=== PATIENT | female | born 1945 | race Caucasian/White ===

== ENCOUNTER → 2016-08-07 | Outpatient (CLI) | payer OTHER ==
[~2016-08-07] MED LIST: ALBU1AER9 INH; ASPEC81 PO; ATOR-22 PO; CHOL100010 PO; GLC500 PO; HYDCR25 EXT; METO25TA3 PO; OMEG10007 PO; PRLSR20 PO
--- NOTE | 2016-08-07 13:05 | MAMMOGRAPHY REPORT ---
BILATERAL DIGITAL SCREENING MAMMOGRAM WITH CAD: 08/07/2016 CLINICAL HISTORY: Routine screening. Patient has no complaints. TECHNIQUE: Current study was also evaluated with a Computer Aided Detection (CAD) system. Bilateral CC and MLO views were obtained. COMPARISON: Comparison is made to exams dated: 08/04/2015 mammogram, 08/01/2014 mammogram, 07/27/2013 m ammogram, 07/24/2012 mammogram, 07/17/2012 mammogram, and 07/15/2011 mammogram - [facility]. BREAST COMPOSITION: There are scattered areas of fibroglandular density in both breasts. FINDINGS: No suspicious masses, calcifications, or areas of architectural distortion are noted in ei ther breast. There has been no significant interval change compared to prior exams. Scattered bilater al benign-appearing calcifications are not significantly changed. A biopsy marker clip is again note d within the right medial breast. IMPRESSION: ACR BI-RADS CATEGORY 2: BENIGN There is no mammographic evidence of malignancy. A 1 year screening mammogram is recommended. The pa tient will receive written notification of the results. Approximately 10% of breast cancers are not detected with mammography. A negative mammographic report should not delay biopsy if a clinically suggestive mass is present. Jerilyn Hernández M.D. /:08/07/2016 09:25:23 Evaluator Transfer Students: Ermelinda MARTINEZ(Gurpreet)(Prabha)([place]), [facility] letter sent: Normal 1/2 BI-RADS Code: ACR BI-RADS Category 2: Benign
== END | disposition home or self-care (01) ==
LOC: C.MAMM 08:24
PROVIDERS: ATTEND Family Medicine
DX: Z12.31 Encounter for screening mammogram for malignant neoplasm of breast (principal)

== ENCOUNTER → 2017-01-21 | Day surgery (SDC) | payer OTHER ==
[2016-12-25 07:47] VITALS: Ht 161.3 cm; Wt 66.4 kg
[~2017-01-21] VITALS: Ht 161.3 cm; Wt 66.4 kg
[~2017-01-21] MED LIST changes: +500ML BSS 0.3ML EPI 1:1000PF IRRIG ONE; +ACETAMINOPHEN 325 MG TAB PO PRN; +ALBU18002 INH; -ALBU1AER9 INH; +AMVISC PLUS 0.8ML SYRINGE INT OCU ONE; +ASPCH81X PO; -ASPEC81 PO; +ATROPINE SULFATE 0.1 MG/ML 5ML SYR IV PRN; +BSS FLUSH ONE; -CHOL100010 PO; +EpHEDrine SULFATE INJ 50 MG/ML AMP IV PRN; +EpINEphrine INJ 1MG/ML AMP 1 MG/ML AMP ONE; -GLC500 PO; -HYDCR25 EXT; +LACTATED RINGER'S 1000ML 500 ML IV SCH; +LIDOCAINE 3.5% OPH GEL PER APPLICATION CHARGE ONE; +LIDOCAINE HCL 1% MPF 2 ML VIAL ONE; +LISI-461 PO; +METF750T PO; -METO25TA3 PO; +MIDAZOLAM HCL 1 MG/ML 2ML VIAL ONE; +NAPR1CAP12 PO; +OCUCOAT 1 ML SOLN IO ONE; +OMEP20CA9 PO; +PHENYLEPHRINE HCL 10% OP SOLN PER DROP CHARGE OPL SCH; +POVIDONE-IODINE OP SOLN 30 ML BTL ONE; -PRLSR20 PO; +PROPARACAINE 0.5% OP SOLN PER DROP CHARGE OPL SCH; +TOBRAMYCIN/DEXAMETHASONE OPH OINT PER APPLN CHARGE ONE
[2017-01-21] MEDS: PHENYLEPHRINE HCL 2.5% OP SOLN PER DROP CHARGE OPL SCH ×2 (06:42→06:49)
[2017-01-21] MEDS: TROPICAMIDE 1% OP SOLN PER DROP CHARGE OPL SCH ×2 (06:43→06:50)
[2017-01-21] MEDS: CYCLOPENTOLATE HCL 1% OP SOLN PER DROP CHARGE OPL SCH ×2 (06:44→06:51)
[2017-01-21] MEDS: KETOROLAC 0.5% OP SOLN PER DROP CHARGE OPL SCH ×2 (06:45→06:52)
[2017-01-21] MEDS: GATIFLOXACIN OP SOLN PER DROP CHARGE OPL SCH ×2 (06:46→06:56)
--- NOTE | 2017-01-21 06:59 | History & Physical Bridge - SC ---
H&P Re-Evaluation Bridge Note: I have examined the patient, reviewed the History & Physical and in the interval since the performance of the History & Physical I have noted the following changes of clinical significance: No changes noted
--- NOTE | 2017-01-21 07:44 | Discharge Instructions-SurgCtr ---
Discharge Instructions Date of Service Jan 21, 2017. Visit Reason for Visit: Left Cataract Discharge Discharge Diagnosis / Problem: cataract Discharge Goals Goal(s): Improve function Medications Stopped Medications Name(s): METFORMIN HELD 2 DAYS AGO Activity Recommendations Activity Limitations: per Instructions/Follow-up section Anesthesia . Post Anesthesia Instructions: If you have had General Anesthesia or IV Sedation: * Do not drive today. * Resume driving when surgeon permits. * Do not make important decisions or sign legal documents today. * Call surgeon for: 1. Temperature elevations greater than 101 degrees F. 2. Uncontrollable pain. 3. Excessive bleeding. 4. Persistent nausea and vomiting. 5. Medication intolerance (nausea, vomiting or rash). * For nausea and vomiting use only clear liquids such as: tea, soda, bouillon until nausea subsides, then gradually increase diet as tolerated. * If you have any concerns or questions, call your surgeon's office. If physician is unavailable and it is an emergency, call 911 or go to the nearest emergency room. . Diet Recommendations Home Diet: resume previous diet Procedures Procedures Performed: Left Cataract Phacoemulsification With Intraocular Lens Implant Pending Studies Studies pending at discharge: no Medical Emergencies . Who to Call and When: Medical Emergencies: If at any time you feel your situation is an emergency, please call 911 immediately. . Non-Emergent Contact Non-Emergency issues call your: [employer] . . "Provider Documentation" section prepared by Cash Sahu. .
[2017-01-21 07:45] VITALS: TEMP 36.6
--- NOTE | 2017-01-21 07:46 | [facility] Operative Report ---
Operative Report Date of Service Jan 21, 2017. Operative Report 1. PREOPERATIVE DIAGNOSIS: Cataract of the left eye. 2. POSTOPERATIVE DIAGNOSIS: Same. 3. PROCEDURE: Phacoemulsification with intraocular lens implantation of the left eye. SURGEON: Dr. Cash Sahu. ANESTHESIA: Topical Lidocaine gel, 1% Non- Preserved intracameral Lidocaine, and monitored intravenous sedation. INDICATIONS FOR THE PROCEDURE: The patient is a 71 - year-old female with a history of cataract of the left eye causing significant visual impairment. The details of the proposed procedure were explained to the patient who asked appropriate questions and following discussion of all risks, benefits and alternatives agreed to have the procedure done. 4. OPERATION AND FINDINGS: DESCRIPTION OF PROCEDURE: After informed consent was obtained, the patient was brought to the Operating Room at the [facility]. The patient was placed in a supine position and then the left eye was prepped and draped in the usual sterile fashion for intraocular surgery. A drop of topical Lidocaine gel was placed in the operative eye. A wire lid speculum was then placed in the fornices. A corneal paracentesis was then created temporally. The Non-Preserved Lidocaine was then instilled into the anterior chamber. The anterior chamber was then pressurized with viscoelastic. A 2.0 mm clear corneal incision was then created temporally. A cystotome was inserted into the anterior chamber and used to create a tear in the anterior lens capsule. This capsular tear was then used to create a small flap and the flap was dragged in a counterclockwise direction in order to create a continuous curvilinear capsulorrhexis. Hydrodissection was accomplished with balanced salt solution. Phacoemulsification of the lens nucleus was then performed in a standard [id number] technique. The phaco time was 29 seconds with an average power of 14 %. The remaining cortical material was removed using irrigation aspiration. The capsular bag was then filled with viscoelastic. A [employer]ch [employer] MI60L +21.5 diopters lens was then loaded into the injector and injected into the capsular bag. The remaining viscoelastic was removed with the irrigation aspiration handpiece. The wound was hydrated and then checked and found to be watertight. The intraocular pressure was checked and found to be adequate. The wire lid speculum was removed and the patient's face was cleaned and dried. TobraDex ointment was placed in the inferior fornix. The patient was discharged to the Recovery Room having tolerated the procedure well. There were no complications. The patient will be seen tomorrow in the office for follow-up. I attest to the content of the Intraoperative Record and any orders documented therein. Any exceptions are noted below.
--- NOTE | 2017-01-21 08:05 | Anesthesiology Progress Note ---
Anesthesia Post Op Note Date & Time Jan 21, 2017 at 08:05 Vital Signs Pain Intensity: 0 Vital Signs Past 12 Hours Date Time Temp Pulse Resp B/P (MAP) Pulse Ox O2 Delivery O2 Flow Rate FiO2 01/21/17 07:45 36.6 55 16 135/79 (97) 95 Room Air 01/21/17 06:34 36.8 62 22 154/82 (106) 94 Room Air Notes Mental Status: alert / awake / arousable, participated in evaluation Pt Amnestic to Procedure: No Nausea / Vomiting: adequately controlled Pain: adequately controlled Airway Patency, RR, SpO2: stable & adequate BP & HR: stable & adequate Hydration State: stable & adequate Anesthetic Complications: no major complications apparent Non distressing recall as discussed preop
[2017-01-21 08:11] VITALS: BP 154/83; PULSE 58; O2SAT 96
== END | disposition home or self-care (01) ==
LOC: X.SURG 06:06
PROVIDERS: ATTEND Ophthalmology
DX: E11.36 Type 2 diabetes mellitus with diabetic cataract (principal); I10 Essential (primary) hypertension; E78.5 Hyperlipidemia, unspecified; K21.9 Gastro-esophageal reflux disease without esophagitis; M81.0 Age-related osteoporosis without current pathological fracture; M15.9 Polyosteoarthritis, unspecified; Z85.828 Personal history of other malignant neoplasm of skin; Z79.82 Long term (current) use of aspirin; Z79.84 Long term (current) use of oral hypoglycemic drugs; Z79.899 Other long term (current) drug therapy; Z87.891 Personal history of nicotine dependence

== ENCOUNTER → 2017-02-18 | Day surgery (SDC) | payer OTHER ==
[2017-01-28 14:34] VITALS: Ht 161.3 cm; Wt 66.4 kg
[~2017-02-18] VITALS: Ht 161.3 cm; Wt 66.4 kg
[~2017-02-18] MED LIST changes: -PHENYLEPHRINE HCL 10% OP SOLN PER DROP CHARGE OPL SCH; -PROPARACAINE 0.5% OP SOLN PER DROP CHARGE OPL SCH; +PROPARACAINE 0.5% OP SOLN PER DROP CHARGE OPR SCH
[2017-02-18] MEDS: PHENYLEPHRINE HCL 2.5% OP SOLN PER DROP CHARGE OPR SCH ×2 (06:32→06:38)
[2017-02-18] MEDS: TROPICAMIDE 1% OP SOLN PER DROP CHARGE OPR SCH ×2 (06:33→06:39)
[2017-02-18] MEDS: CYCLOPENTOLATE HCL 1% OP SOLN PER DROP CHARGE OPR SCH ×2 (06:35→06:40)
[2017-02-18] MEDS: KETOROLAC 0.5% OP SOLN PER DROP CHARGE OPR SCH ×2 (06:36→06:41)
[2017-02-18] MEDS: GATIFLOXACIN OP SOLN PER DROP CHARGE OPR SCH ×2 (06:37→06:50)
--- NOTE | 2017-02-18 07:45 | [facility] Operative Report ---
Operative Report Date of Service Feb 18, 2017. Operative Report 1. PREOPERATIVE DIAGNOSIS: Cataract of the right eye. 2. POSTOPERATIVE DIAGNOSIS: Same. 3. PROCEDURE: Phacoemulsification with intraocular lens implantation of the right eye. SURGEON: Dr. Cash Sahu. ANESTHESIA: Topical Lidocaine gel, 1% Non- Preserved intracameral Lidocaine, and monitored intravenous sedation. INDICATIONS FOR THE PROCEDURE: The patient is a 72 - year-old female with a history of cataract of the right eye causing significant visual impairment. The details of the proposed procedure were explained to the patient who asked appropriate questions and following discussion of all risks, benefits and alternatives agreed to have the procedure done. 4. OPERATION AND FINDINGS: DESCRIPTION OF PROCEDURE: After informed consent was obtained, the patient was brought to the Operating Room at the [facility]. The patient was placed in a supine position and then the right eye was prepped and draped in the usual sterile fashion for intraocular surgery. A drop of topical Lidocaine gel was placed in the operative eye. A wire lid speculum was then placed in the fornices. A corneal paracentesis was then created temporally. The Non-Preserved Lidocaine was then instilled into the anterior chamber. The anterior chamber was then pressurized with viscoelastic. A 2.0 mm clear corneal incision was then created temporally. A cystotome was inserted into the anterior chamber and used to create a tear in the anterior lens capsule. This capsular tear was then used to create a small flap and the flap was dragged in a counterclockwise direction in order to create a continuous curvilinear capsulorrhexis. Hydrodissection was accomplished with balanced salt solution. Phacoemulsification of the lens nucleus was then performed in a standard [id number]-[id number]-[id number] technique. The phaco time was 28 seconds with an average power of 18 %. The remaining cortical material was removed using irrigation aspiration. The capsular bag was then filled with viscoelastic. A Bausch [employer] Lomb MI60L +20.5 diopters lens was then loaded into the injector and injected into the capsular bag. The remaining viscoelastic was removed with the irrigation aspiration handpiece. The wound was hydrated and then checked and found to be watertight. The intraocular pressure was checked and found to be adequate. The wire lid speculum was removed and the patient's face was cleaned and dried. TobraDex ointment was placed in the inferior fornix. The patient was discharged to the Recovery Room having tolerated the procedure well. There were no complications. The patient will be seen tomorrow in the office for follow-up. I attest to the content of the Intraoperative Record and any orders documented therein. Any exceptions are noted below.
--- NOTE | 2017-02-18 07:46 | Discharge Instructions-SurgCtr ---
Discharge Instructions Date of Service Feb 18, 2017. Visit Reason for Visit: Cataract Right Eye Discharge Discharge Diagnosis / Problem: cataract Discharge Goals Goal(s): Improve function Medications Stopped Medications Name(s): Metformin-last dose 02/14/17 Activity Recommendations Activity Limitations: per Instructions/Follow-up section Anesthesia . Post Anesthesia Instructions: If you have had General Anesthesia or IV Sedation: * Do not drive today. * Resume driving when surgeon permits. * Do not make important decisions or sign legal documents today. * Call surgeon for: 1. Temperature elevations greater than 101 degrees F. 2. Uncontrollable pain. 3. Excessive bleeding. 4. Persistent nausea and vomiting. 5. Medication intolerance (nausea, vomiting or rash). * For nausea and vomiting use only clear liquids such as: tea, soda, bouillon until nausea subsides, then gradually increase diet as tolerated. * If you have any concerns or questions, call your surgeon's office. If physician is unavailable and it is an emergency, call 911 or go to the nearest emergency room. . Diet Recommendations Home Diet: resume previous diet Procedures Procedures Performed: Right Eye Cataract Phacoemulsification With Intraoculars Lens Implant Pending Studies Studies pending at discharge: no Medical Emergencies . Who to Call and When: Medical Emergencies: If at any time you feel your situation is an emergency, please call 911 immediately. . Non-Emergent Contact Non-Emergency issues call your: [employer] . . "Provider Documentation" section prepared by Cash Sahu. .
[2017-02-18 07:48] VITALS: TEMP 36.6
--- NOTE | 2017-02-18 08:04 | Anesthesia Progress Nt - [facility] ---
Anesthesia Post Op Note Date & Time Feb 18, 2017 at 08:03 Vital Signs Pain Intensity: 0 Vital Signs Past 12 Hours Date Time Temp Pulse Resp B/P (MAP) Pulse Ox O2 Delivery O2 Flow Rate FiO2 02/18/17 07:48 36.6 60 16 121/78 (92) 96 Room Air 02/18/17 06:23 36.4 66 16 156/83 (107) 96 Room Air Notes Mental Status: alert / awake / arousable, participated in evaluation Pt Amnestic to Procedure: Yes Nausea / Vomiting: adequately controlled Pain: adequately controlled Airway Patency, RR, SpO2: stable & adequate BP & HR: stable & adequate Hydration State: stable & adequate Anesthetic Complications: no major complications apparent
[2017-02-18 08:14] VITALS: BP 146/80; PULSE 51; O2SAT 98
== END | disposition home or self-care (01) ==
LOC: X.SURG 06:06
PROVIDERS: ATTEND Ophthalmology
DX: E11.36 Type 2 diabetes mellitus with diabetic cataract (principal); H26.9 Unspecified cataract; I10 Essential (primary) hypertension; E78.5 Hyperlipidemia, unspecified; M81.0 Age-related osteoporosis without current pathological fracture; Z91.040 Latex allergy status; Z88.5 Allergy status to narcotic agent

== ENCOUNTER 2017-05-19 10:26 | Observation (INO) | payer OTHER ==
[~2017-05-19] VITALS: Ht 160 cm; Wt 66.6 kg
[~2017-05-19 10:26] MED LIST changes: -500ML BSS 0.3ML EPI 1:1000PF IRRIG ONE; -ACETAMINOPHEN 325 MG TAB PO PRN; -AMVISC PLUS 0.8ML SYRINGE INT OCU ONE; -ATROPINE SULFATE 0.1 MG/ML 5ML SYR IV PRN; -BSS FLUSH ONE; -EpHEDrine SULFATE INJ 50 MG/ML AMP IV PRN; -EpINEphrine INJ 1MG/ML AMP 1 MG/ML AMP ONE; -LACTATED RINGER'S 1000ML 500 ML IV SCH; -LIDOCAINE 3.5% OPH GEL PER APPLICATION CHARGE ONE; -LIDOCAINE HCL 1% MPF 2 ML VIAL ONE; -MIDAZOLAM HCL 1 MG/ML 2ML VIAL ONE; -OCUCOAT 1 ML SOLN IO ONE; -POVIDONE-IODINE OP SOLN 30 ML BTL ONE; -PROPARACAINE 0.5% OP SOLN PER DROP CHARGE OPR SCH; -TOBRAMYCIN/DEXAMETHASONE OPH OINT PER APPLN CHARGE ONE
[2017-05-19] MEDS ORDERED: SODIUM CHLORIDE 0.9% 1000ML 1,000 ML IV STA (11:00)
[2017-05-19 11:10] LABS: BASO % 1.2 %; BASO ABS # 0.18 K/uL (0-0.2); EOS % 2.8 %; EOS ABS # 0.41 K/uL (0-0.5); HEMATOCRIT 50.6 % (37-47); HEMOGLOBIN 16.1 g/dL (12.0-16.0); IG# 0.08 K/uL (0.00-0.02); LYMPH % 13.2 %; LYMPH ABS # 1.94 K/uL (1.2-3.4); MEAN CELL VOLUME 75.7 fL (80-100); MEAN CORPUSCULAR HEMOGLOBIN 24.1 pg (25-34); MEAN CORPUSCULAR HGB CONC 31.8 g/dl (32-36); MONO % 5.1 %; MONO ABS # 0.75 K/uL (0.11-0.59); NEUT % 77.2 %; NEUT ABS # 11.35 K/uL (1.4-6.5); PLATELET COUNT 655 K/uL (130-400); RED CELL DISTRIBUTION WIDTH CV 18.1 % (11.5-14.5); RED CELL DISTRIBUTION WIDTH SD 49.5 fL (36.4-46.3); WHITE BLOOD COUNT 14.71 K/uL (4.8-10.8)
[2017-05-19] MEDS ORDERED: ACETTAB15 PO (11:25)
[2017-05-19] MEDS ORDERED: CHOL1000 PO (11:25)
[2017-05-19] MEDS ORDERED: MAGN400T6 PO (11:25)
[2017-05-19] MEDS ORDERED: DICL1GEL12 TOP (11:25)
[2017-05-19 11:29] LABS: ALBUMIN 4.1 gm/dl (3.4-5.0); ALT/SGPT 25 U/L (12-78); BLOOD UREA NITROGEN 17 mg/dl (7-18); CALCIUM 9.5 mg/dl (8.5-10.1); CARBON DIOXIDE 27 mmol/L (21-32); CREATININE 0.99 mg/dl (0.60-1.20); GLUCOSE 99 mg/dl (70-99); LIPASE 182 U/L (73-393); POTASSIUM 4.1 mmol/L (3.5-5.1); SODIUM 138 mmol/L (136-145)
[2017-05-19 11:34] LABS: ALKALINE PHOSPHATASE 123 U/L (45-117); AST/SGOT 28 U/L (15-37); TOTAL PROTEIN 7.4 gm/dl (6.4-8.2)
--- NOTE | 2017-05-19 11:36 | DIAGNOSTIC IMAGING REPORT ---
CHEST ONE VIEW PORTABLE CLINICAL HISTORY: Chest pain. Left shoulder and jaw pressure. COMPARISON STUDY: Chest radiograph March 21, 2011. FINDINGS: Lung volumes are normal. There is no pneumothorax or pleural effusion. Cardiomediastinal silhouette is unremarkable. There is no consolidation. There may be several calcified left hilar lymph nodes. IMPRESSION: No definite acute cardiopulmonary findings. Electronically signed by: Kvng Navarro M.D. 05/19/2017 11:34 AM Dictated Date/Time: 05/19/2017 11:33 AM
[2017-05-19] MEDS ORDERED: NITROGLYCERIN 0.4 MG SL PER TAB CHARGE SL PRN (12:30)
[2017-05-19] MEDS ORDERED: MAGNESIUM HYDROXIDE SUSP 30 ML UDC PO PRN (12:30)
[2017-05-19] MEDS ORDERED: ALUMINUM/MAGNESIUM/SIMETH (MAALOX MAX) 30 ML UDC PO PRN (12:30)
[2017-05-19] MEDS ORDERED: POLYETHYLENE (MIRALAX) 17 GM PACK PO PRN (12:30)
[2017-05-19] MEDS ORDERED: ACETAMINOPHEN 325 MG TAB PO PRN (12:30)
[2017-05-19] MEDS ORDERED: ONDANSETRON INJ 2 MG/ML 2 ML VIAL IV PRN (12:30)
[2017-05-19] MEDS ORDERED: DEXTROSE 50% 50 ML SYR IV PRN (12:45)
[2017-05-19] MEDS ORDERED: GLUCOSE 10 TABS/TUBE PO PRN (12:45)
[2017-05-19] MEDS ORDERED: GLUCOSE 40% GEL 15 GM TUBE PO PRN (12:45)
[2017-05-19] MEDS ORDERED: ALBUTEROL HFA 8 GM INHALER INH PRN (12:45)
[2017-05-19] MEDS ORDERED: GLUCAGON FOR INJ 1 MG VIAL SQ PRN (12:45)
--- NOTE | 2017-05-19 12:58 | DIAGNOSTIC IMAGING REPORT ---
LEFT SHOULDER 3 VIEWS HISTORY: L shoulder pain COMPARISON: None. FINDINGS: There is no fracture or dislocation. Soft tissues are unremarkable. Mild AC joint arthrosis. There is also mild cartilage space narrowing within the glenohumeral joint consistent with degenerative change. The left clavicle is intact. The bones are osteopenic. IMPRESSION: No fractures. Mild degenerative changes. Electronically signed by: Bebo Dumont M.D. 05/19/2017 12:57 PM Dictated Date/Time: 05/19/2017 12:54 PM
[2017-05-19 13:45] VITALS: BP 159/92; PULSE 80; TEMP 36.5; O2SAT 95; Ht 160 cm; Wt 66.6 kg
[2017-05-19] MEDS: SODIUM CHLORIDE 0.9% 1000ML 1,000 ML IV SCH ×2 (14:48→16:25)
[2017-05-19] MEDS ORDERED: IV FLUIDS COMPLETED PRN (15:15)
[2017-05-19] MEDS ORDERED: INSULIN ASPART 100 UNITS/ML 3 ML PEN SC SCH (16:30)
[2017-05-19] MEDS: DICLOFENAC SOD 1% GEL 100 GM TUBE EXT SCH ×2 (17:00→20:21)
--- NOTE | 2017-05-19 17:26 | EMERGENCY ROOM VISIT NOTE ---
ED Visit Note First contact with patient: 10:46 Chief Complaint: Chest pain. History of Present Illness: Ms. Alex is a 72 year-old white female who ambulates into the ED accompanied by her complaining of left-sided chest pain. Historically patient reports dyslipidemia, diabetes and right lower leg DVT. Patient reports she has been feeling well over the last few days. She reports shortly after waking this morning at approximately 6 AM, approximately 4.5 hours ago, she developed an acute onset of left-sided chest pain. Since that time her pain has been constant and gradually increasing in intensity. She places her discomfort just inferior to the left mid to distal clavicle. She describes the discomfort as a pressure-like sensation. She rates her discomfort 5/10. Just prior to coming to the hospital at home she reported she started having radiation of her discomfort of the left side of her neck. She has not identified any aggravating or alleviating factors related to her discomfort. She has not taken any medication for her discomfort prior to arrival at the hospital. Associated with her pain she reports she was having mild lightheadedness. She denies fevers, chills, sweats, skin eruptions, skin color changes, headache , upper respiratory tract symptoms, cough, wheezing, shortness of breath, palpitations, orthopnea, dependent edema, previous clots, claudication, cramping , abdominal pain, nausea/vomiting, diarrhea, constipation, back/flank pain. Review of Systems: As noted above in history of present illness. All body systems were reviewed and found to be negative as noted above. Past Medical History: As previously noted, basal cell carcinoma, GERD, hyperplastic polyps, left knee arthroscope, liposuction, cholecystectomy, polypectomy. Current Medications: Medications Dose Route/Sig Max Daily Dose Days Date Category Excedrin Tension Headache (Acetaminophen-Caffeine) 1 Tab Tab 1 Tab PO DIRECTED 05/19/17 Reported Mag-Ox (Magnesium Oxide) 400 Mg Tab 400 Mg PO DAILY 05/19/17 Reported Voltaren 1% Top Gel (Diclofenac Sodium (Topical)) 1 % Gel 2 Gm TOP QID 05/19/17 Reported Vitamin D3 (Cholecalciferol) 1,000 Unit Tab 1,000 Units PO DAILY 90 05/19/17 Reported [place]-3 (Fish Oil) 1 Ea Cap 1 Cap PO QAM 12/25/16 Reported Proair Respiclick (Albuterol Sulfate) 108 Mcg/Act Aer 2 Puff INH Q4H PRN 12/25/16 Reported Prilosec (Omeprazole) 20 Mg Cap 20 Mg PO QAM 12/25/16 Reported Aspirin Chewable (Aspirin) 81 Mg Chew 81 Mg PO QAM 12/25/16 Reported Lipitor (Atorvastatin Calcium) 20 Mg Tab 20 Mg PO QAM 12/25/16 Reported Zestril (Lisinopril) 10 Mg Tab 10 Mg PO QAM 12/25/16 Reported Glucophage Er (Metformin Hcl) 750 Mg Tab 750 Mg PO QAM 12/25/16 Reported Allergies to Medications: Social History: Physical Examination: Vital Signs: GENERAL: -year-old female in mild to moderate distress due to pain, nontoxic- appearing, afebrile and hemodynamically stable. NEUROLOGICAL: Awake, alert and oriented to person, place and time. Answering questions appropriately and following commands. Normal gait. Good hand eye coordination. SKIN: Warm, dry and pink. No soft tissue eruptions or trauma noted. HEENT: Atraumatic and normocephalic. PERRLA. Sclera white and conjunctiva pink. Oral cavity moist and pink. Pharynx is nonerythematous or edematous. Speech normal. No lymphadenopathy. Trachea midline. No jugular venous distention. No carotid bruits. BACK: No tenderness over the bony spine. No CVA tenderness. THORAX: Lungs sounds are clear to auscultation and equal bilaterally with symmetrical chest wall. No wheezing, rales or rhonchi. No crepitus, tenderness , subcutaneous air or deformities noted. HEART: Regular rate and rhythm. No gallops, rubs or murmurs are appreciated. No lifts, heaves or thrills. PMI is not displaced. ABDOMEN: Flat, soft and nontender. Positive bowel sounds in all quadrants. No guarding, rigidity or organomegaly. EXTREMITIES: Moves all extremities well on command and with purpose. All distal neurovascular statuses are intact and equal bilaterally. No dependent edema or calf tenderness/cords. ED Course: Patient is assessed as noted above. Laboratory Testing: Test 05/19/17 10:48 05/19/17 11:10 05/19/17 11:30 Range/Units White Blood Count 14.71 4.8-10.8 K/uL Red Blood Count 6.68 4.2-5.4 M/uL Hemoglobin 16.1 12.0-16.0 g/dL Hematocrit 50.6 37-47 % Mean Corpuscular Volume 75.7 80-100 fL Mean Corpuscular Hemoglobin 24.1 25-34 pg Mean Corpuscular Hemoglobin Concent 31.8 32-36 g/dl Platelet Count 655 130-400 K/uL Neutrophils (%) (Auto) 77.2 % Lymphocytes (%) (Auto) 13.2 % Monocytes (%) (Auto) 5.1 % Eosinophils (%) (Auto) 2.8 % Basophils (%) (Auto) 1.2 % Neutrophils # (Auto) 11.35 1.4-6.5 K/uL Lymphocytes # (Auto) 1.94 1.2-3.4 K/uL Monocytes # (Auto) 0.75 0.11-0.59 K/uL Eosinophils # (Auto) 0.41 0-0.5 K/uL Basophils # (Auto) 0.18 0-0.2 K/uL RDW Standard Deviation 49.5 36.4-46.3 fL RDW Coefficient of Variation 18.1 11.5-14.5 % Immature Granulocyte % (Auto) 0.5 % Immature Granulocyte # (Auto) 0.08 0.00-0.02 K/uL Prothrombin Time 10.7 9.0-12.0 SECONDS Prothromb Time International Ratio 1.0 0.9-1.1 Sodium Level 138 136-145 mmol/L Potassium Level 4.1 3.5-5.1 mmol/L Chloride Level 103 98-107 mmol/L Carbon Dioxide Level 27 21-32 mmol/L Anion Gap 8.0 3-11 mmol/L Blood Urea Nitrogen 17 7-18 mg/dl Creatinine 0.99 0.60-1.20 mg/dl Est Creatinine Clear Calc Drug Dose 48.9 ml/min Estimated GFR () 66.4 Estimated GFR (Non- 57.3 BUN/Creatinine Ratio 17.6 10-20 Random Glucose 99 70-99 mg/dl Calcium Level 9.5 8.5-10.1 mg/dl Total Bilirubin 1.2 0.2-1 mg/dl Direct Bilirubin 0.2 0-0.2 mg/dl Aspartate Amino Transf (AST/SGOT) 28 15-37 U/L Alanine Aminotransferase (ALT/SGPT) 25 12-78 U/L Alkaline Phosphatase 123 45-117 U/L Total Creatine Kinase 56 26-192 U/L Creatine Kinase MB 1.0 0.5-3.6 ng/ml Creatine Kinase MB Ratio 1.8 0-3.0 Troponin I < 0.015 0-0.045 ng/ml Total Protein 7.4 6.4-8.2 gm/dl Albumin 4.1 3.4-5.0 gm/dl Lipase 182 73-393 U/L Thyroid Stimulating Hormone (TSH) 1.340 0.300-4.500 uIu/ml Hepatitis C Antibody Screen NEG NEG Bedside D-Dimer 410 0-450 ng/mlFEU Bedside Troponin I < 0.030 0-0.045 ng/ml Urine Color YELLOW Urine Appearance CLEAR CLEAR Urine pH 7.0 4.5-7.5 Urine Specific [place] 1.006 1.000-1.030 Urine Protein NEG NEG Urine Glucose (UA) NEG NEG Urine Ketones NEG NEG Urine Occult Blood NEG NEG Urine Nitrite NEG NEG Urine Bilirubin NEG NEG Urine Urobilinogen NEG NEG Urine Leukocyte Esterase NEG NEG Chest X-Rays: Was read by myself and the radiologist showing no acute infiltrates, effusions or pneumothorax. Normal heart silhouette and bony anatomy. EKG: Was read by myself and reviewed with Dr. Chapman; shows normal sinus rhythm with a ventricular rate of 72 bpm. Normal accesses and complexes. There is ST depressions in lead I, II, III and aVF when compared to previous from March 2011. Patient was hydrated with normal saline, they received for pain. Patient was hydrated with normal saline; she was offered pain medication and refused. Patient was reassessed multiple times during her stay in the emergency department. Patient's case was reviewed with Dr. Chapman; he independently assessed the patient we agreed on diagnostic approach, treatment, disposition and plan. Patient's case was consulted with case management and the [facility] for medical observation/admission. Patient and were educated about today's finding. Clinical Impression: Acute chest pain. Decision-Making: Initially my differential diagnosis I considered acute coronary syndrome, thoracic aneurysm, pneumothorax, pneumonia, pulmonary embolism, orthopedic shoulder injury and other causes. Disposition and Plan: Patient be brought into the hospital by the [facility]ist; please see their notes and orders for final disposition and plan. Patient was encouraged to follow-up with personal physician for recheck in 1-2 days. Patient was encouraged return the ED for worsening symptoms, fevers, or any new/ concerning symptoms.
--- NOTE | 2017-05-19 17:41 | ECHOCARDIOGRAM REPORT ---
*NOTICE TO RECEIVING [employer] This information is strictly Confidential and protected under [place] law. [place] law prohibits you from making any further disclosure of this information unless further disclosure is expressly permitted by the written consent of the person to whom it pertains or is authorized by law. A general authorization for the release of medical or other information is not sufficient for this purpose. Hospital accepts no responsibility if the information is made available to any other person, INCLUDING THE PATIENT. Interpretation Summary * Name: JIE MCDERMOTT Study Date: 05/19/2017 02:09 PM BP: 165/95 mmHg * Patient Location: [facility] HR: 85 * : 1945 (M/d/yyyy) Gender: Female Height: 64 in * Age: 72 yrs Ethnicity: CA Weight: 146 lb * Ordering Physician: Marisa Woods * Performed By: Ermelinda Soto RCS * * Reason For Study: CHEST PAIN * BSA: 1.7 m2 * -- Conclusions -- * The left ventricle is normal in size. * There is moderate concentric left ventricular hypertrophy. * Ejection Fraction = 60-65%. * The left ventricular wall motion is normal. * Grade I diastolic dysfunction, (abnormal relaxation pattern). * The right ventricular systolic function is normal. * The left atrium is moderately dilated. * The right atrium is mildly dilated. * There is mild mitral regurgitation. * There is trace tricuspid regurgitation. Procedure Details * A complete two-dimensional transthoracic echocardiogram was performed (2D, M-mode, Doppler and color flow Doppler). Left Ventricle * The left ventricle is normal in size. * There is moderate concentric left ventricular hypertrophy. * Left ventricular systolic function is normal. * Ejection Fraction = 60-65%. * The left ventricular wall motion is normal. Right Ventricle * The right ventricle is normal size. * The right ventricular systolic function is normal. Atria * The left atrium is moderately dilated. * The right atrium is mildly dilated. * The interatrial septum is intact with no evidence for an atrial septal defect. Mitral Valve * There is mild to moderate mitral annular calcification. * There is mild mitral regurgitation. Tricuspid Valve * The tricuspid valve is not well visualized, but is grossly normal. * There is trace tricuspid regurgitation. Aortic Valve * The aortic valve is tricuspid. The leaflet thickness if normal. There is no aortic stenosis, and no significant insufficiency. * Aortic stenosis is absent. * There is no significant aortic regurgitation. Pulmonic Valve * The pulmonic valve is not well seen, but is grossly normal. * There is no significant pulmonary regurgitation. Great Vessels * The aortic root and proximal ascending aorta are normal sized. Pericardium/Pleural * The pericardium appears normal. Left Ventricular Diastolic Function * Grade I diastolic dysfunction, (abnormal relaxation pattern). MMode 2D Measurements and Calculations IVSd 1.2 cm IVSs 1.5 cm LVIDd 4.1 cm LVIDs 2.6 cm LVPWd 1.1 cm LVPWs 1.3 cm IVS/LVPW 1.1 FS 36.0 % EDV(Teich) 72.6 ml ESV(Teich) 24.6 ml EF(Teich) 66.2 % EDV(cubed) 67.1 ml ESV(cubed) 17.6 ml EF(cubed) 73.8 % % IVS thick 22.3 % % LVPW thick 15.6 % LV mass(C)d 164.1 grams LV mass(C)dI 95.9 grams/m\S\2 LV mass(C)s 116.7 grams LV mass(C)sI 68.2 grams/m\S\2 SV(Teich) 48.1 ml SI(Teich) 28.1 ml/m\S\2 SV(cubed) 49.5 ml SI(cubed) 28.9 ml/m\S\2 Ao root diam 2.9 cm Ao root area 6.4 cm\S\2 ACS 2.0 cm LA dimension 4.3 cm LA/Ao 1.5 LVOT diam 2.0 cm LVOT area 3.1 cm\S\2 LVAd ap4 15.3 cm\S\2 LVLd ap4 5.4 cm EDV(MOD-sp4) 36.9 ml EDV(sp4-el) 37.3 ml LVAs ap4 10.7 cm\S\2 LVLs ap4 4.9 cm ESV(MOD-sp4) 18.9 ml ESV(sp4-el) 19.6 ml EF(MOD-sp4) 49.0 % EF(sp4-el) 47.4 % LVAd ap2 17.2 cm\S\2 LVLd ap2 6.4 cm EDV(MOD-sp2) 39.2 ml EDV(sp2-el) 39.3 ml LVAs ap2 11.7 cm\S\2 LVLs ap2 5.3 cm ESV(MOD-sp2) 20.9 ml ESV(sp2-el) 22.0 ml EF(MOD-sp2) 46.7 % EF(sp2-el) 44.2 % LVLd %diff 15.7 % EDV(MOD-bp) 41.3 ml LVLs %diff 7.1 % ESV(MOD-bp) 20.5 ml EF(MOD-bp) 50.2 % SV(MOD-sp4) 18.1 ml SI(MOD-sp4) 10.6 ml/m\S\2 SV(MOD-sp2) 18.3 ml SI(MOD-sp2) 10.7 ml/m\S\2 SV(MOD-bp) 20.7 ml SI(MOD-bp) 12.1 ml/m\S\2 SV(sp4-el) 17.7 ml SI(sp4-el) 10.3 ml/m\S\2 SV(sp2-el) 17.4 ml SI(sp2-el) 10.2 ml/m\S\2 Doppler Measurements and Calculations MV E max dada 89.5 cm/sec MV A max dada 96.0 cm/sec MV E/A 0.93 MV P1/2t max dada 96.5 cm/sec MV P1/2t 83.0 msec MVA(P1/2t) 2.6 cm\S\2 MV dec slope 340.4 cm/sec\S\2 MV dec time 0.19 sec Ao V2 max 188.7 cm/sec Ao max PG 14.2 mmHg Ao max PG (full) 6.7 mmHg JEFF(V,A) 2.2 cm\S\2 JEFF(V,D) 2.2 cm\S\2 LV V1 max PG 7.5 mmHg LV V1 max 137.0 cm/sec MR max dada 534.5 cm/sec MR max PG 114.3 mmHg PA V2 max 125.9 cm/sec PA max PG 6.3 mmHg PI max dada 215.4 cm/sec PI max PG 18.6 mmHg PI dec slope 219.0 cm/sec\S\2 PI P1/2t 288.0 msec TR max dada 290.7 cm/sec
--- NOTE | 2017-05-19 18:40 | History and Physical ---
History & Physical Date & Time of Service: May 19, 2017 at 18:40 Chief Complaint: Chest Pain Primary Care Physician: Jimy Davila D.OAnastacia History of Present Illness Source: patient 72-year-old female with past medical history of hypertension, type 2 diabetes, presented to ER with complaint of chest heaviness, discomfort radiation to left jaw started this morning At baseline patient is very active, goes to gym , workout done last , had no complaint of chest pain/heaviness/shortness of breath with strenuous activity On Friday she had open house tour at [facility], went up and down multiple flights of stairs-did not had any symptoms No prior history of PR or coronary artery disease Positive family history of coronary artery disease including 1 brother who is 5 years younger had 2 stent placed Father had PR at age 68; This morning patient mentioned her initial sensation was almost similar to acid reflux, Which which eventually lead to chest heaviness At present does not have any numbness or discomfort on the left jaw Still having sensation of chest heaviness No hypoxia, no palpitation, no orthopnea No syncopal episode Past Medical/Surgical History Medical Problems: (1) Chest pain Social History Smoking Status: Never Smoker Marital Status: Occupational Status: employed Immunizations History of Influenza Vaccine: Yes History of Tetanus Vaccine?: Yes History of Pneumococcal: Yes Pneumococcal Date: Nov 15, 2009 History of Hepatitis B Vaccine: Unknown Multi-Drug Resistant Organisms History of MDRO: No Allergies Coded Allergies: Iodine (Verified Allergy, Intermediate, HIVES- ALSO SEAFOOD-HIVES, 02/18/17) Iothalamate (Verified Allergy, Intermediate, HIVES, 02/18/17) Latex1 -Allergic Contact Dermititis (Verified Allergy, Intermediate, HIVES , 02/18/17) Iodinated Contrast Media (Verified Allergy, Unknown, HIVES TO RADIO OPAQUE CONTRAST, 02/18/17) Morphine (Verified Allergy, Unknown, hives, 02/18/17) Hydrocodone (Verified Adverse Reaction, Mild, BAD TASTE IN MOUTH, 02/18/17) Lactose (Verified Adverse Reaction, Mild, INTOLERANT, 02/18/17) Sulfa Antibiotics (Verified Adverse Reaction, Unknown, UPSET STOMACH, ) Home Medications Scheduled Acetaminophen-Caffeine (Excedrin Tension Headache), 1 TAB PO DIRECTED Aspirin (Aspirin Chewable), 81 MG PO QAM Atorvastatin (Lipitor), 20 MG PO QAM Cholecalciferol (Vitamin D3), 1,000 UNITS PO DAILY Diclofenac Sodium (Topical) (Voltaren 1% Top Gel), 2 GM TOP QID Fish Oil ([place]-3), 1 CAP PO QAM Lisinopril (Zestril), 10 MG PO QAM Magnesium Oxide (Mag-Ox), 400 MG PO DAILY Metformin Hcl (Glucophage Er), 750 MG PO QAM Omeprazole (Prilosec), 20 MG PO QAM Scheduled PRN Albuterol Sulfate (Proair Respiclick), 2 PUFF INH Q4H PRN for Shortness of Breath Review of Systems Constitutional: No fever, No chills, No sweats, No weight loss, No weakness, No fatigue, No problem reported Eyes: No worsening of vision, No eye pain, No redness, No discharge, No diplopia, No problem reported ENT: No hearing loss, No unusual epistaxis, No nasal symptoms, No sore throat, No tinnitus, No dental problems, No trouble swallowing, No problem reported Respiratory: No cough, No sputum, No wheezing, No shortness of breath, No dyspnea on exertion, No dyspnea at rest, No hemoptysis, No problem reported Cardiovascular: + chest pain (Heaviness), + problem reported (Tenderness on the chest wall) Abdomen: No pain, No nausea, No vomiting, No diarrhea, No constipation, No GI bleeding, No problem reported Musculoskeletal: No joint pain, No muscle pain, No swelling, No calf pain, No problem reported Genitourinary - Female: No dysuria, No urinary frequency, No urinary urgency, No urinary incontinence, No urinary retention, No hematuria, No dysmenorrhea, No menorrhagia, No metrorrhagia, No rash, No vaginal bleeding, No vaginal discharge, No vaginal itching, No vulvodynia, No , No problem reported Neurologic: No memory loss, No paralysis, No weakness, No numbness/tingling, No vertigo, No balance problems, No problem reported Psychiatric: No depression symptoms, No anhedonism, No anxiety, No insomnia, No substance abuse, No problem reported Endocrine: No fatigue, No excessive thirst, No excessive urination, No problem reported Hematologic / Lymphatic: No abnormal bleeding/bruising, No clotting problems, No swollen lymph nodes, No night sweats, No problem reported Integumentary: No rash, No itch, No new/changing skin lesions, No color change , No bleeding, No problem reported Physical Exam Vital Signs Date Time Temp Pulse Resp B/P (MAP) Pulse Ox O2 Delivery O2 Flow Rate FiO2 05/19/17 13:45 36.5 80 16 159/92 95 Room Air 05/19/17 13:13 85 20 165/95 95 Room Air 05/19/17 12:00 65 21 95 Room Air 05/19/17 11:30 69 21 95 Room Air 05/19/17 11:01 73 20 151/96 95 Room Air 05/19/17 10:45 78 05/19/17 10:35 98 Room Air 05/19/17 10:35 98 Room Air 05/19/17 10:30 36.7 84 18 166/97 98 Room Air General Appearance: no apparent distress Head: normocephalic, atraumatic Eyes: normal inspection, sclerae normal ENT: normal ENT inspection Neck: supple, no JVD Respiratory/Chest: chest non-tender, lungs clear, normal breath sounds, no respiratory distress Cardiovascular: regular rate, rhythm, no JVD, + pertinent finding (Tenderness on palpation of) Abdomen/GI: normal bowel sounds, non tender, soft Extremities/Musculoskelatal: normal inspection, no calf tenderness, normal capillary refill, no pedal edema Neurologic/Psych: no motor/sensory deficits, alert, normal mood/affect, oriented x 3 Skin: normal color, warm/dry, no rash Lymphatic: no adenopathy Diagnostics Laboratory Results Results Past 24 Hours Test 05/19/17 10:48 05/19/17 11:10 05/19/17 11:30 05/19/17 16:22 Range/Units White Blood Count 14.71 4.8-10.8 K/uL Red Blood Count 6.68 4.2-5.4 M/uL Hemoglobin 16.1 12.0-16.0 g/dL Hematocrit 50.6 37-47 % Mean Corpuscular Volume 75.7 80-100 fL Mean Corpuscular Hemoglobin 24.1 25-34 pg Mean Corpuscular Hemoglobin Concent 31.8 32-36 g/dl Platelet Count 655 130-400 K/uL Neutrophils (%) (Auto) 77.2 % Lymphocytes (%) (Auto) 13.2 % Monocytes (%) (Auto) 5.1 % Eosinophils (%) (Auto) 2.8 % Basophils (%) (Auto) 1.2 % Neutrophils # (Auto) 11.35 1.4-6.5 K/uL Lymphocytes # (Auto) 1.94 1.2-3.4 K/uL Monocytes # (Auto) 0.75 0.11-0.59 K/uL Eosinophils # (Auto) 0.41 0-0.5 K/uL Basophils # (Auto) 0.18 0-0.2 K/uL RDW Standard Deviation 49.5 36.4-46.3 fL RDW Coefficient of Variation 18.1 11.5-14.5 % Immature Granulocyte % (Auto) 0.5 % Immature Granulocyte # (Auto) 0.08 0.00-0.02 K/uL Prothrombin Time 10.7 9.0-12.0 SECONDS Prothromb Time International Ratio 1.0 0.9-1.1 Sodium Level 138 136-145 mmol/L Potassium Level 4.1 3.5-5.1 mmol/L Chloride Level 103 98-107 mmol/L Carbon Dioxide Level 27 21-32 mmol/L Anion Gap 8.0 3-11 mmol/L Blood Urea Nitrogen 17 7-18 mg/dl Creatinine 0.99 0.60-1.20 mg/dl Est Creatinine Clear Calc Drug Dose 48.9 ml/min Estimated GFR () 66.4 Estimated GFR (Non- 57.3 BUN/Creatinine Ratio 17.6 10-20 Random Glucose 99 70-99 mg/dl Calcium Level 9.5 8.5-10.1 mg/dl Total Bilirubin 1.2 0.2-1 mg/dl Direct Bilirubin 0.2 0-0.2 mg/dl Aspartate Amino Transf (AST/SGOT) 28 15-37 U/L Alanine Aminotransferase (ALT/SGPT) 25 12-78 U/L Alkaline Phosphatase 123 45-117 U/L Total Creatine Kinase 56 26-192 U/L Creatine Kinase MB 1.0 0.5-3.6 ng/ml Creatine Kinase MB Ratio 1.8 0-3.0 Troponin I < 0.015 0-0.045 ng/ml Total Protein 7.4 6.4-8.2 gm/dl Albumin 4.1 3.4-5.0 gm/dl Lipase 182 73-393 U/L Thyroid Stimulating Hormone (TSH) 1.340 0.300-4.500 uIu/ml Hepatitis C Antibody Screen NEG NEG Bedside D-Dimer 410 0-450 ng/mlFEU Bedside Troponin I < 0.030 0-0.045 ng/ml Urine Color YELLOW Urine Appearance CLEAR CLEAR Urine pH 7.0 4.5-7.5 Urine Specific Oliver 1.006 1.000-1.030 Urine Protein NEG NEG Urine Glucose (UA) NEG NEG Urine Ketones NEG NEG Urine Occult Blood NEG NEG Urine Nitrite NEG NEG Urine Bilirubin NEG NEG Urine Urobilinogen NEG NEG Urine Leukocyte Esterase NEG NEG Bedside Glucose 116 70-90 mg/dl Test 05/19/17 18:30 Range/Units CXR normal Normal EKG Impression Assessment and Plan CHEST PAIN/ANGINA EQUIVALENT Presented with chest heaviness and discomfort/GERD symptoms/sensation radiating to left jaw Risk factors includes: Family history of coronary artery disease/hypertension/ type 2 diabetes Cardiac markers 2 is negative Resting echo Shows left ventricle in normal size There is moderate concentric left ventricular hypertrophy Ejection fraction 60-65% Left ventricular wall motion and normal Grade 1 diastolic dysfunction Patient is ordered for n.p.o. past midnight Cardiology consult Cardiac stress test in a.m. LEUKOCYTOSIS/ELEVATED HEMOGLOBIN HEMATOCRIT/THROMBOCYTOSIS Possible due to dehydration? Report of strenuous activity last couple of days Mentions she has been drinking enough fluids No report of fever chills No nausea vomiting or diarrhea Ordered for IV fluids Repeat CBC in a.m. Peripheral blood film for pathology review in a.m. lab HYPERTENSION Continue outpatient meds HYPERLIPIDEMIA Continue statin Fasting lipid panel ordered in a.m. lab TYPE 2 DIABETES Hold metformin Insulin sliding scale CODE STATUS: Full code DVT PROPHYLAXIS: Subcu heparin DISPOSITION Expect to be discharged home when medically stable Medicine follow-up with Dr. Jimy Zhang Level of Care Telemetry Advanced Directives Existing Living Will: Yes Existing Power of General Merchandise Manager: Yes Resuscitation Status FULL RESUSCITATION VTE Prophylaxis Risk Level: Moderate Given or contraindicated: Unfractionated heparin SQ
[2017-05-19] MEDS ORDERED: ACETAMINOPHEN PO PRN (19:15)
[2017-05-19] MEDS ORDERED: CAFFEIN PO PRN (19:15)
[2017-05-19] MEDS ORDERED: ASPIRIN PO PRN (19:15)
[2017-05-19 19:21] VITALS: BP 167/91; PULSE 75; TEMP 36.6; O2SAT 95
[2017-05-19] MEDS: HEPARIN SOD 5000 UNIT/0.5 ML CARP SQ SCH (20:20)
[2017-05-19 22:59] VITALS: BP 117/65; PULSE 72; TEMP 36.7; O2SAT 92
[2017-05-20 03:48] VITALS: BP 124/71; PULSE 58; TEMP 37; O2SAT 94
[2017-05-20] MEDS: HEPARIN SOD 5000 UNIT/0.5 ML CARP SQ SCH ×2 (06:00→14:00)
[2017-05-20 06:36] LABS: HEMATOCRIT 46.9 % (37-47); HEMOGLOBIN 14.8 g/dL (12.0-16.0); MEAN CELL VOLUME 76.4 fL (80-100); MEAN CORPUSCULAR HEMOGLOBIN 24.1 pg (25-34); MEAN CORPUSCULAR HGB CONC 31.6 g/dl (32-36); MEAN PLATELET VOLUME 12.4 fL (7.4-10.4); NUCLEATED RED BLOOD CELL ABS 0.03 K/uL (0-0); PLATELET COUNT 509 K/uL (130-400); RED CELL DISTRIBUTION WIDTH CV 17.8 % (11.5-14.5); RED CELL DISTRIBUTION WIDTH SD 49.7 fL (36.4-46.3)
[2017-05-20 06:59] VITALS: BP 138/83; PULSE 54; TEMP 36.6; O2SAT 95
[2017-05-20 07:05] LABS: HEMOGLOBIN A1C 6.7 % (4.5-5.6)
[2017-05-20 07:10] LABS: BLOOD UREA NITROGEN 15 mg/dl (7-18); CALCIUM 8.6 mg/dl (8.5-10.1); CARBON DIOXIDE 24 mmol/L (21-32); CHOLESTEROL 147 mg/dl (0-200); CREATININE 0.83 mg/dl (0.60-1.20); GLUCOSE 109 mg/dl (70-99); LDL CHOLESTEROL CALCULATED 78 mg/dl; SODIUM 139 mmol/L (136-145)
[2017-05-20 08:00] VITALS: O2SAT 95
[2017-05-20] MEDS ORDERED: PANTOprazole SOD 40 MG TAB PO SCH (09:00)
[2017-05-20] MEDS ORDERED: MAGNESIUM OXIDE 400 MG TAB PO SCH (09:00)
[2017-05-20] MEDS ORDERED: LISINOPRIL 10 MG TAB PO SCH (09:00)
[2017-05-20] MEDS ORDERED: ATORVASTATIN 20 MG TAB PO SCH (09:00)
[2017-05-20] MEDS ORDERED: OMEGA-3 (PURIFIED FISH OIL) 1 GM CAP PO SCH (09:00)
[2017-05-20] MEDS ORDERED: CHOLECALCIFEROL 1000 INTER.UNIT TAB PO SCH (09:00)
[2017-05-20] MEDS: DICLOFENAC SOD 1% GEL 100 GM TUBE EXT SCH ×2 (09:00→13:00)
[2017-05-20] MEDS ORDERED: ASPIRIN 81 MG ECTAB PO SCH (09:00)
--- NOTE | 2017-05-20 09:49 | Cardiology Consultation ---
Cardiology Consultation Date of Service May 20, 2017. (Sally Randolph PA-C) CARDIOLOGY ATTENDING ADDENDUM: The patient was seen and personally examined. Agree with Sally Randolph PA-C's findings and plans as documented above. The patient had a dobutamine stress test today that was negative. Cardiac standpoint I believe she can be discharged to outpatient follow-up. (Raffy Mclaughlin, ) Cardiology Consultation Requesting Physician: Dr. Woods Attending Scientific Illustrator: Dr. Mclaughlin History of Present Illness Patient is a 72 year old female with a past medical history significant for diabetes type II, dyslipidemia, hypertension, GERD, hx of basal cell carcinoma, and hx of DVT in . Patient denies prior cardiac history of NM, CAD, valvular pathologies, or arrhythmias. Patient had a dobutamine stress echo in 2011 here at [facility] which was negative for inducible ischemia with preserved LV function. She presented to [facility] ER yesterday with concerns regarding chest heaviness with radiation to b/l shoulders, and neck. Symptoms were present for about 4 hours prior to coming to ER. Symptoms occurred at rest. Pain was still present in ER. Negative cardiac enzymes. Initial EKG with inferior and lateral ST depression. Symptoms resolved without intervention or medications. WBC mildly elevated. Chest xray with questionable hilar adenopathy. No recent illness. She reports exercising on a regular basis with a personal protection specialist 1 time per week and participating in [employer]. She denies recent exertional chest pain or unusual dyspnea. On Friday she was active climbing stairs and walking a great distance at [employer] open house without exertional symptoms. She recalls one episode of chest pain several weeks ago while working. 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 Symptoms resolved with eructation. She reports long history of GERD, esophagitis. She takes Prilosec regularly and has frequent flare ups. At time of consult, patient feeling well. No recurrent chest heaviness since admission. She notes chest wall/epigastric tenderness with palpation of the area. She also notes mild lightheadedness from not eating this morning or last night. No SOB. No sense of palpitations or tachypalpitations. No orthopnea, PND or edema. No recent cough, fever, chills, or urinary symptoms. History 1. Diabetes 2. Dyslipidemia 3. Hx of DVT right leg 4. Basal Cell carcinoma 5. GERD 6. HTN Past Surgical History: 1. Multiple cosmetic procedures - face lift, liposuction, blepharoplasty 2. Left total knee arthroplasty - 2009 3. Laparoscopic cholecystectomy. Social History: Lives at home with . 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 Remote history of tobacco abuse, quitting 25+ years ago. No alcohol intake. Family History: Brother had 2 stents placed at age 58. Father had questionable NM and from complications of PVD and infection at age 68. Review Of Systems General: The patient denies weight change, night sweats, fever, chills. Head: The patient denies headache and prior head trauma. Cardiovascular: +chest discomfort yesterday. The patient denies dyspnea on exertion, palpitations, PND, orthopnea, edema, spontaneous shortness of breath, syncope and near syncope. Pulmonary: The patient denies cough, wheeze, pleurisy, hemoptysis, sputum, and excessive snoring. Gastrointestinal: The patient denies nausea, vomiting, diarrhea, constipation, bloating, hematemesis, hematochezia, and abdominal pain. Skin: The patient denies diaphoresis and rash. Musculoskeletal: The patient denies joint pain, joint swelling, myalgia, back pain, neck pain and prior injuries. Neurological: The patient denies prior stroke and seizures Allergies Coded Allergies: Latex1 -Allergic Contact Dermatitis (Verified Allergy, Intermediate, HIVES , 03/21/11) Hydrocodone (Verified Adverse Reaction, Mild, BAD TASTE IN MOUTH, 03/21/11) Iodine (Verified Allergy, Intermediate, HIVES- ALSO SEAFOOD-HIVES, 03/21/11) Iothalamate (Verified Allergy, Intermediate, HIVES, 03/21/11) Lactose (Verified Adverse Reaction, Mild, INTOLERANT, 03/21/11) Sulfa Drugs (Verified Adverse Reaction, Mild, upset stomach, 03/21/11) Iodinated Contrast Media (Verified Allergy, Unknown, HIVES TO RADIO OPAQUE CONTRAST, 03/21/11) Morphine Medications Reported Home Medications Medications Dose Route/Sig Max Daily Dose Days Date Category Excedrin Tension Headache (Acetaminophen-Caffeine) 1 Tab Tab 1 Tab PO DIRECTED 05/19/17 Reported Mag-Ox (Magnesium Oxide) 400 Mg Tab 400 Mg PO DAILY 05/19/17 Reported Voltaren 1% Top Gel (Diclofenac Sodium (Topical)) 1 % Gel 2 Gm TOP QID 05/19/17 Reported Vitamin D3 (Cholecalciferol) 1,000 Unit Tab 1,000 Units PO DAILY 90 05/19/17 Reported [place]-3 (Fish Oil) 1 Ea Cap 1 Cap PO QAM 12/25/16 Reported Proair Respiclick (Albuterol Sulfate) 108 Mcg/Act Aer 2 Puff INH Q4H PRN 12/25/16 Reported Prilosec (Omeprazole) 20 Mg Cap 20 Mg PO QAM 12/25/16 Reported Aspirin Chewable (Aspirin) 81 Mg Chew 81 Mg PO QAM 12/25/16 Reported Lipitor (Atorvastatin Calcium) 20 Mg Tab 20 Mg PO QAM 12/25/16 Reported Zestril (Lisinopril) 10 Mg Tab 10 Mg PO QAM 12/25/16 Reported Glucophage Er (Metformin Hcl) 750 Mg Tab 750 Mg PO QAM 12/25/16 Reported Physical Exam Last 8 Hrs Date Time Temp Pulse Resp B/P (MAP) Pulse Ox O2 Delivery O2 Flow Rate FiO2 05/20/17 06:59 36.6 54 16 138/83 (101) 95 Room Air 05/20/17 04:00 Room Air 05/20/17 03:48 37.0 58 18 124/71 (88) 94 Room Air General Appearance: Alert and Oriented x3. NAD. Anxious. Head: Normocephalic Atraumatic. Eyes: PERRLA, EOMI, conjunctiva and sclera clear Neck: Supple. No carotid bruits noted. No JVD. No HJR. Chest: Mild tenderness over chest wall (different than pain yesterday). Respiratory: Breath sounds clear to auscultation with scattered expiratory wheeze. Cardiovascular: Reg rate and rhythm. S1 and S2 noted. No murmurs, rubs, gallops. PMI non displaced. Abdomen: Normal bowel sounds, soft nontender. no abdominal bruits. Extremities: No edema, no clubbing or cyanosis. distal pulses 2/4 bilaterally Neuro: No focal deficits. Psychiatric: Normal affect. Data Imaging: chest xray on admission - no acute process. questionable hilar lymph nodes. -Echocardiogram this admission reviewed: -- Conclusions -- * The left ventricle is normal in size. * There is moderate concentric left ventricular hypertrophy. * Ejection Fraction = 60-65%. * The left ventricular wall motion is normal. * Grade I diastolic dysfunction, (abnormal relaxation pattern). * The right ventricular systolic function is normal. * The left atrium is moderately dilated. * The right atrium is mildly dilated. * There is mild mitral regurgitation. * There is trace tricuspid regurgitation. EKG: on admission - 05/19/17: NSR with nonspecific ST/T wave abnormality in inferior and lateral leads with mild ST depression Repeat EKG on 05/20 - NSR with improved ST depression. Normal EKG. Telemetry reviewed: NSR, occ PVC. No significant arrhythmias. LABS: Last 24 Hours Test 05/19/17 10:48 05/19/17 11:10 05/19/17 11:30 05/19/17 16:22 White Blood Count 14.71 K/uL Red Blood Count 6.68 M/uL Hemoglobin 16.1 g/dL Hematocrit 50.6 % Mean Corpuscular Volume 75.7 fL Mean Corpuscular Hemoglobin 24.1 pg Mean Corpuscular Hemoglobin Concent 31.8 g/dl Platelet Count 655 K/uL Neutrophils (%) (Auto) 77.2 % Lymphocytes (%) (Auto) 13.2 % Monocytes (%) (Auto) 5.1 % Eosinophils (%) (Auto) 2.8 % Basophils (%) (Auto) 1.2 % Neutrophils # (Auto) 11.35 K/uL Lymphocytes # (Auto) 1.94 K/uL Monocytes # (Auto) 0.75 K/uL Eosinophils # (Auto) 0.41 K/uL Basophils # (Auto) 0.18 K/uL RDW Standard Deviation 49.5 fL RDW Coefficient of Variation 18.1 % Immature Granulocyte % (Auto) 0.5 % Immature Granulocyte # (Auto) 0.08 K/uL Prothrombin Time 10.7 SECONDS Prothromb Time International Ratio 1.0 Sodium Level 138 mmol/L Potassium Level 4.1 mmol/L Chloride Level 103 mmol/L Carbon Dioxide Level 27 mmol/L Anion Gap 8.0 mmol/L Blood Urea Nitrogen 17 mg/dl Creatinine 0.99 mg/dl Est Creatinine Clear Calc Drug Dose 48.9 ml/min Estimated GFR () 66.4 Estimated GFR (Non- 57.3 BUN/Creatinine Ratio 17.6 Random Glucose 99 mg/dl Calcium Level 9.5 mg/dl Total Bilirubin 1.2 mg/dl Direct Bilirubin 0.2 mg/dl Aspartate Amino Transf (AST/SGOT) 28 U/L Alanine Aminotransferase (ALT/SGPT) 25 U/L Alkaline Phosphatase 123 U/L Total Creatine Kinase 56 U/L Creatine Kinase MB 1.0 ng/ml Creatine Kinase MB Ratio 1.8 Troponin I < 0.015 ng/ml Total Protein 7.4 gm/dl Albumin 4.1 gm/dl Lipase 182 U/L Thyroid Stimulating Hormone (TSH) 1.340 uIu/ml Hepatitis C Antibody Screen NEG Bedside D-Dimer 410 ng/mlFEU Bedside Troponin I < 0.030 ng/ml Urine Color YELLOW Urine Appearance CLEAR Urine pH 7.0 Urine Specific [place] 1.006 Urine Protein NEG Urine Glucose (UA) NEG Urine Ketones NEG Urine Occult Blood NEG Urine Nitrite NEG Urine Bilirubin NEG Urine Urobilinogen NEG Urine Leukocyte Esterase NEG Bedside Glucose 116 mg/dl Test 05/19/17 19:13 05/20/17 00:23 05/20/17 06:22 Troponin I < 0.015 ng/ml < 0.015 ng/ml < 0.015 ng/ml White Blood Count 12.60 K/uL Red Blood Count 6.14 M/uL Hemoglobin 14.8 g/dL Hematocrit 46.9 % Mean Corpuscular Volume 76.4 fL Mean Corpuscular Hemoglobin 24.1 pg Mean Corpuscular Hemoglobin Concent 31.6 g/dl RDW Standard Deviation 49.7 fL RDW Coefficient of Variation 17.8 % Platelet Count 509 K/uL Mean Platelet Volume 12.4 fL Nucleated RBC Absolute Count (auto) 0.03 K/uL Nucleated Red Blood Cells % 0.2 % Sodium Level 139 mmol/L Potassium Level 4.0 mmol/L Chloride Level 108 mmol/L Carbon Dioxide Level 24 mmol/L Anion Gap 7.0 mmol/L Blood Urea Nitrogen 15 mg/dl Creatinine 0.83 mg/dl Est Creatinine Clear Calc Drug Dose 57.0 ml/min Estimated GFR () 82.2 Estimated GFR (Non- 70.9 BUN/Creatinine Ratio 17.9 Random Glucose 109 mg/dl Estimated Average Glucose 146 mg/dl Hemoglobin A1c 6.7 % Calcium Level 8.6 mg/dl Triglycerides Level 186 mg/dl Cholesterol Level 147 mg/dl HDL Cholesterol 32 mg/dl LDL Cholesterol, Calculated 78 mg/dl VLDL Cholesterol, Calculated 37 mg/dl Cholesterol/HDL Ratio 4.6 Assessment & Plan 1. Chest pain - -Negative cardiac enzymes x3 -EKG with ST/T wave abnormality in inferior and lateral leads on admission. Mild ST/T wave depression in V4-V6 noted. Resolved per EKG this AM. -Echocardiogram shows normal systolic function, mild biatrial enlargement, grade I diastolic dysfunction. -Multiple cardiac risk factors including diabetes, dyslipidemia, hypertension , and family history of CAD. -Negative dobutamine in 2011. -recommend proceeding with dobutamine stress echo this AM for evaluation of underlying ischemia. 2. Hypertension - controlled. -Continue home medications 3. Dyslipidemia -continue Statin 4. Leukocytosis - unknown origin. Hilar lymph nodes on chest xray. May need further work up. Case to be discussed with Dr. Mclaughlin. Further recommendations pending the results of the dobutamine stress echo (Sally Randolph, PATeofilo)
[2017-05-20] MEDS ORDERED: DOBUTamine HCL 12.5 MG/ML 20 ML VIAL ONE (10:32)
[2017-05-20] MEDS ORDERED: METOPROLOL TARTRATE 1 MG/ML VIAL ONE (10:32)
[2017-05-20] MEDS ORDERED: ATROPINE SULFATE 0.1 MG/ML 5ML SYR ONE (10:32)
--- NOTE | 2017-05-20 11:19 | Progress Note ---
Medicine Progress Note Date & Time of Visit: May 20, 2017 at 10:58. Subjective Pt was seen and examined lying in bed with no distress Pt said that she feels much better now Pt said that she had been doing a lot of upper body exercise with her certified personal trainer She said that she was doing a lot of pulling Pt said that pain from her shoulder blade improves Pt said that she feels hungry Denies any chest pain, palpitation, dizziness and SOB currently Objective Last 8 Hrs Date Time Temp Pulse Resp B/P (MAP) Pulse Ox O2 Delivery O2 Flow Rate FiO2 05/20/17 08:00 95 Room Air 05/20/17 06:59 36.6 54 16 138/83 (101) 95 Room Air 05/20/17 04:00 Room Air 05/20/17 03:48 37.0 58 18 124/71 (88) 94 Room Air Physical Exam: General- No acute distress Head- atraumatic Eyes- PERRL, EOMI ENT- oropharynx clear Neck- supple, no JVD Lungs- clear to auscultation Heart- regular rhythm Abdomen- normal bowel sounds, soft Extremities- no calf tenderness Neuro- alert, oriented, PERRL, EOMI Skin- warm & dry Laboratory Results: Last 24 Hours Test 05/19/17 11:10 05/19/17 11:30 05/19/17 16:22 05/19/17 19:13 Bedside D-Dimer 410 ng/mlFEU Bedside Troponin I < 0.030 ng/ml Urine Color YELLOW Urine Appearance CLEAR Urine pH 7.0 Urine Specific [place] 1.006 Urine Protein NEG Urine Glucose (UA) NEG Urine Ketones NEG Urine Occult Blood NEG Urine Nitrite NEG Urine Bilirubin NEG Urine Urobilinogen NEG Urine Leukocyte Esterase NEG Bedside Glucose 116 mg/dl Troponin I < 0.015 ng/ml Test 05/20/17 00:23 05/20/17 06:22 Troponin I < 0.015 ng/ml < 0.015 ng/ml White Blood Count 12.60 K/uL Red Blood Count 6.14 M/uL Hemoglobin 14.8 g/dL Hematocrit 46.9 % Mean Corpuscular Volume 76.4 fL Mean Corpuscular Hemoglobin 24.1 pg Mean Corpuscular Hemoglobin Concent 31.6 g/dl RDW Standard Deviation 49.7 fL RDW Coefficient of Variation 17.8 % Platelet Count 509 K/uL Mean Platelet Volume 12.4 fL Nucleated RBC Absolute Count (auto) 0.03 K/uL Nucleated Red Blood Cells % 0.2 % Sodium Level 139 mmol/L Potassium Level 4.0 mmol/L Chloride Level 108 mmol/L Carbon Dioxide Level 24 mmol/L Anion Gap 7.0 mmol/L Blood Urea Nitrogen 15 mg/dl Creatinine 0.83 mg/dl Est Creatinine Clear Calc Drug Dose 57.0 ml/min Estimated GFR () 82.2 Estimated GFR (Non- 70.9 BUN/Creatinine Ratio 17.9 Random Glucose 109 mg/dl Estimated Average Glucose 146 mg/dl Hemoglobin A1c 6.7 % Calcium Level 8.6 mg/dl Triglycerides Level 186 mg/dl Cholesterol Level 147 mg/dl HDL Cholesterol 32 mg/dl LDL Cholesterol, Calculated 78 mg/dl VLDL Cholesterol, Calculated 37 mg/dl Cholesterol/HDL Ratio 4.6 Assessment & Plan CHEST PAIN Presented with chest heaviness and discomfort radiating to left jaw has been doing upper body work out with certified personal trainer Risk factors includes: Family history of coronary artery disease/hypertension/ type 2 diabetes Need to R/O ACS Cardiac markers 3 negative Cardiology on board Plan to have dobutamine stress test ECHO * The left ventricle is normal in size. * There is moderate concentric left ventricular hypertrophy. * Ejection Fraction = 60-65%. * The left ventricular wall motion is normal. * Grade I diastolic dysfunction, (abnormal relaxation pattern). * The right ventricular systolic function is normal. * The left atrium is moderately dilated. * The right atrium is mildly dilated. * There is mild mitral regurgitation. * There is trace tricuspid regurgitation. Dobutamine STRESS STUDY: Normal pharmacologic stress echocardiogram. No echocardiographic or ECG evidence of myocardial ischemia having achieved heart rate adequate for diagnostic purposes. LEUKOCYTOSIS/ELEVATED HEMOGLOBIN HEMATOCRIT/THROMBOCYTOSIS Possible due to dehydration? Has been participate in exercise activity/ work out with certified personal trainer at [employer] Denies any fever and chills CXR showed no definite acute cardiopulmonary findings. WBC improved from 14K to 12K Received IV fluid Stable HYPERTENSION BP stable Continue home BP med HYPERLIPIDEMIA Chol 147, LDL 78 HDL 32 LDL at goal Continue statin TYPE 2 DIABETES Hold metformin Insulin sliding scale CODE STATUS: Full code DVT PROPHYLAXIS: Subq heparin DISPOSITION Possible discharge home when stable by cardiology Current Inpatient Medications: Current Inpatient Medications Medications (Trade) Dose Ordered Sig/B[place]son Route Start Time Stop Time Status Last Admin Dose Admin Heparin Sodium (Porcine) (Heparin Sq 5000 Unit/0.5ml) 5,000 unit Q8 SQ 05/19/17 22:00 06/18/17 21:59 05/19/17 20:20 5,000 UNIT Acetaminophen (Tylenol Tab) 650 mg Q4H PRN PO 05/19/17 12:30 06/18/17 12:29 Al Hydrox/Mg Hydrox/Simethicone (Maalox Max Susp) 15 ml Q4H PRN PO 05/19/17 12:30 06/18/17 12:29 Magnesium Hydroxide (Milk Of Magnesia Susp) 30 ml Q12H PRN PO 05/19/17 12:30 06/18/17 12:29 Ondansetron HCl (Zofran Inj) 4 mg Q6H PRN IV 05/19/17 12:30 06/18/17 12:29 Nitroglycerin (Nitrostat Tab) 0.4 mg UD PRN SL 05/19/17 12:30 06/18/17 12:29 Aspirin (Ecotrin Tab) 81 mg QAM PO 05/20/17 09:00 06/19/17 08:59 Polyethylene (Miralax Powder Packet) 17 gm DAILY PRN PO 05/19/17 12:30 06/18/17 12:29 Atorvastatin Calcium (Lipitor Tab) 20 mg QAM PO 05/20/17 09:00 06/19/17 08:59 Cholecalciferol (Vitamin D Tab) 1,000 inter.unit DAILY PO 05/20/17 09:00 06/19/17 08:59 Diclofenac Sodium (Voltaren 1% Top Gel) 1 appln QID EXT 05/19/17 17:00 06/18/17 16:59 Fish Oil ([place]-3 (Purified Fish Oil) Cap) 1 gm QAM PO 05/20/17 09:00 06/19/17 08:59 Lisinopril (Zestril Tab) 10 mg QAM PO 05/20/17 09:00 06/19/17 08:59 Magnesium Oxide (Mag-Ox Tab) 400 mg DAILY PO 05/20/17 09:00 06/19/17 08:59 Albuterol (Ventolin Hfa Inhaler) 2 puffs Q4H PRN INH 05/19/17 12:45 06/18/17 12:44 Pantoprazole Sodium (Protonix Tab) 40 mg QAM PO 05/20/17 09:00 06/19/17 08:59 Glucose (Glucose 40% Gel) 15-30 GRAMS 15 GRAMS... UD PRN PO 05/19/17 12:45 06/18/17 12:44 Glucose (Glucose Chew Tab) 4-8 Tablets 4 Tabl... UD PRN PO 05/19/17 12:45 06/18/17 12:44 Dextrose (Dextrose 50% 50ML Syringe) 25-50ML OF 50% DW IV FOR... UD PRN IV 05/19/17 12:45 06/18/17 12:44 Glucagon (Glucagon Inj) 1 mg UD PRN SQ 05/19/17 12:45 06/18/17 12:44 Miscellaneous (Iv Fluids Completed) 1 ea PRN PRN N/A 05/19/17 15:15 05/19/18 15:14 Acetaminophen/ Aspirin/Caffeine (Excedrin) 1 tab Q12H PRN PO 05/19/17 19:15 06/18/17 19:14
[2017-05-20 11:58] VITALS: BP 123/80; PULSE 55; TEMP 36.6; O2SAT 93
[2017-05-20 12:00] VITALS: O2SAT 95
--- NOTE | 2017-05-20 14:20 | DOBUTAMINE ECHO ---
*NOTICE TO RECEIVING LIBERTARIAN AGENCY This information is strictly Confidential and protected under [place] law. [place] law prohibits you from making any further disclosure of this information unless further disclosure is expressly permitted by the written consent of the person to whom it pertains or is authorized by law. A general authorization for the release of medical or other information is not sufficient for this purpose. Hospital accepts no responsibility if the information is made available to any other person, INCLUDING THE PATIENT. Interpretation Summary * Name: JIE MCDERMOTT Study Date: 05/20/2017 10:18 AM BP: 153/83 mmHg * Patient Location: [facility]\S\N278\S\2 HR: 63 * : 1945 (M/d/yyyy) Gender: Female Height: 63 in * Age: 72 yrs Ethnicity: [place] Weight: 146 lb * Ordering Physician: Sally Randolph * Referring Physician: Self, Referred * Performed By: Rochelle Carey RDCS * * Reason For Study: Chest pain * BSA: 1.7 m2 * STRESS STUDY: Normal pharmacologic stress echocardiogram. No echocardiographic or ECG evidence of myocardial ischemia having achieved heart rate adequate for diagnostic purposes. * -- Conclusions -- * STRESS STUDY: Normal pharmacologic stress echocardiogram. No echocardiographic or ECG evidence of myocardial ischemia having achieved heart rate adequate for diagnostic purposes. Procedure Details * DOBUTAMINE ECHO, CPT#88694 Stress Parameters * Normal baseline electrocardiogram. * Stress ECG: No ST changes. No arrhythmias. * No arrhythmia were noted with stress. * The stress portion of this study was personally supervised by the undersigned interpreting physician. * Rest heart rate was '75' BPM. * Rest blood pressure was '153/83' * Maximum heart rate achieved was 131 bpm. * Maximum heart rate was 87 % of maximum age-predicted heart rate. * Maximum blood pressure was '165/85' * Maximum Dobutamine infusion rate was '40' mcg/kg/min. * Dobutamine infusion was terminated due to achieving target heart rate * A total of 5 mg of IV Metoprolol was administered to reverse Dobutamine-induced tachycardia. * The patient did not exhibit any symptoms during drug infusion.
--- NOTE | 2017-05-20 15:13 | Discharge Instructions ---
Discharge Instructions Date of Service May 20, 2017. Admission Reason for Admission: Chest Pain Discharge Discharge Diagnosis / Problem: Chest Pain Discharge Goals Goal(s): Decrease discomfort, Improve function, Improve disease control Activity Recommendations Activity Limitations: resume your previous activity (as tolerated) . Instructions / Follow-Up Instructions / Follow-Up Follow up with your primary care provider Dr. Davila on 05/26 @ 10:55 AM Check CBC in 1 week to monitor WBC Current Hospital Diet Patient's current hospital diet: AHA Diet (Heart Healthy), Diabetes Type 2 Diet Discharge Diet Recommended Diet: AHA Diet (Heart Healthy), Diabetes Type 2 Diet Pending Studies Studies pending at discharge: no Laboratory Results Hemoglobin A1c Test 05/20/17 06:22 Range/Units Estimated Average Glucose 146 mg/dl Hemoglobin A1c 6.7 H 4.5-5.6 % Lipid Panel Test 05/20/17 06:22 Range/Units Triglycerides Level 186 H 0-150 mg/dl Cholesterol Level 147 0-200 mg/dl HDL Cholesterol 32 mg/dl Cholesterol/HDL Ratio 4.6 LDL Cholesterol, Calculated 78 mg/dl Medical Emergencies . Who to Call and When: Medical Emergencies: If at any time you feel your situation is an emergency, please call 911 immediately. . Non-Emergent Contact Non-Emergency issues call your: Primary Care Provider Call Non-Emergent contact if: you have a fever, you have any medication questions . . "Provider Documentation" section prepared by Vladislav Chris. .
[2017-05-20 15:35] VITALS: BP 123/80; PULSE 55; TEMP 36.6; O2SAT 95
--- NOTE | 2017-05-24 08:30 | Discharge Summary ---
Discharge Summary Date of Service May 24, 2017. Discharge Summary Admission Date: May 19, 2017 at 12:30 Discharge Date: May 20, 2017 Discharge Disposition: Home Principal Diagnosis: CHEST PAIN Secondary Diagnoses/Problems: LEUKOCYTOSIS ELEVATED HEMOGLOBIN/HEMATOCRIT THROMBOCYTOSIS HYPERTENSION DYSLIPIDEMIA DM TYPE 2 Procedures: ECHO Interpretation Summary * Name: JIE MCDERMOTT Study Date: 05/20/2017 10:18 AM BP: 153/83 mmHg * Patient Location: [facility]\\S\\[facility]\\S\\2 HR: 63 * : 1945 (M/d/yyyy) Gender: Female Height: 63 in * Age: 72 yrs Ethnicity: PR Weight: 146 lb * Ordering Physician: Sally Randolph * Referring Physician: Self, Referred * Performed By: Rochelle Carey RDCS * * Reason For Study: Chest pain * BSA: 1.7 m2 * STRESS STUDY: Normal pharmacologic stress echocardiogram. No echocardiographic or ECG evidence of myocardial ischemia having achieved heart rate adequate for diagnostic purposes. * -- Conclusions -- * STRESS STUDY: Normal pharmacologic stress echocardiogram. No echocardiographic or ECG evidence of myocardial ischemia having achieved heart rate adequate for diagnostic purposes. Procedure Details * DOBUTAMINE ECHO, CPT#03725 Stress Parameters * Normal baseline electrocardiogram. * Stress ECG: No ST changes. No arrhythmias. * No arrhythmia were noted with stress. * The stress portion of this study was personally supervised by the undersigned interpreting physician. * Rest heart rate was '75' BPM. * Rest blood pressure was '153/83' * Maximum heart rate achieved was 131 bpm. * Maximum heart rate was 87 % of maximum age-predicted heart rate. * Maximum blood pressure was '165/85' * Maximum Dobutamine infusion rate was '40' mcg/kg/min. * Dobutamine infusion was terminated due to achieving target heart rate * A total of 5 mg of IV Metoprolol was administered to reverse Dobutamine- induced tachycardia. * The patient did not exhibit any symptoms during drug infusion. LEFT SHOULDER 3 VIEWS HISTORY: L shoulder pain COMPARISON: None. FINDINGS: There is no fracture or dislocation. Soft tissues are unremarkable. Mild AC joint arthrosis. There is also mild cartilage space narrowing within the glenohumeral joint consistent with degenerative change. The left clavicle is intact. The bones are osteopenic. IMPRESSION: No fractures. Mild degenerative changes. Electronically signed by: Bebo Dumont M.D. 05/19/2017 12:57 PM Dictated Date/Time: 05/19/2017 12:54 PM [~ rep ct add3]] CHEST ONE VIEW PORTABLE CLINICAL HISTORY: Chest pain. Left shoulder and jaw pressure. COMPARISON STUDY: Chest radiograph March 21, 2011. FINDINGS: Lung volumes are normal. There is no pneumothorax or pleural effusion. Cardiomediastinal silhouette is unremarkable. There is no consolidation. There may be several calcified left hilar lymph nodes. IMPRESSION: No definite acute cardiopulmonary findings. Electronically signed by: Kvng Navarro M.D. 05/19/2017 11:34 AM Dictated Date/Time: 05/19/2017 11:33 AM Medication Reconciliation Continued Medications: Acetaminophen-Caffeine (Excedrin Tension Headache) 1 Tab Tab 1 TAB PO DIRECTED Albuterol Sulfate (Proair Respiclick) 108 Mcg/Act Aer 2 PUFF INH Q4H PRN for Shortness of Breath Aspirin (Aspirin Chewable) 81 Mg Chew 81 MG PO QAM Atorvastatin (Lipitor) 20 Mg Tab 20 MG PO QAM, TAB Cholecalciferol (Vitamin D3) 1,000 Unit Tab 1000 UNITS PO DAILY for 90 Days, TAB 3 Refills Diclofenac Sodium (Topical) (Voltaren 1% Top Gel) 1 % Gel 2 GM TOP QID Fish Oil (Ambler-3) 1 Ea Cap 1 CAP PO QAM, CAP Lisinopril (Zestril) 10 Mg Tab 10 MG PO QAM, TAB Magnesium Oxide (Mag-Ox) 400 Mg Tab 400 MG PO DAILY, TAB Metformin Hcl (Glucophage Er) 750 Mg Tab 750 MG PO QAM, TAB Omeprazole (Prilosec) 20 Mg Cap 20 MG PO QAM, CAP Admission Information HPI (per Admitting provider): 72-year-old female with past medical history of hypertension, type 2 diabetes, presented to ER with complaint of chest heaviness, discomfort radiation to left jaw started this morning At baseline patient is very active, goes to gym , workout done last , had no complaint of chest pain/heaviness/shortness of breath with strenuous activity On Friday she had open house tour at [facility], went up and down multiple flights of stairs-did not had any symptoms No prior history of ME or coronary artery disease Positive family history of coronary artery disease including 1 brother who is 5 years younger had 2 stent placed Father had ME at age 68; This morning patient mentioned her initial sensation was almost similar to acid reflux, Which which eventually lead to chest heaviness At present does not have any numbness or discomfort on the left jaw Still having sensation of chest heaviness No hypoxia, no palpitation, no orthopnea No syncopal episode Physical Exam (per Admitting): General Appearance: no apparent distress Head: normocephalic, atraumatic Eyes: normal inspection, sclerae normal ENT: normal ENT inspection Neck: supple, no JVD Respiratory/Chest: chest non-tender, lungs clear, normal breath sounds, no respiratory distress Cardiovascular: regular rate, rhythm, no JVD, + pertinent finding ( Tenderness on palpation of) Abdomen/GI: normal bowel sounds, non tender, soft Extremities/Musculoskelatal: normal inspection, no calf tenderness, normal capillary refill, no pedal edema Neurologic/Psych: no motor/sensory deficits, alert, normal mood/affect, oriented x 3 Skin: normal color, warm/dry, no rash Lymphatic: no adenopathy Hospital Course CHEST PAIN Presented with chest heaviness and discomfort radiating to left jaw has been doing upper body work out with 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 * There is moderate concentric left ventricular hypertrophy. * Ejection Fraction = 60-65%. * The left ventricular wall motion is normal. * Grade I diastolic dysfunction, (abnormal relaxation pattern). * The right ventricular systolic function is normal. * The left atrium is moderately dilated. * The right atrium is mildly dilated. * There is mild mitral regurgitation. * There is trace tricuspid regurgitation. Dobutamine STRESS STUDY: Normal pharmacologic stress echocardiogram. No echocardiographic or ECG evidence of myocardial ischemia having achieved heart rate adequate for diagnostic purposes. LEUKOCYTOSIS/ELEVATED HEMOGLOBIN HEMATOCRIT/THROMBOCYTOSIS Possible due to dehydration? Has been participate in exercise activity/ work out with customer service officer at the Gym Denies any fever and chills CXR showed no definite acute cardiopulmonary findings. WBC improved from 14K to 12K Received IV fluid Stable HYPERTENSION BP stable Continue home BP med HYPERLIPIDEMIA Chol 147, LDL 78 HDL 32 LDL at goal Continue statin TYPE 2 DIABETES Hold metformin Insulin sliding scale CODE STATUS: Full code DVT PROPHYLAXIS: Subq heparin DISPOSITION Possible discharge home when stable by cardiology Total time spent on discharge = 35 MINUTES This includes examination of the patient, discharge planning, medication reconciliation, and communication with other providers. Discharge Instructions Discharge Instructions Date of Service May 20, 2017. Admission Reason for Admission: Chest Pain Discharge Discharge Diagnosis / Problem: Chest Pain Discharge Goals Goal(s): Decrease discomfort, Improve function, Improve disease control Activity Recommendations Activity Limitations: resume your previous activity (as tolerated) . Instructions / Follow-Up Instructions / Follow-Up Follow up with your primary care provider Dr. Davila on 05/26 @ 10:55 AM Check CBC in 1 week to monitor WBC Current Hospital Diet Patient's current hospital diet: AHA Diet (Heart Healthy), Diabetes Type 2 Diet Discharge Diet Recommended Diet: AHA Diet (Heart Healthy), Diabetes Type 2 Diet Pending Studies Studies pending at discharge: no Laboratory Results Hemoglobin A1c Test 05/20/17 06:22 Range/Units Estimated Average Glucose 146 mg/dl Hemoglobin A1c 6.7 H 4.5-5.6 % Lipid Panel Test 05/20/17 06:22 Range/Units Triglycerides Level 186 H 0-150 mg/dl Cholesterol Level 147 0-200 mg/dl HDL Cholesterol 32 mg/dl Cholesterol/HDL Ratio 4.6 LDL Cholesterol, Calculated 78 mg/dl Medical Emergencies . Who to Call and When: Medical Emergencies: If at any time you feel your situation is an emergency, please call 911 immediately. . Non-Emergent Contact Non-Emergency issues call your: Primary Care Provider Call Non-Emergent contact if: you have a fever, you have any medication questions . . "Provider Documentation" section prepared by Vladislav Chris. . Signed: Signed: The status of this report is Draft * If report status is Draft, the document has not been finalized by the responsible provider. Additional Copies To Jimy Davila D.O.
== END 2017-05-20 15:55 | disposition home or self-care (01) ==
LOC: C.EDB 10:29 → C.MED 12:30 → ENRESERV 13:05
PROVIDERS: ADMIT Hospitalist; ATTEND Internal Medicine
DX: R07.9 Chest pain, unspecified (principal); D72.829 Elevated white blood cell count, unspecified; D58.2 Other hemoglobinopathies; I10 Essential (primary) hypertension; E78.5 Hyperlipidemia, unspecified; E11.9 Type 2 diabetes mellitus without complications; Z79.82 Long term (current) use of aspirin; Z79.899 Other long term (current) drug therapy; Z86.718 Personal history of other venous thrombosis and embolism; Z85.828 Personal history of other malignant neoplasm of skin; Z98.890 Other specified postprocedural states; Z90.49 Acquired absence of other specified parts of digestive tract; Z87.891 Personal history of nicotine dependence; Z91.040 Latex allergy status; Z88.2 Allergy status to sulfonamides; Z88.5 Allergy status to narcotic agent; Z88.8 Allergy status to other drugs, medicaments and biological substances; Z82.49 Family history of ischemic heart disease and other diseases of the circulatory system

== ENCOUNTER 2024-04-13 12:26 | Inpatient (IN) ==
--- NOTE | 2024-04-13 12:31 | Emergency Department Note ---
Impression & Plan Intertrochanteric fracture of left femur, Fall, History of atrial fibrillation, Polycythemia vera, Leukocytosis ED Provider Note NAME: JIE MCDERMOTT AGE: 79 SEX: F : 1945 ARRIVES VIA: Ambulance INFORMANT: Patient, EMS report ED PROVIDER(S): Thang Hong MD CHIEF COMPLAINT: Fall, hip pain MEDICAL DECISION MAKING: Patient presents for the above. Primary and secondary surveys were completed. IV was established and blood work was obtained. The patient did have x-ray completed of the left hip and pelvis. Patient was ordered fentanyl IV 25 mcg as needed every hour. Patient also ordered a gram of IV Tylenol. Patient's blood work shows a white count of 22. This may be reactive. The patient denies any infectious symptoms. Hemoglobin is normal with thrombocytosis of 446. Patient does have a history of polycythemia. Per discussion with [facility] service the patient has had elevated white count since November rangin from 19-22,000. The patient's kidney function is unremarkable prerenal azotemia noted. Chest x-ray negative. I did speak the on-call orthopedist Dr. Argueta to make him aware of the hip fracture. I also did speak with Елена Kiran PA-C with Dr. Millard and the patient was admitted to the medicine service. Discussion w/ other healthcare providers: Dr. Argueta orthopedics GREGORY Garvin Dr. inpatient medicine service Prior /Outside records reviewed: I reviewed part of a [facility] office visit with cardiology in [place] with Tessy Khoury PA-C. Patient with a known history of A-fib moderate MR hypertension type 2 diabetes DVT breast cancer HLD pulmonary hypertension polycythemia the Viagra checked mutation positive on hydroxyurea. This was from May 15, 2023. Per review of medication list is on Eliquis 5 twice daily. Differential diagnosis: Fracture, dislocation, contusion, strain, sprain, ICH, hemothorax, intra- abdominal injury, anemia among other causes were considered. Diagnostics, as interpreted by me: ECG: Normal sinus rhythm, rate of 67, normal intervals, normal axis no obvious ST elevations, T wave inversion with possible depression inferiorly. Cardiac monitoring: An order was placed for continuous cardiac monitoring. The monitor shows a rate of 67 with sinus rhythm. Patient was placed on pulse oximetry Medical decision rules: Wallace head CT rule, Nexus rule Imaging studies: I informally interpreted the patient's left hip x-ray shows intertrochanteric fracture with formal report to follow. HPI: Patient presents due to concern for fall that occurred just prior to arrival. The patient reports that she was trying to pull on a door and the door was locked. This caused her hand slipped and then she fell backward into some bushes on her buttocks. The patient does complain primarily of left-sided hip pain. Patient does take Eliquis for known history of A-fib. The patient states that she last took this this morning. Patient did receive 100 mcg of fentanyl en route via EMS. The patient did feel improved with that but does have pain with trying to move her left leg. Patient denies any numbness or tingling. The patient denies any head strike or LOC. Patient denies any head neck chest back or abdominal pain. The patient denies any upper extremity or right lower extremity pain. PAST MEDICAL HISTORY: See Below PAST SURGICAL HISTORY: See Below SOCIAL HISTORY: See Below HOME MEDICATIONS: See Below ALLERGIES: See Below VITALS: See Below PHYSICAL EXAMINATION: GENERAL: NAD, non-toxic. EYE EXAM: Normal conjunctiva. PERRL, no anisocoria and EOM's grossly intact w/o pain. Head: Normocephalic atraumatic. OROPHARYNX: Moist mucus membranes, grossly normal dentition. NECK: Trachea midline, no stridor. Supple, no nuchal rigidity, no adenopathy, non-tender. No signs of meningismus. FROM of the neck with good chin to chest and neck extension. No midline C-spine TTP. Chest: No reproducible anterior or sternal rib pain. LUNGS: Clear to auscultation. Normal chest wall mechanics. HEART: NSR, no MRG. ABDOMEN: Abdomen soft, non-tender, no masses, no rebound or guarding. BACK: No CVA TTP. No reproducible thoracic or lumbar TTP. SKIN: No rashes and no bruising. UPPER EXTREMITIES: Upper extremities are grossly normal. No TTP or deformity. LOWER EXTREMITIES: Pain to palpation over the left hip, decreased range of motion secondary to pain, neurovascular intact distally with good flexion extension of the ankle and able to move toes. No sensory deficits. Compartments are soft. NEURO EXAM: A&O x3, cranial nerves II-XII grossly intact, normal speech, moves all 4 extremities. Past Med/Surg History Problem List (Updated 04/13/24 @ 19:29 by Thang Hong MD) Leukocytosis (Acute) Polycythemia vera (Acute) History of atrial fibrillation (Acute) Fall (Acute) Fall Intertrochanteric fracture of left femur (Acute) Endometrial mass Bladder carcinoma TURBT- 06/2022 [place] Mass of bladder Bladder tumor Malignant neoplasm of upper-outer quadrant of right breast in female, 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 surgery + radiation >no limb restriction TMJ (temporomandibular joint disorder) hx locking History of migraine History of DVT (deep vein thrombosis) LLE following travel Hearing deficit BL LAW Hypertension Dyslipidemia Surgical History History of cystoscopy bladder biopsy, fulguration>09/2022 [place] History of dilatation and curettage endometrial fibroid removed History of hysteroscopy uterine fibroid removed History of transurethral resection of bladder tumor (TURBT) 06/11/2223 Grade 1 view, MAC 3, ETT 7. History of breast biopsy History of foot surgery Rt x 2 History of colonoscopy History of lumpectomy of right breast History of cataract surgery rt/left Status post blepharoplasty of both eyes History of facelift Hx laparoscopic cholecystectomy History of arthroplasty of left knee Family History Mother , 89yo;Oxygen dependent;"bowel leak", HTN No problems noted. Father , 68yo;smoker, [place], poor circulation No problems noted. Brother No problems noted. Son No problems noted. Daughter No problems noted. Other No family history of adverse response to anesthesia Social History Smoking Status: Never smoker Tobacco Type: Cigarettes Second Hand Exposure: Yes (as a child); Do You Dip or Chew Tobacco: No; Hx Alcohol Use: No Preferred Language: Colombian Communication Ability: Effective Visual Impairment: No Limitations Hearing Ability: Hard of Hearing Philosophy Lecturer Required: No Beliefs That Will Affect Care: None Current Living Situation: Spouse Current Living Situation Comment: [facility] Feels Safe at Home: Yes Assistive Devices: Cane and Hearing Aid - Bilateral Allergies Allergies Allergy/AdvReac Type Severity Reaction Status Date / Time adhesive tape Allergy Intermediate Hives Verified 07/18/23 09:28 Iodinated Contrast Media Allergy Intermediate HIVES TO Verified 07/18/23 09:28 RADIO OPAQUE CONTRAST iodine Allergy Intermediate HIVES- Verified 07/18/23 09:28 ALSO SEAFOOD-HIVES latex Allergy Intermediate HIVES Verified 07/18/23 09:28 morphine Allergy Intermediate hives Verified 07/18/23 09:28 hydrocodone AdvReac Mild BAD TASTE Verified 07/18/23 09:28 IN MOUTH lactose AdvReac Mild INTOLERANT Verified 07/18/23 09:28 sulindac [From Clinoril] AdvReac Mild "Out of Verified 07/18/23 09:28 body experience" Iothalamate Allergy Intermediate HIVES Uncoded 07/18/23 09:28 Home Meds Home Medications Medication Instructions Recorded Confirmed atorvastatin 20 mg tablet 20 mg PO QAM 06/06/22 04/13/24 calcium 600 mg (as 1 tab PO BID 06/06/22 04/13/24 carbonate)-vitamin D3 5 mcg (200 unit) tablet cyanocobalamin (vitamin B-12) 500 500 mcg PO QAM 06/06/22 04/13/24 mcg tablet (Vitamin B-12) hydroxyurea 500 mg capsule 500 mg PO QAM 06/06/22 04/13/24 magnesium 500 mg tablet 500 mg PO QAM 06/06/22 04/13/24 metformin 500 mg tablet 500 mg PO QAM 06/06/22 04/13/24 gabapentin 300 mg capsule 300 mg PO TID 07/30/22 04/13/24 acetaminophen 650 mg 650 mg PO TID 09/20/22 04/13/24 tablet,extended release apixaban 5 mg tablet (Eliquis) 5 mg PO BID 09/20/22 04/13/24 fexofenadine 180 mg tablet 180 mg PO DAILY PRN Allergy 07/02/23 04/13/24 Symptoms fluticasone propionate 50 1 spray intranasal BID PRN 07/02/23 04/13/24 mcg/actuation nasal Congestion spray,suspension furosemide 20 mg tablet 40 mg PO QAM 07/02/23 04/13/24 hydroxyzine HCl 10 mg tablet 10 mg PO QID PRN Itching 07/02/23 04/13/24 olmesartan 5 mg tablet (Benicar) 5 mg PO QAM 07/02/23 04/13/24 omeprazole 20 mg capsule,delayed 20 mg PO QA 07/02/23 04/13/24 release Results & Data (ED) Vital Signs Vital Signs - 24 hr 04/13/24 12:34 04/13/24 13:43 04/13/24 14:23 Temperature 36.5 C Temperature Source Oral Pulse Rate 78 60 Pulse Rate [Apical] 67 Respiratory Rate 22 25 H Respiratory Effort / Characteristics Non-Labored Spontaneous Non-Labored Spontaneous Respiratory Depth Normal Normal Blood Pressure 165/74 H Blood Pressure [Right Arm] 150/88 H Blood Pressure Mean 104 Blood Pressure Mean [Right Arm] 108 Blood Pressure Position Semi-fowlers Blood Pressure Position [Right Arm] Semi-fowlers Pulse Oximetry 97 100 Oxygen Delivery Method Room Air Nasal Cannula Oxygen Flow Rate 2 Sepsis Recent Fever Within 48 Hours No Sepsis New/Unexplained Change in Mental Status N/A Sepsis Action Taken by Nursing No Action Required Home Medications Current Medication List: was personally reviewed by me Laboratory Data Attestation: I reviewed the patient's lab results. 04/13/24 13:53 04/13/24 13:53 Lab Results 04/13/24 04/13/24 Range/Units 13:53 13:55 WBC 22.92 H (4.8-10.8) K/ul RBC 4.33 (4.20-5.40) M/uL Hgb 13.5 (12.0-16.0) g/dl Hct 43.8 (37.0-47.0) % MCV 101.2 H (80.0-100.0) fL MCH 31.2 (25.0-34.0) pg MCHC 30.8 L (32.0-36.0) g/dL RDW Std Deviation 55.9 H (36.4-46.3) fL RDW Coeff of Ahsan 15.0 H (11.5-14.5) % Plt Count 446 H (130-400) K/uL MPV 13.1 H (9.4-12.4) fL Immature Gran % (Auto) 0.9 % Neut % (Auto) 88.2 % Lymph % (Auto) 5.5 % [place] % (Auto) 2.6 % Eos % (Auto) 1.8 % Baso % (Auto) 1.0 % Neut # (Auto) 20.23 H (1.40-6.50) K/uL Lymph # (Auto) 1.26 (1.20-3.40) K/uL [place] # (Auto) 0.59 (0.11-0.59) K/uL Eos # (Auto) 0.41 (0.00-0.50) K/uL Baso # (Auto) 0.22 H (0.00-0.20) K/uL Immature Gran # (Auto) 0.21 H (0.01-0.20) K/uL Giant Platelets 1+ Polychromasia 1+ Tear Drop Cells 1+ Ovalocytes 1+ PT 11.7 (9.0-12.0) Seconds INR 1.1 (0.9-1.1) APTT 33 H (21-31) Seconds PTT Ratio 1.2 Sodium 138 (136-145) mmol/L Potassium 4.6 (3.5-5.1) mmol/L Chloride 101 (98-107) mmol/L Carbon Dioxide 29 (21-32) mmol/L Anion Gap 8 (3-11) BUN 24 H (6-23) mg/dl Creatinine 0.94 (0.6-1.2) mg/dl Est Cr Clr Drug Dosing 37.2 ml/min eGFR 62.11 BUN/Creatinine Ratio 25.5 H (10-20) Glucose 93 (70-99(Fasting)) mg/dl Calcium 10.1 (8.6-10.3) mg/dl Total Bilirubin 1.1 H (0.2-1.0) mg/dl AST 27 (13-39) U/L ALT 16 (7-52) U/L Alkaline Phosphatase 121 H (34-104) U/L Total Protein 7.3 (6.0-8.3) gm/dl Albumin 4.6 (3.4-5.0) gm/dl Globulin 2.7 (2.5-4.0) gm/dl Albumin/Globulin Ratio 1.7 (0.9-2) Blood Type B Positive Antibody Screen NEGATIVE Administered Medications Insulin Aspart (Insulin Aspart Per Unit Charge) 0 units SC ACHS HARRIET Stop: 04/13/24 23:00 Last Admin: 04/13/24 18:58 Dose: Not Given Documented By: YARIEL Co-signed By: DANIEL Oxycodone HCl (Oxycodone Hcl Ir 5 Mg Tab (Immediate Release)) 10 mg PO Q4H PRN PRN Reason: SEVERE Pain (7,8,9,10) Stop: 04/27/24 15:16 Last Admin: 04/13/24 15:48 Dose: 10 mg Documented By: YARIEL Discontinued Medications Fentanyl Citrate (Fentanyl Citrate Pf 100 Mcg/2 Ml Vial) 50 mcg IV Q1H PRN PRN Reason: Pain Stop: 04/27/24 12:38 Last Admin: 04/13/24 13:37 Dose: 50 mcg Documented By: SANYA Acetaminophen (Ofirmev) 1,000 mg in 100 mls @ 400 mls/hr IV NOW STA Stop: 04/13/24 12:53 Last Infusion: 04/13/24 13:36 Dose: Infused Documented By: Admin: 04/13/24 12:49 Dose: 400 mls/hr Documented By: MMF Imaging Data Radiologist's Impression: Chest X-Ray 04/13/24 00:00 XR chest 1V not portable CLINICAL HISTORY: HIP FX COMPARISON STUDY: None FINDINGS: There is mild cardiomegaly without pulmonary vascular congestion. There are mitral valvular calcifications. No effusion, consolidation, or pneumothorax. IMPRESSION: No acute findings. ACT 112: Negative or not required by law. Electronically signed by: Dre Campbell M.D. 04/13/2024 1:51 PM Hip/Pelvis X-Ray 04/13/24 12:39 XR hip LT 2V w pelvis CLINICAL HISTORY: pain post fall COMPARISON: None FINDINGS: There is an acute comminuted mildly displaced intertrochanteric fracture proximal left femur. No other fracture or dislocation seen. IMPRESSION: Acute fracture proximal left femur. ACT 112: Negative or not required by law. Electronically signed by: Dre Campbell M.D. 04/13/2024 1:44 PM Discharge Plan Visit Data Chief Complaint: Fall ED Provider: Thang Hong Discharge Problem: Intertrochanteric fracture of left femur, Fall, History of atrial fibrillation, Polycythemia vera, Leukocytosis Discharge Problem: Intertrochanteric fracture of left femur Qualifiers: Encounter type: initial encounter Fracture type: closed Fracture alignment: d isplaced Qualified Code(s): S72.142A - Displaced intertrochanteric fracture of left femur, initial encounter for closed fracture Fall Qualifiers: Encounter type: initial encounter Qualified Code(s): W19.XXXA - Unspecified fall, initial encounter Leukocytosis Qualifiers: Leukocytosis type: unspecified Qualified Code(s): D72.829 - Elevated white blood cell count, unspecified
[2024-04-13] MEDS: ACETAMINOPHEN 1,000 MG/100 ML VIAL IV STA (12:49)
[2024-04-13] MEDS: fentaNYL citrate PF 100 MCG/2 ML VIAL IV PRN (13:37)
--- NOTE | 2024-04-13 13:45 | XRay Report ---
XR hip LT 2V w pelvis CLINICAL HISTORY: pain post fall COMPARISON: None FINDINGS: There is an acute comminuted mildly displaced intertrochanteric fracture proximal left fem ur. No other fracture or dislocation seen. IMPRESSION: Acute fracture proximal left femur. ACT 112: Negative or not required by law. Electronically signed by: Dre Campbell M.D. 04/13/2024 1:44 PM
--- NOTE | 2024-04-13 13:52 | XRay Report ---
XR chest 1V not portable CLINICAL HISTORY: HIP FX COMPARISON STUDY: None FINDINGS: There is mild cardiomegaly without pulmonary vascular congestion. There are mitral valvular calcifications. No effusion, consolidation, or pneumothorax. IMPRESSION: No acute findings. ACT 112: Negative or not required by law. Electronically signed by: Dre Campbell M.D. 04/13/2024 1:51 PM
[2024-04-13 14:26] LABS: Albumin Globulin Ratio 1.7 (0.9-2); Albumin Level 4.6 gm/dl (3.4-5.0); BUN Creatinine Ratio 25.5 (10-20); Bilirubin,Total 1.1 mg/dl (0.2-1.0); Calcium 10.1 mg/dl (8.6-10.3); Creatinine Clr Calc Pharmacy 37.2 ml/min; Globulin 2.7 gm/dl (2.5-4.0); Potassium 4.6 mmol/L (3.5-5.1); Total Protein 7.3 gm/dl (6.0-8.3)
[2024-04-13 14:28] LABS: Hematocrit (blood only) 43.8 % (37.0-47.0); Hemoglobin 13.5 g/dl (12.0-16.0); Mean Corpuscular Hemoglobin 31.2 pg (25.0-34.0); Mean Corpuscular Hgb Conc 30.8 g/dL (32.0-36.0); Mean Corpuscular Volume 101.2 fL (80.0-100.0); Mean Platelet Volume 13.1 fL (9.4-12.4); Platelet Count 446 K/uL (130-400); RDW Standard Deviation 55.9 fL (36.4-46.3); Red Blood Count 4.33 M/uL (4.20-5.40)
--- NOTE | 2024-04-13 14:28 | History & Physical Report ---
<Statement entered by Santino Lai, - 04/13/24 18:23> I have seen and examined the patient and have discussed the case with the advance practice provider. I have reviewed the advanced practitioner's documentation, and I agree with, and take responsibility for that plan of care. Patient evaluated while still in ED. Family at bedside. She reports that her pain is better controlled after receiving treatment. Reviewed plans for holding Eliquis, Kcentra just prior to surgery and discussed with KIRAN. Further plans of care as outlined below I spent a total of 16 minutes coordinating, documenting, and providing care for this patient excluding time spent by another provider/QHP. Date of Service April 13, 2024 Assessment & Plan (1) Fall: (2) Intertrochanteric fracture of left femur: (3) Bladder carcinoma: (4) Diabetes mellitus, type 2: (5) Paroxysmal atrial fibrillation: (6) Dyslipidemia: (7) Hypertension: (8) Polycythemia vera: Plan This is a 79-year-old female with PMH of type 2 diabetes, dyslipidemia, hypertension, paroxysmal atrial fibrillation on anticoagulation, HFpEF, history of bladder cancer (s/p TURBT in 07/02 at [facility]), thrombocytosis, polycythemia vera, history of breast cancer, remote history of DVT, JAK2 gene mutation and other medical problems listed below who presents from home after a fall and was found to have acute fracture proximal left femur. Fall Acute fracture of proximal left femur L hip/pelvis XR showing acute displaced fracture of proximal left femur CXR without acute findings, EKG with NSR RCRI score 0 points or 3.9% risk of major cardiac event Care coordinated with Dr. Argueta of orthopedic surgery - planning for long trochanteric femoral nail in OR tomorrow Discussed case with Dr. Griffin, who recommends K centra to be given in AM. Dr. Argueta updated Hold Eliquis (last taken 0900 on 04/13) Pain control with scheduled Tylenol, PRN oxycodone Pre-op abx, singh, SCDs, anesthesia consulted per hip fracture protocol Paroxysmal atrial fibrillation Not on rate/rhythm medications Hold Eliquis (last taken this AM at 0900) Admitting EKG with normal sinus rhythm DM II A1c 6.3 Hold metformin SSI while in-patient BSG AC HS HTN Normotensive. Hold olmesartan preoperatively Leukocytosis WBC 22.92K (consistent with baseline WBC 19-22K since November) Monitor with daily CBC Polycythemia vera Follows with Dr. Stinson Hct 41.1 (phlebotomy considered for hct >45) Continue hydroxyurea Macrocytic anemia MCV 101.[address] Stinson's notes likely multifactorial in setting of bladder cancer, tx of bladder ca Thrombocytosis Plt 446 (baseline ~400) Recent sinusitis Symptoms resolving, on 10 day course of Cefdinir, EOT 04/15 Bladder carcinoma Last TURBT with positive pathology was 07/15/2023 Underwent induction BCG and finished this on 09/23/2023, deciding whether or not she wants to pursue maintenance BCG therapy or not, following with Dr. Randolph of urology DVT Ppx: SCDs for now, plan to resume Eliquis post-operatively Code status: FULL PCP: Prateek Dispo: Admitting to med/surg Patient seen in collaboration with Dr. Lai. Please see addendum. I spent a total of 75 minutes coordinating, documenting, and providing care for this patient excluding time spent in the performance of separately billed services or time spent by another provider/QHP. History of Present Illness Chief Complaint: Fall Primary Care Provider: Roby Chandra MD This is a 79-year-old female with PMH of type 2 diabetes, dyslipidemia, hypertension, paroxysmal atrial fibrillation on anticoagulation, HFpEF, history of bladder cancer (s/p TURBT in 07/02 at [facility]), thrombocytosis, polycythemia vera, history of breast cancer, remote history of DVT, JAK2 gene mutation and other medical problems listed below who presents from home after a fall. Patient was walking up an incline towards an office building for an appointment and when she pulled on the door of the building, her fingers slipped and she fell backwards, falling onto her left side. Denies any head trauma. Had immediate pain of the left hip following event. Was brought to ED for further evaluation. Currently still experiencing 9/10 pain of left upper leg/hip. Denies any pares thesias or numbness of lower left extremity. No lightheadedness, chest pain, palpitations, shortness of breath, nausea, vomiting, abdominal pain, dysuria, diarrhea or constipation. Has been on cefdinir course for jaw pain/sinusitis with EOT 04/15. Allergies Allergy/AdvReac Type Severity Reaction Status Date / Time adhesive tape Allergy Intermediate Hives Verified 07/18/23 09:28 Iodinated Contrast Media Allergy Intermediate HIVES TO Verified 07/18/23 09:28 RADIO OPAQUE CONTRAST iodine Allergy Intermediate HIVES- Verified 07/18/23 09:28 ALSO SEAFOOD-HIVES latex Allergy Intermediate HIVES Verified 07/18/23 09:28 morphine Allergy Intermediate hives Verified 07/18/23 09:28 hydrocodone AdvReac Mild BAD TASTE Verified 07/18/23 09:28 IN MOUTH lactose AdvReac Mild INTOLERANT Verified 07/18/23 09:28 sulindac [From Clinoril] AdvReac Mild "Out of Verified 07/18/23 09:28 body experience" Iothalamate Allergy Intermediate HIVES Uncoded 07/18/23 09:28 Home Medications Medication Instructions Recorded Confirmed Type atorvastatin 20 mg tablet 20 mg PO QAM 06/06/22 04/13/24 History calcium 600 mg (as 1 tab PO BID 06/06/22 04/13/24 History carbonate)-vitamin D3 5 mcg (200 unit) tablet cyanocobalamin (vitamin B-12) 500 500 mcg PO QAM 06/06/22 04/13/24 History mcg tablet (Vitamin B-12) hydroxyurea 500 mg capsule 500 mg PO QAM 06/06/22 04/13/24 History magnesium 500 mg tablet 500 mg PO QAM 06/06/22 04/13/24 History metformin 500 mg tablet 500 mg PO QAM 06/06/22 04/13/24 History gabapentin 300 mg capsule 300 mg PO TID 07/30/22 04/13/24 History acetaminophen 650 mg 650 mg PO TID 09/20/22 04/13/24 History tablet,extended release apixaban 5 mg tablet (Eliquis) 5 mg PO BID 09/20/22 04/13/24 History fexofenadine 180 mg tablet 180 mg PO DAILY PRN Allergy 07/02/23 04/13/24 History Symptoms fluticasone propionate 50 1 spray intranasal BID PRN 07/02/23 04/13/24 History mcg/actuation nasal Congestion spray,suspension furosemide 20 mg tablet 40 mg PO QAM 07/02/23 04/13/24 History hydroxyzine HCl 10 mg tablet 10 mg PO QID PRN Itching 07/02/23 04/13/24 History olmesartan 5 mg tablet (Benicar) 5 mg PO QAM 07/02/23 04/13/24 History omeprazole 20 mg capsule,delayed 20 mg PO QAM 07/02/23 04/13/24 History release Past Med/Surg History Problem List (Updated 04/13/24 @ 16:53 by Елена Kiran PA-C) Fall Intertrochanteric fracture of left femur Endometrial mass Bladder carcinoma [place]URBT- 06/2022 [place] Mass of bladder Bladder tumor Malignant neoplasm of upper-outer quadrant of right breast in female, estrogen receptor positive (Chronic 08/28/17) Chest pain Medical History (Updated 04/13/24 @ 16:53 by Елена Kiran PA-C) Paroxysmal atrial fibrillation Bladder cancer Diabetes mellitus, type 2 Seasonal allergies Polycythemia vera GERD (gastroesophageal reflux disease) History of breast cancer Rt breast 2018. surgery + radiation >no limb restriction TMJ (temporomandibular joint disorder) hx locking History of migraine History of DVT (deep vein thrombosis) LLE following travel Hearing deficit BL LAW Hypertension Dyslipidemia Surgical History History of cystoscopy bladder biopsy, fulguration>09/2022 [place] History of dilatation and curettage endometrial fibroid removed History of hysteroscopy uterine fibroid removed History of transurethral resection of bladder tumor (TURBT) 06/11/2223 Grade 1 view, MAC 3, ETT 7. History of breast biopsy History of foot surgery Rt x 2 History of colonoscopy History of lumpectomy of right breast History of cataract surgery rt/left Status post blepharoplasty of both eyes History of facelift Hx laparoscopic cholecystectomy History of arthroplasty of left knee Family History Mother , 89yo;Oxygen dependent;"bowel leak", HTN No problems noted. Father , 68yo;smoker, [place], poor circulation No problems noted. Brother No problems noted. Son No problems noted. Daughter No problems noted. Other No family history of adverse response to anesthesia Social History Smoking Status: Never smoker Tobacco Type: Cigarettes Second Hand Exposure: Yes (as a child); Do You Dip or Chew Tobacco: No; Hx Alcohol Use: No Preferred Language: Faroese Communication Ability: Effective Visual Impairment: No Limitations Hearing Ability: Hard of Hearing Trench Pipe Layer Required: No Beliefs That Will Affect Care: None Current Living Situation: Spouse Current Living Situation Comment: [facility] Feels Safe at Home: Yes Assistive Devices: Cane and Hearing Aid - Bilateral Review of Systems Review of Systems: At least ten systems reviewed and negative except as noted in the HPI. Physical Exam Physical Exam: General Appearance: WD/WN, vitals as above, NAD, elderly female, pleasant Head: normocephalic, atraumatic Eyes: normal inspection, PERRL, conjunctivae normal, anicteric sclerae ENT: external ear and nose normal, oropharynx normal Neck: normal visual inspection Respiratory: normal respiratory effort, lungs clear to auscultation, no wheeze, rales, rhonchi. No accessory muscle use Cardiovascular: regular rate, rhythm, normal peripheral pulses, no BLE edema Chest: normal inspection of chest Abdomen/GI: normal bowel sounds, soft, nontender, no hepatosplenomegaly Extremities/Musculoskeletal: + LLE shortened and externally rotated. TTP proximal L thigh. No cyanosis or clubbing, extremities motor strength 5/5 Neurologic: PERRL, EOMI, accommodation nl, no face palsy, no dysarthria, CN's II-XI intact bilaterally and moves all extremities Psychiatric: A+Ox3, euthymic affect Skin: no rashes, normal color, warm/dry Results & Data Results & Data Vital Signs (Past 12 Hours) Vital Signs Temp Pulse Resp BP Pulse Ox O2 Del Method 04/13/24 13:43 60 04/13/24 12:34 36.5 C 78 22 165/74 H 97 Room Air Laboratory Results Short CBC 04/13/24 Range/Units 13:53 WBC 22.92 H (4.8-10.8) K/ul Hgb 13.5 (12.0-16.0) g/dl Hct 43.8 (37.0-47.0) % Plt Count 446 H (130-400) K/uL BMP 04/13/24 13:53 Sodium 138 Potassium 4.6 Chloride 101 Carbon Dioxide 29 BUN 24 H Creatinine 0.94 Glucose 93 Calcium 10.1 Liver Function 04/13/24 Range/Units 13:53 Total Bilirubin 1.1 H (0.2-1.0) mg/dl AST 27 (13-39) U/L ALT 16 (7-52) U/L Alkaline Phosphatase 121 H (34-104) U/L Albumin 4.6 (3.4-5.0) gm/dl Diagnostic Findings Chest X-Ray 04/13/24 00:00 XR chest 1V not portable CLINICAL HISTORY: HIP FX COMPARISON STUDY: None FINDINGS: There is mild cardiomegaly without pulmonary vascular congestion. There are mitral valvular calcifications. No effusion, consolidation, or pneumothorax. IMPRESSION: No acute findings. ACT 112: Negative or not required by law. Electronically signed by: Dre Campbell M.D. 04/13/2024 1:51 PM Hip/Pelvis X-Ray 04/13/24 12:39 XR hip LT 2V w pelvis CLINICAL HISTORY: pain post fall COMPARISON: None FINDINGS: There is an acute comminuted mildly displaced intertrochanteric fracture proximal left femur. No other fracture or dislocation seen. IMPRESSION: Acute fracture proximal left femur. ACT 112: Negative or not required by law. Electronically signed by: Dre Campbell M.D. 04/13/2024 1:44 PM
[2024-04-13 14:36] LABS: INR 1.1 (0.9-1.1); Partial Thromboplastin Ratio 1.2; Partial Thromboplastin Time 33 Seconds (21-31); Prothrombin Time 11.7 Seconds (9.0-12.0)
[2024-04-13 14:41] LABS: Basophils # (auto) 0.22 K/uL (0.00-0.20); Eosinophils # (auto) 0.41 K/uL (0.00-0.50); Eosinophils % (auto) 1.8 %; Giant Platelets 1+; Immature Granulocytes # (auto) 0.21 K/uL (0.01-0.20); Immature Granulocytes % (auto) 0.9 %; Lymphocytes # (auto) 1.26 K/uL (1.20-3.40); Lymphocytes % (auto) 5.5 %; Monocytes # (auto) 0.59 K/uL (0.11-0.59); Monocytes % (auto) 2.6 %; Neutrophils # (auto) 20.23 K/uL (1.40-6.50); Neutrophils % (auto) 88.2 %; Ovalocytes 1+; Polychromasia 1+; Tear Drop Cells 1+; White Blood Count 22.92 K/ul (4.8-10.8)
[2024-04-13] MEDS ORDERED: ONDANSETRON INJ 2 MG/ML 2 ML VIAL IV PRN (15:17)
[2024-04-13] MEDS ORDERED: bisacodyL 10 MG SUPP PR PRN (15:17)
[2024-04-13] MEDS ORDERED: MELATONIN 3 MG TAB PO PRN (15:17)
[2024-04-13] MEDS ORDERED: MAGNESIUM HYDROXIDE SUSP 30 ML UDC PO PRN (15:17)
[2024-04-13] MEDS ORDERED: NALOXONE HCL 0.4 MG/1 ML VIAL/CARP IV PRN (15:17)
[2024-04-13] MEDS ORDERED: ALUMINUM/MAGNESIUM SUSP 30 ML UDC PO PRN (15:17)
[2024-04-13] MEDS ORDERED: POLYETHYLENE (MIRALAX) 17 GM PACK PO PRN (15:17)
[2024-04-13] MEDS: oxyCODONE HCL IR 5 MG TAB (IMMEDIATE RELEASE) PO PRN (15:48)
--- NOTE | 2024-04-13 16:04 | Orthopedic Consultation ---
Date of Consultation April 13, 2024 Assessment & Plan (1) Intertrochanteric fracture of left femur: Findings discussed with patient and daughter. She has a displaced left hip intertrochanteric fracture. Does not appear to be pathological given her history of cancer. We talked about nonoperative and operative treatment. I have recommended surgery and she agrees to proceed. The plan would be for a long trochanteric femoral nail. We talked about risks benefits rehab and recovery. An informed consent was obtained. Her labs are noted. Her x-ray shows a comminuted intertrochanteric fracture with shortening. There is no arthritis. The report is noted. She is on Eliquis 5 mg twice daily and took her last dose this morning. We may need to wait until morning to do her surgery. We will coordinate this with medicine and if necessary Dr. Lama loera. History of Present Illness Attending Physician: Santino Lai DO Allergies Allergy/AdvReac Type Severity Reaction Status Date / Time adhesive tape Allergy Intermediate Hives Verified 07/18/23 09:28 Iodinated Contrast Media Allergy Intermediate HIVES TO Verified 07/18/23 09:28 RADIO OPAQUE CONTRAST iodine Allergy Intermediate HIVES- Verified 07/18/23 09:28 ALSO SEAFOOD-HIVES latex Allergy Intermediate HIVES Verified 07/18/23 09:28 morphine Allergy Intermediate hives Verified 07/18/23 09:28 hydrocodone AdvReac Mild BAD TASTE Verified 07/18/23 09:28 IN MOUTH lactose AdvReac Mild INTOLERANT Verified 07/18/23 09:28 sulindac [From Clinoril] AdvReac Mild "Out of Verified 07/18/23 09:28 body experience" Iothalamate Allergy Intermediate HIVES Uncoded 07/18/23 09:28 Home Medications Medication Instructions Recorded Confirmed Type atorvastatin 20 mg tablet 20 mg PO QAM 06/06/22 04/13/24 History calcium 600 mg (as 1 tab PO BID 06/06/22 04/13/24 History carbonate)-vitamin D3 5 mcg (200 unit) tablet cyanocobalamin (vitamin B-12) 500 500 mcg PO QAM 06/06/22 04/13/24 History mcg tablet (Vitamin B-12) hydroxyurea 500 mg capsule 500 mg PO QAM 06/06/22 04/13/24 History magnesium 500 mg tablet 500 mg PO QAM 06/06/22 04/13/24 History metformin 500 mg tablet 500 mg PO QAM 06/06/22 04/13/24 History gabapentin 300 mg capsule 300 mg PO TID 07/30/22 04/13/24 History acetaminophen 650 mg 650 mg PO TID 09/20/22 04/13/24 History tablet,extended release apixaban 5 mg tablet (Eliquis) 5 mg PO BID 09/20/22 04/13/24 History fexofenadine 180 mg tablet 180 mg PO DAILY PRN Allergy 07/02/23 04/13/24 History Symptoms fluticasone propionate 50 1 spray intranasal BID PRN 07/02/23 04/13/24 History mcg/actuation nasal Congestion spray,suspension furosemide 20 mg tablet 40 mg PO QAM 07/02/23 04/13/24 History hydroxyzine HCl 10 mg tablet 10 mg PO QID PRN Itching 07/02/23 04/13/24 History olmesartan 5 mg tablet (Benicar) 5 mg PO QAM 07/02/23 04/13/24 History omeprazole 20 mg capsule,delayed 20 mg PO QAM 07/02/23 04/13/24 History release Patient History Medical History Bladder cancer Diabetes mellitus, type 2 History of atrial fibrillation recent event occured 09/12/22 during colonoscopy>[facility] *reason for eliquis Seasonal allergies Polycythemia vera GERD (gastroesophageal reflux disease) History of breast cancer Rt breast 2017. surgery + radiation >no limb restriction TMJ (temporomandibular joint disorder) hx locking History of migraine History of DVT (deep vein thrombosis) LLE following travel Hearing deficit BL LAW Hypertension Dyslipidemia Surgical History History of cystoscopy bladder biopsy, fulguration>09/2022 [place] History of dilatation and curettage endometrial fibroid removed History of hysteroscopy uterine fibroid removed History of transurethral resection of bladder tumor (TURBT) 06/11/2223 Grade 1 view, MAC 3, ETT 7. History of breast biopsy History of foot surgery Rt x 2 History of colonoscopy History of lumpectomy of right breast History of cataract surgery rt/left Status post blepharoplasty of both eyes History of facelift Hx laparoscopic cholecystectomy History of arthroplasty of left knee Family History Mother , 89yo;Oxygen dependent;"bowel leak", HTN No problems noted. Father , 68yo;smoker, [place], poor circulation No problems noted. Brother No problems noted. Son No problems noted. Daughter No problems noted. Other No family history of adverse response to anesthesia Social History Smoking Status: Never smoker Tobacco Type: Cigarettes Second Hand Exposure: Yes (as a child); Do You Dip or Chew Tobacco: No; Hx Alcohol Use: No Preferred Language: Tajik Communication Ability: Effective Visual Impairment: No Limitations Hearing Ability: Hard of Hearing Assembler For Puller Over Hand Required: No Beliefs That Will Affect Care: None Current Living Situation: Spouse Current Living Situation Comment: [facility] Feels Safe at Home: Yes Assistive Devices: Cane and Hearing Aid - Bilateral Review of Systems Review of Systems: Her health history is noted and reviewed. She has diabetes and polycythemia vera. She is anticoagulated because of A-fib. She has also had breast and bladder cancer. She has not had a bleeding or blood clotting problem although her chart does list a history of DVT many years ago. She denies allergy to metals or nickel. She has not had a staph or a MRSA infection. Physical Exam Physical Exam: Her left leg is shortened and externally rotated. The foot leg knee and thigh are nontender. Any movement of the hip or palpation of the left hip elicits pain. She is awake and alert and oriented. She responds to questions appropriately. She reports intact sensation in the left foot. She has 5 out of 5 ankle and toe plantarflexion and dorsiflexion strength. DP pulses 1+ palpable PT pulse is nonpalpable but has positive Doppler signal. Results & Data Vital Signs (Past 12 Hours) Vital Signs Temp Pulse Pulse Resp BP BP Pulse Ox 04/13/24 15:15 80 18 143/71 H 97 04/13/24 14:23 67 25 H 150/88 H 100 04/13/24 13:43 60 04/13/24 12:34 36.5 C 78 22 165/74 H 97 O2 Del Method O2 Flow Rate 04/13/24 15:15 Room Air 04/13/24 14:23 Nasal Cannula 2 04/13/24 13:43 04/13/24 12:34 Room Air Laboratory Results Laboratory Results WBC 22.92 K/ul (4.8-10.8) H 04/13/24 13:53 RBC 4.33 M/uL (4.20-5.40) 04/13/24 13:53 Hgb 13.5 g/dl (12.0-16.0) 04/13/24 13:53 Hct 43.8 % (37.0-47.0) 04/13/24 13:53 MCV 101.2 fL (80.0-100.0) H 04/13/24 13:53 MCH 31.2 pg (25.0-34.0) 04/13/24 13:53 MCHC 30.8 g/dL (32.0-36.0) L 04/13/24 13:53 RDW Std Deviation 55.9 fL (36.4-46.3) H 04/13/24 13:53 RDW Coeff of Ahsan 15.0 % (11.5-14.5) H 04/13/24 13:53 Plt Count 446 K/uL (130-400) H 04/13/24 13:53 MPV 13.1 fL (9.4-12.4) H 04/13/24 13:53 Immature Gran % (Auto) 0.9 % 04/13/24 13:53 Neut % (Auto) 88.2 % 04/13/24 13:53 Lymph % (Auto) 5.5 % 04/13/24 13:53 [place] % (Auto) 2.6 % 04/13/24 13:53 Eos % (Auto) 1.8 % 04/13/24 13:53 Baso % (Auto) 1.0 % 04/13/24 13:53 Neut # (Auto) 20.23 K/uL (1.40-6.50) H 04/13/24 13:53 Lymph # (Auto) 1.26 K/uL (1.20-3.40) 04/13/24 13:53 [place] # (Auto) 0.59 K/uL (0.11-0.59) 04/13/24 13:53 Eos # (Auto) 0.41 K/uL (0.00-0.50) 04/13/24 13:53 Baso # (Auto) 0.22 K/uL (0.00-0.20) H 04/13/24 13:53 Immature Gran # (Auto) 0.21 K/uL (0.01-0.20) H 04/13/24 13:53 Giant Platelets 1+ 04/13/24 13:53 Polychromasia 1+ 04/13/24 13:53 Tear Drop Cells 1+ 04/13/24 13:53 Ovalocytes 1+ 04/13/24 13:53 PT 11.7 Seconds (9.0-12.0) 04/13/24 13:53 INR 1.1 (0.9-1.1) 04/13/24 13:53 APTT 33 Seconds (21-31) H 04/13/24 13:53 PTT Ratio 1.2 04/13/24 13:53 Sodium 138 mmol/L (136-145) 04/13/24 13:53 Potassium 4.6 mmol/L (3.5-5.1) 04/13/24 13:53 Chloride 101 mmol/L (98-107) 04/13/24 13:53 Carbon Dioxide 29 mmol/L (21-32) 04/13/24 13:53 Anion Gap 8 (3-11) 04/13/24 13:53 BUN 24 mg/dl (6-23) H 04/13/24 13:53 Creatinine 0.94 mg/dl (0.6-1.2) 04/13/24 13:53 Est Cr Clr Drug Dosing 37.2 ml/min 04/13/24 13:53 eGFR 62.11 04/13/24 13:53 BUN/Creatinine Ratio 25.5 (10-20) H 04/13/24 13:53 Glucose 93 mg/dl (70-99(Fasting)) 04/13/24 13:53 Calcium 10.1 mg/dl (8.6-10.3) 04/13/24 13:53 Total Bilirubin 1.1 mg/dl (0.2-1.0) H 04/13/24 13:53 AST 27 U/L (13-39) 04/13/24 13:53 ALT 16 U/L (7-52) 04/13/24 13:53 Alkaline Phosphatase 121 U/L (34-104) H 04/13/24 13:53 Total Protein 7.3 gm/dl (6.0-8.3) 04/13/24 13:53 Albumin 4.6 gm/dl (3.4-5.0) 04/13/24 13:53 Globulin 2.7 gm/dl (2.5-4.0) 04/13/24 13:53 Albumin/Globulin Ratio 1.7 (0.9-2) 04/13/24 13:53 Impressions Chest X-Ray 04/13/24 00:00 XR chest 1V not portable CLINICAL HISTORY: HIP FX COMPARISON STUDY: None FINDINGS: There is mild cardiomegaly without pulmonary vascular congestion. There are mitral valvular calcifications. No effusion, consolidation, or pneumothorax. IMPRESSION: No acute findings. ACT 112: Negative or not required by law. Electronically signed by: Dre Campbell M.D. 04/13/2024 1:51 PM Hip/Pelvis X-Ray 04/13/24 12:39 XR hip LT 2V w pelvis CLINICAL HISTORY: pain post fall COMPARISON: None FINDINGS: There is an acute comminuted mildly displaced intertrochanteric fracture proximal left femur. No other fracture or dislocation seen. IMPRESSION: Acute fracture proximal left femur. ACT 112: Negative or not required by law. Electronically signed by: Dre Campbell M.D. 04/13/2024 1:44 PM
--- NOTE | 2024-04-13 17:34 | XRay Report ---
EXAM: Radiographs of the Left Knee 1 or 2 Views INDICATION: Hip fracture TECHNIQUE: Frontal and lateral views of the left knee. COMPARISON: No relevant prior studies available. FINDINGS: Bones/joints: Knee arthroplasty components well-seated and intact. No fracture, subluxation or dislocation. Soft tissues: No abnormality noted. Vasculature: Mild atherosclerosis noted posterior to the distal femur. IMPRESSION: No acute abnormality of the left knee. ACT 112: N/A Electronically signed by Erma Alejandro 04-13-2024 5:33 PM
[2024-04-13] MEDS ORDERED: FEXOFENADINE HCL 180 MG TAB PO PRN (17:47)
[2024-04-13] MEDS ORDERED: FLUTICASONE PROPIONATE NA SPR 16 GM BTL NAE PRN (17:47)
[2024-04-13] MEDS ORDERED: hydrOXYzine HCl 10 MG TAB PO PRN (17:47)
[2024-04-13] MEDS ORDERED: GLUCOSE 40% GEL 15 GM TUBE PO PRN (17:48)
[2024-04-13] MEDS ORDERED: PHARMACY GLYCEMIC MGMT CONSULT PRN (17:48)
[2024-04-13] MEDS ORDERED: GLUCAGON FOR INJ 1 MG VIAL SQ PRN (17:48)
[2024-04-13] MEDS ORDERED: CARBOHYDRATES FOR HYPOGLYCEMIA PO PRN (17:48)
[2024-04-13] MEDS ORDERED: GLUCOSE 10 TAB/TUBE PO PRN (17:48)
[2024-04-13] MEDS ORDERED: DEXTROSE 50% 50 ML SYRINGE IV PRN (17:48)
--- NOTE | 2024-04-13 18:22 | Pharmacy Report ---
Pharmacy Glycemic Short Note 2 - Date of Service April 13, 2024 - Glycemic Short BSG Results (Last 24 hours): 04/13/24 04/13/24 13:53 18:04 Glucose 93 POC Glucose 99 OUTPATIENT ANTIDIABETIC REGIMEN: * metformin 500 mg PO qAM * A1c = pending ASSESSMENT: * Eunice is a 79 yo T2DM admitted s/p fall with acute fracture of proximal left femur. Planning for surgical intervention on 04/14/24 AM. * Metformin held on admission. A1c pending. Limited BSG data; 93 and 99 mg/dL thus far. * Will order Novolog correctional insulin only. Hold carb coverage pending BSG trend and A1c result. PLAN FOR INPATIENT GLYCEMIC CONTROL: * Hold outpatient oral diabetes medications * Basal insulin * none * Bolus insulin * NovoLog per scale ACHS or Q6hrs while NPO * Goal Range: Low 110 mg/dL - High 140 mg/dL * Correction Factor: 30 mg/dL/unit * Nutritional / Prandial insulin per carb ratio of 1 unit per __ grams CHO consumed
[2024-04-13] MEDS: INSULIN ASPART PER UNIT CHARGE SC SCH (18:58)
[2024-04-13] MEDS: ACETAMINOPHEN 500 MG TAB PO SCH (20:55)
[2024-04-13] MEDS: HYDROmorphone INJ 0.5 MG/0.5 ML SYR IV STA (22:41)
[2024-04-13] MEDS: CALCIUM 600MG + VIT D 400 IU TAB PO SCH (22:58)
[2024-04-13] MEDS: GABAPENTIN 300 MG CAP PO SCH (22:59)
[2024-04-14] MEDS: oxyCODONE HCL IR 5 MG TAB (IMMEDIATE RELEASE) PO PRN (01:31)
[2024-04-14] MEDS: INSULIN ASPART PER UNIT CHARGE SC SCH ×2 (06:33→17:37)
[2024-04-14] MEDS ORDERED: BUPIVACAINE 0.5 % 5 MG/1 ML PF 10ML VIAL ONE (06:44)
[2024-04-14 07:31] LABS: Hematocrit (blood only) 40.7 % (37.0-47.0); Hemoglobin 12.7 g/dl (12.0-16.0); Mean Corpuscular Hemoglobin 31.7 pg (25.0-34.0); Mean Corpuscular Hgb Conc 31.2 g/dL (32.0-36.0); Mean Corpuscular Volume 101.5 fL (80.0-100.0); Platelet Count 446 K/uL (130-400); RDW Coefficient of Variation 14.9 % (11.5-14.5); RDW Standard Deviation 56.1 fL (36.4-46.3); Red Blood Count 4.01 M/uL (4.20-5.40)
[2024-04-14 07:45] LABS: White Blood Count 27.96 K/ul (4.8-10.8)
[2024-04-14 07:53] LABS: BUN Creatinine Ratio 23.1 (10-20); Calcium 9.4 mg/dl (8.6-10.3); Creatinine Clr Calc Pharmacy 38.4 ml/min; Potassium 4.8 mmol/L (3.5-5.1)
[2024-04-14] MEDS ORDERED: ROCURONIUM BROMIDE 10 MG/ML 5 ML VIAL IV ONE (08:18)
[2024-04-14] MEDS ORDERED: LIDOCAINE 2% 20 MG/ML 5 ML SYR IV ONE (08:18)
[2024-04-14] MEDS ORDERED: PROPOFOL IV EMULSION 10 MG/ML 20 ML VIAL IV ONE (08:18)
[2024-04-14] MEDS ORDERED: SUGAMMADEX SODIUM 200 MG/2 ML VIAL IV ONE (08:19)
[2024-04-14] MEDS ORDERED: fentaNYL citrate PF 100 MCG/2 ML VIAL ONE (08:19)
[2024-04-14] MEDS: KCENTRA (500unit vial) 2000 units IVP IV ONE (09:18)
--- NOTE | 2024-04-14 09:29 | Anesthesiology Consultation ---
Date of Service April 14, 2024 Assessment & Plan Chart Review Chart Review: Acceptable Risk for Surgery and Patient NOT seen in Pre Admission Testing Consults Requested none History Surgery Operation Date: 04/14/24 09:35 Proposed Procedures p Left Long Troch Nail - Claude Argueta MD Height/Weight Height: 5 ft 1 in Weight: 50.3 kg Allergies Allergy/AdvReac Type Severity Reaction Status Date / Time adhesive tape Allergy Intermediate Hives Verified 04/14/24 09:05 Iodinated Contrast Media Allergy Intermediate HIVES TO Verified 04/14/24 09:05 RADIO OPAQUE CONTRAST iodine Allergy Intermediate HIVES- Verified 04/14/24 09:05 ALSO SEAFOOD-HIVES iothalamate sodium Allergy Intermediate Hives Verified 04/14/24 09:05 latex Allergy Intermediate HIVES Verified 04/14/24 09:05 morphine Allergy Intermediate hives Verified 04/14/24 09:05 hydrocodone AdvReac Mild BAD TASTE Verified 04/14/24 09:05 IN MOUTH lactose AdvReac Mild INTOLERANT Verified 04/14/24 09:05 sulindac [From [facility]] AdvReac Mild "Out of Verified 04/14/24 09:05 body experience" Medications Home Medications Medication Instructions Recorded Confirmed Last Taken atorvastatin 20 mg tablet 20 mg PO QAM 06/06/22 04/13/24 07/14/23 09:00 calcium 600 mg (as 1 tab PO BID 06/06/22 04/13/24 07/14/23 09:00 carbonate)-vitamin D3 5 mcg (200 unit) tablet cyanocobalamin (vitamin B-12) 500 500 mcg PO QAM 06/06/22 04/13/24 07/14/23 09:00 mcg tablet (Vitamin B-12) hydroxyurea 500 mg capsule 500 mg PO QAM 06/06/22 04/13/24 07/14/23 09:00 magnesium 500 mg tablet 500 mg PO QAM 06/06/22 04/13/24 07/14/23 09:00 metformin 500 mg tablet 500 mg PO QAM 06/06/22 04/13/24 07/13/23 09:00 gabapentin 300 mg capsule 300 mg PO TID 07/30/22 04/13/24 07/14/23 21:30 acetaminophen 650 mg 650 mg PO TID 09/20/22 04/13/24 07/14/23 21:30 tablet,extended release apixaban 5 mg tablet (Eliquis) 5 mg PO BID 09/20/22 04/13/24 07/13/23 09:00 fexofenadine 180 mg tablet 180 mg PO DAILY PRN Allergy 07/02/23 04/13/24 Unknown Symptoms fluticasone propionate 50 1 spray intranasal BID PRN 07/02/23 04/13/24 Unknown mcg/actuation nasal Congestion spray,suspension furosemide 20 mg tablet 40 mg PO [facility] 07/02/23 04/13/24 07/13/23 09:00 hydroxyzine HCl 10 mg tablet 10 mg PO QID PRN Itching 07/02/23 04/13/24 07/13/23 21:00 olmesartan 5 mg tablet (Benicar) 5 mg PO [facility] 07/02/23 04/13/24 07/14/23 09:00 omeprazole 20 mg capsule,delayed 20 mg PO [facility] 07/02/23 04/13/24 07/14/23 09:00 release Active Medications Generic Name Dose Route Start Last Admin [facility] Reason Stop Dose Admin Acetaminophen 1,000 mg 04/13/24 21:00 04/14/24 08:41 Acetaminophen 500 Mg Tab PO 05/13/24 20:59 1,000 mg Q8H HARRIET Administration Calcium/Vitamin D 1 tab 04/13/24 21:00 04/13/24 22:58 Calcium 600mg + Vit D 400 Iu Tab PO 05/13/24 20:59 1 tab BID HARRIET Administration Gabapentin 300 mg 04/13/24 21:00 04/13/24 22:59 Gabapentin 300 Mg Cap PO 05/13/24 20:59 300 mg TID HARRIET Administration Insulin Aspart 0 units 04/14/24 06:00 04/14/24 06:33 Insulin Aspart Per Unit Charge SC 05/14/24 05:59 Not Given Q6 HARRIET Oxycodone HCl 5 mg 04/13/24 15:17 04/14/24 02:08 Oxycodone Hcl Ir 5 Mg Tab (Immediate Release) PO 04/27/24 15:16 5 mg Q4H PRN Administration MODERATE Pain (4,5,6) & Pre PT Oxycodone HCl 10 mg 04/13/24 15:17 04/13/24 20:55 Oxycodone Hcl Ir 5 Mg Tab (Immediate Release) PO 04/27/24 15:16 10 mg Q4H PRN Administration SEVERE Pain (7,8,9,10) NPO Date Last Intake of Fluids: 04/13/24 Time Last Intake of Fluids: 22:00 Last Intake of Fluids Comment: water with po meds Date Last Intake of Solids: 04/13/24 Time Last Intake of Solids: 18:00 Past Medical History Medical History Paroxysmal atrial fibrillation Bladder cancer Diabetes mellitus, type 2 Seasonal allergies Polycythemia vera GERD (gastroesophageal reflux disease) History of breast cancer Rt breast 2018. surgery + radiation >no limb restriction TMJ (temporomandibular joint disorder) hx locking History of migraine History of DVT (deep vein thrombosis) LLE following travel Hearing deficit BL LAW Hypertension Dyslipidemia Past Family History Family History Mother , 89yo;Oxygen dependent;"bowel leak", HTN No problems noted. Father , 68yo;smoker, MS, poor circulation No problems noted. Brother No problems noted. Son No problems noted. Daughter No problems noted. Other No family history of adverse response to anesthesia Past Surgical History Surgical History History of cystoscopy bladder biopsy, fulguration>09/2022 [place] History of dilatation and curettage endometrial fibroid removed History of hysteroscopy uterine fibroid removed History of transurethral resection of bladder tumor (TURBT) 06/11/2223 Grade 1 view, MAC 3, ETT 7. History of breast biopsy History of foot surgery Rt x 2 History of colonoscopy History of lumpectomy of right breast History of cataract surgery rt/left Status post blepharoplasty of both eyes History of facelift Hx laparoscopic cholecystectomy History of arthroplasty of left knee Social History Smoking Status: Never smoker tobacco type: cigarettes Do You Dip or Chew Tobacco: No Hx Alcohol Use: No Hx Substance Use: No substance use type: does not use Physical Exam Vital Signs Last Vital Signs Temp 36.9 C 04/14/24 09:02 Pulse 76 04/14/24 09:02 Resp 18 04/14/24 09:02 BP 126/72 04/14/24 09:02 Pulse Ox 93 04/14/24 09:02 O2 Del Method Nasal Cannula 04/14/24 09:02 O2 Flow Rate 1 04/14/24 09:02 Testing Laboratory Results 04/14/24 06:44 04/14/24 06:44 PT 11.7 Seconds (9.0-12.0) 04/13/24 13:53 INR 1.1 (0.9-1.1) 04/13/24 13:53 APTT 33 Seconds (21-31) H 04/13/24 13:53 Blood Type B Positive 04/13/24 13:55 Antibody Screen NEGATIVE 04/13/24 13:55 04/14/24 04/14/24 04/14/24 09:04 06:13 00:11 POC Glucose 102 H 111 H 114 H
--- NOTE | 2024-04-14 09:30 | History & Physical Bridge Note ---
Date of Service April 14, 2024 History & Physical Bridge Note I have examined the patient, reviewed the History & Physical and in the interval since the performance of the History & Physical I have noted the following changes of clinical significance: no changes noted
[2024-04-14] MEDS ORDERED: ePHEDrine sulfate 50 MG/ML AMP IV PRN (09:34)
[2024-04-14] MEDS ORDERED: ONDANSETRON INJ 2 MG/ML 2 ML VIAL IV PRN (09:34)
[2024-04-14] MEDS ORDERED: ATROPINE SULFATE 0.1 MG/ML 10ML SYR IV PRN (09:34)
[2024-04-14] MEDS: LACTATED RINGER'S 1,000 ML IV SCH (09:38)
[2024-04-14] MEDS: ceFAZolin 2000MG 2,000 MG/15 ML SYR IV SCH (10:05)
[2024-04-14 10:14] LABS: Estimated Average Glucose 134 mg/dl; Hemoglobin A1C 6.3 % (4.5-5.6)
[2024-04-14] MEDS ORDERED: ePHEDrine sulfate 50 MG/ML AMP ONE (11:12)
[2024-04-14] MEDS: EPINEPHrine INJ 1 MG/ML AMP ONE (11:27)
[2024-04-14] MEDS: BUPIVACAINE 0.5 % 5 MG/1 ML MPF 30ML VIAL ONE (11:28)
[2024-04-14] MEDS: LIDOCAINE 1% LOCAL 20 ML VIAL ONE (11:36)
--- NOTE | 2024-04-14 11:42 | Operative Report ---
Post Operative Report Pre & Post Diagnosis Operation Date: 04/14/24 09:35 Pre-Op Diagnosis: left proximal femur fracture Post-Op Diagnosis: Probable left reverse obliquity intertrochanteric fracture I identified the patient and participated in the time-out.: Yes Procedure Operation Date: 04/14/24 09:35 Actual Procedures p Left Long Trochanteric Nail(Left) - Claude Argueta MD Surgeon Claude Argueta MD Mechanical Assembler [employer] [facility] hotel administrative assistant no resident or fellow available Estimated Blood Loss 25 Findings Consistent with Post-Op Diagnosis Specimens None Anesthesia Type General Regional Complications none Disposition Accompanied Patient To Recovery: No Disposition: Recovery Room Indications Eunice is 71 years old. She fell yesterday and sustained a left proximal femur fracture. It is comminuted and is probably a high subtrochanteric versus reverse obliquity type fracture. Surgery was recommended and she agreed to proceed. She was on preoperative Eliquis. This medication has been stopped 48 hours ago and care coordinated with hospitalist and Dr. Lama loera regarding use of Kcentra. Description of Procedure Informed consent. Patient identified. She identified the procedure site as the left hip. I marked with my initials. A preoperative surgical timeout was performed. A preop dose of intravenous antibiotics was given. She was taken to the OR anesthetized on the hospital bed then transferred to the fracture table. A padded perineal post was utilized. The right arm was placed lateral on an armboard. The left arm was padded with eggcrate folded across the chest and the torso secured the table with 3 inch silk tape. The legs were placed into balanced scissors traction left leg up right leg down. The fracture was reduced as was confirmed fluoroscopically with near anatomical alignment. Trace lateral displacement of the distal fragment. The leg was pretty scrubbed and then prepped and draped in the usual sterile fashion. DVT prophylaxis intraoperatively with SCDs. Postop early mobility mechanical devices and Eliquis. Kcentra was given in the preop holding area. She also got TXA. Fluoroscopic guidance was utilized throughout the surgical procedure. A 5 cm incision was made just proximal to the tip of the greater trochanter and in line with the shaft of the femur. A scalpel was utilized to dissect through the subcutaneous fat and put a small jennifer in the gluteal fascia which I then divided bluntly with my finger. The guidepin was introduced at the tip of the greater trochanter and confirmed to be in good position on multiplanar fluoroscopy. The opening reamer was utilized. A guide nieves was then inserted down to the patella. This was confirmed in multiplanar fluoroscopy. Initially tried to insert a 12.5 mm reamer however the canal was narrow. Went down to 11 which passed readily with strong cortical chatter. Reamed at 11.5 mm. Length was determined to be 380 mm. A 10 x 380 mm Synthes trochanteric femoral nail was inserted. Side left. The proximal insertion handle was applied and the guidewire for the helical blade was introduced in the standard percutaneous fashion. An incision was made with a scalpel. The intramedullary guidewire was removed. The guidewire for the spiral blade was adjusted x 3 to be just inferior and center on the lateral. Length was determined to be 90 mm. The lateral reamer and triple reamer were utilized followed by the insertion of a 90 mm blade. When reaming the guide wire penetrated through the femoral head into the acetabulum and was clinically withdrawn. The setscrew was advanced until tight and then backed off one half turn. The insertion apparatus was removed and new accounts representative fluoroscopic images were obtained. Prior to removal compression was applied. There was less than 1/2 cm of lateral displacement of the distal fragment but overall very good alignment. Fracture well reduced and hardware in good position. Attention was turned distally where using the standard percutaneous perfect [place] technique 2 distal interlocking screws were inserted. 1 static and 1 dynamic. This was confirmed in AP and lateral fluoroscopic views. Prior to this the traction was let off. Incisions were copiously irrigated. There was no significant bleeding. The distal incisions were closed with zero 2-0 Vicryl and leonard. The proximal incision was closed with #1 Vicryl for the fascia 0 Vicryl for the fat layer 2-0 Vicryl and leonard. Patient does have an elevated iodine allergy. We first put a clear plastic drape over her leg and then the Ioban drape for the shower curtain which did not directly contact her skin. No reaction was noted. The dressing consisted of Adaptic gauze ABDs foam tape. She was awakened from anesthesia after being transferred from the fracture table back to the OR bed and taken to the recovery room in stable condition. Incisions were irrigated with copious amounts of sterile saline. There was no significant bleeding noted. Counts were correct blood loss estimated to be 25 cc. At the conclusion the operation spoke with patient's family informed of my findings. Postop instructions were given. She can weight-bear as tolerated with PT and OT. She will need an extended care facility. She will restart her Eliquis in the morning. I attest to the content of the Intraoperative Record and any orders documented therein. Any exceptions are noted below.
--- NOTE | 2024-04-14 11:49 | Fluoroscopy Report ---
FL femur LT 2V CLINICAL HISTORY: LEFT TROCHNAIL COMPARISON STUDY: None FLUOROSCOPY TIME: 184 seconds FLUOROSCOPY IMAGES: 5 EXPOSURE DOSE: 19 mGy FINDINGS: Fluoroscopy was provided for left femoral gamma nail. IMPRESSION: Intraoperative fluoroscopy. ACT 112: Negative or not required by law. Electronically signed by: Dre Campbell M.D. 04/14/2024 11:48 AM
--- NOTE | 2024-04-14 11:50 | Operative Report ---
Post Operative Report Pre & Post Diagnosis Operation Date: 04/14/24 09:35 Pre-Op Diagnosis: left femur fracture Post-Op Diagnosis: left femur fracture I identified the patient and participated in the time-out.: Yes Procedure Operation Date: 04/14/24 09:35 Actual Procedures p Left Long Trochanteric Nail(Left) - Claude Argueta MD Surgeon Claude Argueta M.D. Audio/Video Engineer [facility] medical administrative assistant no resident or fellow available Estimated Blood Loss 25 Findings Consistent with Post-Op Diagnosis Specimens None Anesthesia Type General Regional Description of Procedure Patient was taken to the operating room and placed under general anesthesia. Time out was performed. She was given 2 g of IV Ancef for surgical prophylaxis. She was given 1 g of IV TXA preoperatively for bleeding prophylaxis. She was prepped and draped in routine sterile fashion. I was present during the entire case, please see Dr. Argueta's operative report for further details regarding today's procedure. Patient was awakened and transferred to the recovery room in stable condition. I attest to the content of the Intraoperative Record and any orders documented therein. Any exceptions are noted below.
[2024-04-14] MEDS: fentaNYL citrate PF 100 MCG/2 ML VIAL IV PRN (12:00)
--- NOTE | 2024-04-14 12:04 | Anesthesiology Progress Note ---
Date of Service April 14, 2024 Anesthesia Post Procedure Vital Signs Vital Signs: Temp Pulse Pulse Pulse Resp BP BP 04/14/24 09:02 36.9 C 76 18 04/14/24 07:23 36.7 C 77 16 130/73 04/14/24 00:07 82 14 04/13/24 21:45 04/13/24 19:40 62 14 04/13/24 19:17 04/13/24 17:30 74 16 04/13/24 15:15 80 18 04/13/24 14:23 67 25 H 04/13/24 13:43 60 04/13/24 12:34 36.5 C 78 22 165/74 H BP Pulse Ox Pulse Ox O2 Del Method O2 Del Method O2 Flow Rate 04/14/24 09:02 126/72 93 Nasal Cannula 1 04/14/24 07:23 96 Nasal Cannula 1 04/14/24 00:07 145/73 H 95 Nasal Cannula 1 04/13/24 21:45 Nasal Cannula 1 04/13/24 19:40 171/81 H 99 Nasal Cannula 1 04/13/24 19:17 91 Room Air 04/13/24 17:30 135/90 99 Room Air 04/13/24 15:15 143/71 H 97 Room Air 04/13/24 14:23 150/88 H 100 Nasal Cannula 2 04/13/24 13:43 04/13/24 12:34 97 Room Air Pain Intensity Left Hip: Pain Intensity: 4 Transfer of Care Handoff Completed per policy Notes Mental Status: alert / awake / arousable Patient Amnestic to Procedure: Yes Nausea / Vomiting: adequately controlled Pain: adequately controlled Airway Patency, RR, SpO2: stable & adequate BP & HR: stable & adequate Hydration State: stable & adequate Anesthetic Complications: no major complications apparent
[2024-04-14] MEDS: HYDROmorphone INJ 1 MG/ML SYRINGE ONE (12:34)
[2024-04-14] MEDS: HYDROmorphone INJ 1 MG/ML SYRINGE IV STA (12:42)
--- NOTE | 2024-04-14 13:18 | Pharmacy Report ---
Pharmacy Glycemic Short Note 2 - Date of Service April 14, 2024 - Glycemic Short BSG Results (Last 24 hours): 04/13/24 04/13/24 04/13/24 13:53 18:04 20:28 Glucose 93 POC Glucose 99 101 H 04/14/24 04/14/24 04/14/24 00:11 06:13 06:44 Glucose 100 H POC Glucose 114 H 111 H 04/14/24 04/14/24 09:04 11:56 Glucose POC Glucose 102 H 97 OUTPATIENT ANTIDIABETIC REGIMEN: * metformin 500 mg PO qAM * A1c = 6.3% (04/14/24) ASSESSMENT: 04/14: * Eunice has received no insulin since admission. She is now POD #0 s/p femur fracture repair. T2DM diet is ordered. No steroids given perioperatively per my chart review. * Continue with previously ordered Novolog parameters. No changes. 04/13: * Eunice is a 79 yo T2DM admitted s/p fall with acute fracture of proximal left femur. Planning for surgical intervention on 04/14/24 AM. * Metformin held on admission. A1c pending. Limited BSG data; 93 and 99 mg/dL thus far. * Will order Novolog correctional insulin only. Hold carb coverage pending BSG trend and A1c result. PLAN FOR INPATIENT GLYCEMIC CONTROL: * Hold outpatient oral diabetes medications * Basal insulin * none * Bolus insulin * NovoLog per scale ACHS or Q6hrs while NPO * Goal Range: Low 110 mg/dL - High 140 mg/dL * Correction Factor: 30 mg/dL/unit * Nutritional / Prandial insulin per carb ratio of 1 unit per __ grams CHO consumed
[2024-04-14] MEDS ORDERED: Nursing to Pharmacy Communication SCH (14:00)
[2024-04-14] MEDS: ATORVASTATIN 20 MG TAB PO SCH (15:12)
[2024-04-14] MEDS: MAGNESIUM OXIDE 400 MG TAB PO SCH (15:13)
[2024-04-14] MEDS: CYANOCOBALAMIN (B-12) 500 MCG TABLET PO SCH (15:13)
[2024-04-14] MEDS: PANTOprazole 40 MG TAB PO SCH (15:13)
[2024-04-14] MEDS: HYDROXYUREA 500 MG CAP PO SCH (15:13)
--- NOTE | 2024-04-14 16:40 | Hospitalist Progress Note ---
Date of Service April 14, 2024 Assessment & Plan (1) Fall: (2) Intertrochanteric fracture of left femur: Plan: Status postsurgical repair 04/14/2024 (3) Bladder carcinoma: (4) Diabetes mellitus, type 2: (5) Paroxysmal atrial fibrillation: (6) Dyslipidemia: (7) Hypertension: (8) Polycythemia vera: Plan Patient status post repair of left hip fracture. Continue postoperative care as per surgical team Restart Esperanza tomorrow Patient has chronic leukocytosis, slightly increased from baseline, suspect this is reactive due to the fracture will continue to monitor Therapies Continue to monitor glucose with insulin coverage as needed Communication with case management, patient resident at [facility], anticipate will go there for detention rehab when ready for discharge. Admission and Anticipated Discharge Date Admission Date: April 13, 2024 Subjective Patient seen postoperatively. Reports pain is fairly well-controlled. Patient does realize she has a little bit groggy and foggy from anesthesia yet. Physical Exam Physical Exam: Constitutional: Alert, nontoxic HEENT: Mucous membranes moist. Lungs: Clear to auscultation, decreased, no wheezes rales or rhonchi CV: S1-S2, regular Abdomen: Soft, nontender, nondistended Extremities: Left lateral thigh dressing clean and intact, some surrounding edema Neuro: No focal deficits Psych: Cooperative, normal mood Results & Data Results & Data Vital Signs (Past 12 Hours) Vital Signs Temp Pulse Pulse Resp BP BP Pulse Ox 04/14/24 16:23 36.4 C L 67 16 130/71 96 04/14/24 15:21 36.4 C L 70 16 127/70 100 04/14/24 14:21 36.6 C 70 16 132/70 98 04/14/24 13:30 36.3 C L 69 14 138/76 100 04/14/24 13:15 36.4 C L 80 16 144/70 H 97 04/14/24 13:00 36.3 C L 74 17 137/74 95 04/14/24 12:50 73 16 133/84 97 04/14/24 12:40 78 20 136/67 98 04/14/24 12:30 72 21 136/69 98 04/14/24 12:20 71 18 135/69 98 04/14/24 12:10 77 23 139/68 100 04/14/24 12:00 79 20 150/71 H 100 04/14/24 11:52 36.1 C L 87 12 156/76 H 98 04/14/24 09:02 36.9 C 76 18 126/72 93 04/14/24 07:23 36.7 C 77 16 130/73 96 O2 Del Method O2 Flow Rate 04/14/24 16:23 Nasal Cannula 4 04/14/24 15:21 Nasal Cannula 4 04/14/24 14:21 Nasal Cannula 4 04/14/24 13:30 Nasal Cannula 4 04/14/24 13:15 Room Air 04/14/24 13:00 Nasal Cannula 2 04/14/24 12:50 Nasal Cannula 2 04/14/24 12:40 Nasal Cannula 2 04/14/24 12:30 Nasal Cannula 2 04/14/24 12:20 Nasal Cannula 2 04/14/24 12:10 Nasal Cannula 2 04/14/24 12:00 Nasal Cannula 2 04/14/24 11:52 Nasal Cannula 2 04/14/24 09:02 Nasal Cannula 1 04/14/24 07:23 Nasal Cannula 1 Diagnostic Findings Reviewed imaging, laboratory and diagnostic studies. Pertinent findings as below. WBCs 27.9 Hemoglobin 12.7 Platelets of 446 Electrolytes stable Creatinine 0.91 Glucose 103 Hemoglobin A1c 6.3% (2) Intertrochanteric fracture of left femur Encounter type: initial encounter Fracture alignment: displaced Fracture type: closed Qualified Code(s): S72.142A - Displaced intertrochanteric fracture of left femur, initial encounter for closed fracture
[2024-04-14] MEDS: ceFAZolin 1000MG 1,000 MG/7.5 ML SYR IV SCH (17:57)
[2024-04-14] MEDS: TRANEXAMIC ACID / 0.7% NACL 1,000 MG/100 ML BAG IV SCH ×2 (20:11→20:46)
--- NOTE | 2024-04-14 21:07 | Electrocardiogram Report ---
Test Reason : Blood Pressure : */* mmHG Vent. Rate : 67 BPM Atrial Rate : 67 BPM P-R Int : 130 ms QRS Dur : 74 ms QT Int : 406 ms P-R-T Axes : 75 29 -6 degrees QTcB Int : 429 ms Normal sinus rhythm Normal ECG When compared with ECG of 20-May-2017 06:55, No significant change was found Confirmed by Jonathan Flannery ([id number]) on 04/14/2024 9:07:40 PM Referred By: Confirmed By: Jonathan Flannery
[2024-04-15 07:26] LABS: Basophils # (auto) 0.15 K/uL (0.00-0.20); Basophils % (auto) 0.7 %; Eosinophils # (auto) 0.24 K/uL (0.00-0.50); Eosinophils % (auto) 1.1 %; Hematocrit (blood only) 37.4 % (37.0-47.0); Hemoglobin 11.5 g/dl (12.0-16.0); Immature Granulocytes % (auto) 0.9 %; Lymphocytes # (auto) 1.33 K/uL (1.20-3.40); Lymphocytes % (auto) 6.1 %; Mean Corpuscular Hemoglobin 31.3 pg (25.0-34.0); Mean Corpuscular Hgb Conc 30.7 g/dL (32.0-36.0); Mean Corpuscular Volume 101.9 fL (80.0-100.0); Mean Platelet Volume 12.7 fL (9.4-12.4); Monocytes # (auto) 1.24 K/uL (0.11-0.59); Monocytes % (auto) 5.7 %; Neutrophils # (auto) 18.76 K/uL (1.40-6.50); Neutrophils % (auto) 85.5 %; Ovalocytes 1+; Platelet Count 354 K/uL (130-400); Polychromasia 1+; RDW Coefficient of Variation 15.2 % (11.5-14.5); RDW Standard Deviation 57.2 fL (36.4-46.3); Red Blood Count 3.67 M/uL (4.20-5.40); White Blood Count 21.92 K/ul (4.8-10.8)
[2024-04-15 07:44] LABS: BUN Creatinine Ratio 20.9 (10-20); Calcium 9.1 mg/dl (8.6-10.3); Creatinine Clr Calc Pharmacy 40.7 ml/min; Potassium 4.6 mmol/L (3.5-5.1)
[2024-04-15] MEDS: APIXABAN 5 MG TABLET PO SCH (08:10)
--- NOTE | 2024-04-15 09:52 | Orthopedic Progress Note ---
Date of Service April 15, 2024 Assessment & Plan (1) S/P ORIF (open reduction internal fixation) fracture: Plan: The patient was educated regarding today's findings. She was encouraged to continue participation with physical therapy and Occupational Therapy. Pain medication has been previously ordered. Start Eliquis this morning. The patient would like to return to [facility]. If she does well, hopefully she can be transferred tomorrow. 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 Continue with weightbearing as tolerated using her walker. Dressings will be changed tomorrow. Admission and Anticipated Discharge Date Admission Date: April 13, 2024 Subjective This 79-year-old female is seen today in her room. She is 1 day status post left hip ORIF with a trochanteric nail. She is sitting in her bedside chair. The patient states she is having a considerable amount of pain. She just fi nished physical therapy. She ate some of her breakfast this morning. She denies any current nausea, vomiting, chest pain, or shortness of breath. She knows she was confused yesterday after surgery. She states she is much better now. She knows she is in the hospital and states she used to live not far from here. Physical Exam Physical Exam: General: Well-developed, well-nourished, elderly female, in no acute distress. Sitting in bedside chair. Obvious discomfort. Skin: Warm dry with good turgor. Postsurgical dressings are in place on the left hip. There is no drainage through the bandages. These were left in place. Musculoskeletal: The patient has limited motion of the hip secondary to pain. She complains of significant left hip pain with minimal hip flexion as well as rotation. She is able to do bilateral toe raises without discomfort. She is able to extend her knee with some hip and quad discomfort. Neurologic: Gross sensation is intact across the left leg by soft touch. Peripheral pulses are 2+. Results & Data Vital Signs (Past 12 Hours) Vital Signs Temp Pulse Resp BP BP Pulse Ox Pulse Ox 04/15/24 07:55 36.7 C 65 18 107/62 93 04/15/24 03:37 36.6 C 70 14 104/61 95 04/15/24 00:28 93 04/14/24 23:46 37.0 C 76 14 116/65 96 O2 Del Method O2 Del Method O2 Flow Rate O2 Flow Rate 04/15/24 07:55 Room Air 04/15/24 03:37 Room Air 04/15/24 00:28 Nasal Cannula 1 04/14/24 23:46 Nasal Cannula 1 Laboratory Results CBC obtained this morning shows a white count of 21.92. H&H of 11.5 and 37.4. Platelets 354,000. PRP this morning shows normal electrolytes. BUN of 18 with creatinine 0.86. Glucose 91. Calcium normal at 9.1. Vitamin D level today is 32.6. Low end of normal.
[2024-04-15] MEDS: traMADol HCL 50 MG TABLET PO PRN (10:54)
--- NOTE | 2024-04-15 15:19 | Hospitalist Progress Note ---
Date of Service April 15, 2024 Assessment & Plan (1) Fall: (2) Intertrochanteric fracture of left femur: Plan: Status postsurgical repair 04/14/2024 (3) S/P ORIF (open reduction internal fixation) fracture: (4) Bladder carcinoma: (5) Diabetes mellitus, type 2: (6) Paroxysmal atrial fibrillation: (7) Dyslipidemia: (8) Hypertension: (9) Polycythemia vera: Plan Patient status post repair of left femur fracture. Overall doing well postoperatively. Patient reports not tolerating oxycodone, has tolerated tramadol in the past continue Tylenol add tramadol for pain control Continue therapies Discontinue Byers catheter Leukocytosis and thrombocytosis improving as expected, confirmed remaining most likely inflammatory response. Patient has chronic leukocytosis and is approaching her baseline. Anticipate discharge to rehab potentially tomorrow Attempted to update patient's daughter via phone, no answer, no identifying voicemail. Admission and Anticipated Discharge Date Admission Date: April 13, 2024 Subjective Patient sitting up in chair. Pain fairly well-controlled. Physical Exam Physical Exam: Constitutional: Alert HEENT: Mucous membranes moist. Lungs: Clear to auscultation, decreased, no wheezes rales or rhonchi CV: S1-S2, regular Abdomen: Soft, nontender, nondistended Extremities: Minimal lateral thigh around surgical dressing. Surgical dressing dry and clean Neuro: No focal deficits Psych: Cooperative, normal mood Results & Data Results & Data Vital Signs (Past 12 Hours) Vital Signs Temp Pulse Resp BP BP Pulse Ox Pulse Ox 04/15/24 08:00 93 04/15/24 07:55 36.7 C 65 18 107/62 93 04/15/24 03:37 36.6 C 70 14 104/61 95 O2 Del Method O2 Del Method 04/15/24 08:00 Room Air 04/15/24 07:55 Room Air 04/15/24 03:37 Room Air Diagnostic Findings Reviewed imaging, laboratory and diagnostic studies. Pertinent findings as below. WBCs 21.9 Hemoglobin 11.5 Platelets 354 Electrolytes stable Creatinine 0.86 (2) Intertrochanteric fracture of left femur Encounter type: initial encounter Fracture alignment: displaced Fracture type: closed Qualified Code(s): S72.142A - Displaced intertrochanteric fracture of left femur, initial encounter for closed fracture
[2024-04-16 07:45] VITALS: BP 118/67; PULSE 68; RESP 16; TEMP 97.5; O2SAT 93
[2024-04-16 08:37] LABS: Hematocrit (blood only) 36.4 % (37.0-47.0); Hemoglobin 11.1 g/dl (12.0-16.0); Mean Corpuscular Hemoglobin 31.1 pg (25.0-34.0); Mean Corpuscular Hgb Conc 30.5 g/dL (32.0-36.0); Mean Platelet Volume 12.9 fL (9.4-12.4); Platelet Count 353 K/uL (130-400); RDW Coefficient of Variation 15.3 % (11.5-14.5); RDW Standard Deviation 57.8 fL (36.4-46.3); Red Blood Count 3.57 M/uL (4.20-5.40); White Blood Count 23.82 K/ul (4.8-10.8)
--- NOTE | 2024-04-16 10:22 | Discharge Summary ---
Discharge Summary Date of Service April 16, 2024 Principal Dx & Hospital Course #1 = Principal Diagnosis (1) Fall: (2) Intertrochanteric fracture of left femur: Status postsurgical repair 04/14/2024 (3) S/P ORIF (open reduction internal fixation) fracture: (4) Bladder carcinoma: (5) Diabetes mellitus, type 2: (6) Paroxysmal atrial fibrillation: (7) Dyslipidemia: (8) Hypertension: (9) Polycythemia vera: Plan Patient presents to the emergency department after suffering a fall in her home. Imaging in the ED consistent with a left trochanteric fracture. Patient was admitted to the hospital. She was continued on her usual medications. Orthopedic consultation was obtained. She was evaluated by orthopedic surgery and taken to the operating room for trochanteric nailing. Her postoperative course was uneventful. Patient has chronic leukocytosis. She had a mild inflammatory response and increase her leukocytosis present return to her baseline. Other laboratory studies remained stable. She was seen by therapies. It was recommended she go to senior care rehab. Case management was involved in her care. They coordinated for her to get skilled rehab at [facility]. Her pain was controlled with Tylenol and tramadol. On day of discharge she was eating well. Vital signs stable. Pain control. Eager to continue her therapy at [facility]. Notes For Next Care Provider Activity as directed by orthopedic recommendations Follow-up with orthopedics as scheduled Follow-up with her peel oven tender/oncologist as scheduled Medication Changes From Visit Tramadol for pain Admission HPI Per Admitting Provider This is a 79-year-old female with PMH of type 2 diabetes, dyslipidemia, hypertension, paroxysmal atrial fibrillation on anticoagulation, HFpEF, history of bladder cancer (s/p TURBT in 07/02 at [facility]), thrombocytosis, polycythemia vera, history of breast cancer, remote history of DVT, JAK2 gene mutation and other medical problems listed below who presents from home after a fall. Patient was walking up an incline towards an office building for an appointment and when she pulled on the door of the building, her fingers slipped and she fell backwards, falling onto her left side. Denies any head trauma. Had immediate pain of the left hip following event. Was brought to ED for further evaluation. Currently still experiencing 9/10 pain of left upper leg/hip. Denies any paresthesias or numbness of lower left extremity. No lightheadedness, chest pain, palpitations, shortness of breath, nausea, vomiting, abdominal pain, dysuria, diarrhea or constipation. Has been on cefdinir course for jaw pain/sinusitis with EOT 04/15. Admission Exam Per Admitting Provider See H&P Discharge Exam Constitutional: Alert HEENT: Mucous membranes moist. Lungs: Clear to auscultation, decreased, no wheezes rales or rhonchi CV: S1-S2, regular Abdomen: Soft, nontender, nondistended Extremities: No significant edema, surgical dressing dry and intact no redness surrounding the dressing. Minimal edema surrounding in dressing and incision. Neuro: No focal deficits Psych: Cooperative, normal mood Updated Medication List Medication Instructions Recorded Confirmed Type olmesartan 5 mg tablet (Benicar) 5 mg PO QAM 07/02/23 04/13/24 History acetaminophen 650 mg 650 mg PO QID #100 tabs 04/16/24 Rx tablet,extended release apixaban 5 mg tablet (Eliquis) 5 mg PO BID #60 tabs 04/16/24 Rx atorvastatin 20 mg tablet 20 mg PO QAM #30 tabs 04/16/24 Rx calcium 600 mg (as 1 tab PO BID #60 tabs 04/16/24 Rx carbonate)-vitamin D3 5 mcg (200 unit) tablet cyanocobalamin (vitamin B-12) 500 500 mcg PO QAM #30 tabs 04/16/24 Rx mcg tablet (Vitamin B-12) fexofenadine 180 mg tablet 180 mg PO DAILY PRN Allergy 04/16/24 Rx Symptoms #30 tabs fluticasone propionate 50 1 spray intranasal BID PRN 04/16/24 Rx mcg/actuation nasal Congestion #1 g spray,suspension furosemide 20 mg tablet 40 mg (2 x 20 mg) PO QAM #30 tabs 04/16/24 Rx gabapentin 300 mg capsule 300 mg PO TID #90 caps 04/16/24 Rx hydroxyurea 500 mg capsule 500 mg PO QAM #30 caps 04/16/24 Rx hydroxyzine HCl 10 mg tablet 10 mg PO QID PRN Itching #30 tabs 04/16/24 Rx metformin 500 mg tablet 500 mg PO QAM #30 tabs 04/16/24 Rx omeprazole 20 mg capsule,delayed 20 mg PO QAM #30 caps 04/16/24 Rx release tramadol 50 mg tablet 50 mg PO Q6H PRN pain #20 tabs 04/16/24 Rx Hospital Stay Data Consultations 04/13/24 13:46 Consult Orthopedic Surgery Routine 04/13/24 14:14 ED Decision to Admit Stat 04/13/24 14:50 Consult Anesthesiology Routine Procedures Performed Operation Date: 04/14/24 09:35 Actual Procedures p Left Long Trochanteric Nail(Left) - Claude Argueta MD Diagnostic Imagining Performed 04/14/24 06:54 FL femur LT 2V Routine Reviewed imaging, laboratory and diagnostic studies. Pertinent findings as below. WBCs 23.8 Hemoglobin 11.1 Platelets of 353 Electrolytes within normal range Creatinine 0.86 Hemoglobin A1c 6.3% Pending Results Patient Have Any Pending Studies at Discharge: No Discharge Instructions Given to Patient (Per Discharging Provider) Continue with rehabilitation with therapies as outlined below Continue follow-up with outpatient peel oven tender as scheduled Total Time Total Time Spent Total Time Spent (In Minutes): 25
--- NOTE | 2024-04-16 10:23 | Orthopedic Progress Note ---
Date of Service April 16, 2024 Assessment & Plan (1) S/P ORIF (open reduction internal fixation) fracture: Plan: PT/OT DVT prophylaxis with teds and Eliquis Pain controlled p.o. medication Ice with easy wrap Dressing changed this morning Weightbearing as tolerated with walker assistance Follow-up at [facility] orthopedics as scheduled Plan is to discharge to [place] [facility] for rehab later this afternoon With questions contact our clinic at [phone] Admission and Anticipated Discharge Date Admission Date: April 13, 2024 Subjective This 79-year-old female seen day 2 status post left hip fracture open reduction internal fixation with trochanteric nailing. Patient states that her pain is well-controlled with p.o. pain medication. She states she is on Eliquis for DVT prophylaxis. Patient states that she is scheduled to be discharged to [place] [facility] in [place] later this afternoon. Currently she denies chest pain, shortness of breath, fever, chills, sweats, nausea, vomiting, diarrhea or difficulty voiding. She states she has been able to participate with physical therapy and Occupational Therapy. Review of Systems Review of Systems: All systems reviewed & are unremarkable except as noted in Subjective Physical Exam Physical Exam: Left hip: Dressings were changed this morning. New dressings consisting of sterile 4 x 4's and Tegaderms were placed over the incision sites. Loc were in place. There is no active drainage. Patient was unable to perform active straight leg raise test however she did tolerate passive leg raise testing. She was able to actively dorsi and plantarflex her foot. She tolerated passive knee flexion to about 60 degrees but did experience some slight pain in her hip with light passive internal and external hip rotation. Her calf is soft and supple nontender to palpation. She was able to detect light sensation to touch over the pads of all digits. Results & Data Vital Signs (Past 12 Hours) Vital Signs Temp Pulse Resp BP Pulse Ox Pulse Ox O2 Del Method 04/16/24 08:00 93 04/16/24 07:45 36.4 C L 68 16 118/67 93 Room Air 04/16/24 00:29 92 O2 Del Method 04/16/24 08:00 Room Air 04/16/24 07:45 04/16/24 00:29 Room Air Diagnostic Findings Laboratory Results WBC 23.82 K/ul (4.8-10.8) H 04/16/24 07:18 RBC 3.57 M/uL (4.20-5.40) L 04/16/24 07:18 Hgb 11.1 g/dl (12.0-16.0) L 04/16/24 07:18 Hct 36.4 % (37.0-47.0) L 04/16/24 07:18 MCV 102.0 fL (80.0-100.0) H 04/16/24 07:18 MCH 31.1 pg (25.0-34.0) 04/16/24 07:18 MCHC 30.5 g/dL (32.0-36.0) L 04/16/24 07:18 RDW Std Deviation 57.8 fL (36.4-46.3) H 04/16/24 07:18 RDW Coeff of Ahsan 15.3 % (11.5-14.5) H 04/16/24 07:18 Plt Count 353 K/uL (130-400) 04/16/24 07:18 MPV 12.9 fL (9.4-12.4) H 04/16/24 07:18 Immature Gran % (Auto) 0.9 % 04/15/24 06:35 Neut % (Auto) 85.5 % 04/15/24 06:35 Lymph % (Auto) 6.1 % 04/15/24 06:35 [place] % (Auto) 5.7 % 04/15/24 06:35 Eos % (Auto) 1.1 % 04/15/24 06:35 Baso % (Auto) 0.7 % 04/15/24 06:35 Neut # (Auto) 18.76 K/uL (1.40-6.50) H 04/15/24 06:35 Lymph # (Auto) 1.33 K/uL (1.20-3.40) 04/15/24 06:35 [place] # (Auto) 1.24 K/uL (0.11-0.59) H 04/15/24 06:35 Eos # (Auto) 0.24 K/uL (0.00-0.50) 04/15/24 06:35 Baso # (Auto) 0.15 K/uL (0.00-0.20) 04/15/24 06:35 Immature Gran # (Auto) 0.20 K/uL (0.01-0.20) 04/15/24 06:35 Giant Platelets 1+ 04/13/24 13:53 Polychromasia 1+ 04/15/24 06:35 Tear Drop Cells 1+ 04/13/24 13:53 Ovalocytes 1+ 04/15/24 06:35 PT 11.7 Seconds (9.0-12.0) 04/13/24 13:53 INR 1.1 (0.9-1.1) 04/13/24 13:53 APTT 33 Seconds (21-31) H 04/13/24 13:53 PTT Ratio 1.2 04/13/24 13:53 Sodium 137 mmol/L (136-145) 04/15/24 06:35 Potassium 4.6 mmol/L (3.5-5.1) 04/15/24 06:35 Chloride 100 mmol/L (98-107) 04/15/24 06:35 Carbon Dioxide 29 mmol/L (21-32) 04/15/24 06:35 Anion Gap 8 (3-11) 04/15/24 06:35 BUN 18 mg/dl (6-23) 04/15/24 06:35 Creatinine 0.86 mg/dl (0.6-1.2) 04/15/24 06:35 Est Cr Clr Drug Dosing 40.7 ml/min 04/15/24 06:35 eGFR 69.10 04/15/24 06:35 BUN/Creatinine Ratio 20.9 (10-20) H 04/15/24 06:35 Glucose 91 mg/dl (70-99(Fasting)) 04/15/24 06:35 POC Glucose 116 mg/dl (70-99) H 04/16/24 07:37 Estimat Average Glucose 134 mg/dl 04/14/24 06:44 Hemoglobin A1c 6.3 % (4.5-5.6) H 04/14/24 06:44 Calcium 9.1 mg/dl (8.6-10.3) 04/15/24 06:35 Total Bilirubin 1.1 mg/dl (0.2-1.0) H 04/13/24 13:53 AST 27 U/L (13-39) 04/13/24 13:53 ALT 16 U/L (7-52) 04/13/24 13:53 Alkaline Phosphatase 121 U/L (34-104) H 04/13/24 13:53 Total Protein 7.3 gm/dl (6.0-8.3) 04/13/24 13:53 Albumin 4.6 gm/dl (3.4-5.0) 04/13/24 13:53 Globulin 2.7 gm/dl (2.5-4.0) 04/13/24 13:53 Albumin/Globulin Ratio 1.7 (0.9-2) 04/13/24 13:53 25-OH Vitamin D Total 32.6 ng/ml (30-100) 04/15/24 06:35 Blood Type B Positive 04/13/24 13:55 Antibody Screen NEGATIVE 04/13/24 13:55 Impressions Chest X-Ray 04/13/24 00:00 XR chest 1V not portable CLINICAL HISTORY: HIP FX COMPARISON STUDY: None FINDINGS: There is mild cardiomegaly without pulmonary vascular congestion. There are mitral valvular calcifications. No effusion, consolidation, or pneumothorax. IMPRESSION: No acute findings. ACT 112: Negative or not required by law. Electronically signed by: Dre Campbell M.D. 04/13/2024 1:51 PM Hip/Pelvis X-Ray 04/13/24 12:39 XR hip LT 2V w pelvis CLINICAL HISTORY: pain post fall COMPARISON: None FINDINGS: There is an acute comminuted mildly displaced intertrochanteric fracture proximal left femur. No other fracture or dislocation seen. IMPRESSION: Acute fracture proximal left femur. ACT 112: Negative or not required by law. Electronically signed by: Dre Campbell M.D. 04/13/2024 1:44 PM Knee X-Ray 04/13/24 16:10 EXAM: Radiographs of the Left Knee 1 or 2 Views INDICATION: Hip fracture TECHNIQUE: Frontal and lateral views of the left knee. COMPARISON: No relevant prior studies available. FINDINGS: Bones/joints: Knee arthroplasty components well-seated and intact. No fracture, subluxation or dislocation. Soft tissues: No abnormality noted. Vasculature: Mild atherosclerosis noted posterior to the distal femur. IMPRESSION: No acute abnormality of the left knee. ACT 112: N/A Electronically signed by Erma Alejandro 04-13-2024 5:33 PM Femur X-Ray 04/14/24 06:54 FL femur LT 2V CLINICAL HISTORY: LEFT TROCHNAIL COMPARISON STUDY: None FLUOROSCOPY TIME: 184 seconds FLUOROSCOPY IMAGES: 5 EXPOSURE DOSE: 19 mGy FINDINGS: Fluoroscopy was provided for left femoral gamma nail. IMPRESSION: Intraoperative fluoroscopy. ACT 112: Negative or not required by law. Electronically signed by: Dre Campbell M.D. 04/14/2024 11:48 AM
[2024-04-16] MEDS: traMADol HCL 50 MG TABLET PO PRN (10:48)
== END 2024-04-16 12:18 | DRG 481 ==
LOC: ED 12:26 → EDINP 14:46 → 3N 20:05

== ENCOUNTER 2024-05-27 13:20 | Observation (INO) ==
--- NOTE | 2024-05-27 13:38 | Emergency Department Note ---
Impression & Plan Acute non-ST elevation myocardial infarction (NSTEMI), Fall, Elevated WBC count, Closed compression fracture of thoracic vertebra, Chest wall contusion ED Provider Note NAME: JIE MCDERMOTT AGE: 79 SEX: F : 1945 ARRIVES VIA: Ambulance INFORMANT: Patient, ED PROVIDER(S): Joseluis Russell DO CHIEF COMPLAINT: Chest pain HPI: The patient is a 79-year-old female who fell in the shower landing on her right side. She complains of significant chest pain and difficulty breathing. The patient does take blood thinners. She was made an injury alert prior to arrival. The patient denies having any headache or neck pain. She recently had a left hip surgery and denies having any pain over the hip. She did not receive any pain medication prior to arrival. The patient arrived via BLS. She states that she has been compliant with her outpatient medications. She denies having any abdominal pain or vomiting. ROS: See above HPI for pertinent positives & negatives. A total of 10 systems reviewed and were otherwise negative. PAST MEDICAL HISTORY: See Below PAST SURGICAL HISTORY: See Below FAMILY HISTORY: See Below SOCIAL HISTORY: See Below HOME MEDICATIONS: See Below ALLERGIES: See Below VITALS: See Below PHYSICAL EXAMINATION: Primary Survey Airway: Intact Breathing: Splinting respirations were noted. Diminished breath sounds are noted in the right lung field. Circulation: Skin warm, distal pulses 2+, capillary refill less than 2 seconds Disability Pupils: Equal and reactive to light, 4mm, brisk GCS: 15, Moves all extremities. Sensory: No deficits Secondary Survey GEN: Well developed and well-nourished HEAD: Normal cephalic atraumatic EYES: Pupils round reactive to light, conjunctiva clear, extraocular movements intact, no raccoons eyes ENT: No fluid in external acoustic canals, no hemotympanum, no townsend's sign, nares patent, oropharynx clear NECK: No JVD, midline trachea, no cervical spine tenderness, C-collar in place HEART: Regular rate and rhythm LUNGS: Splinting respirations were noted on the right side. CHEST: Tenderness to the right side of the chest was noted. There is no obvious crepitus. ABD: No Faith-Edward's or Jose's sign, soft, non-tender, no rebound or guarding, BACK: No step offs or deformities, T-L spine non tender the patient is able to hold each leg off of the bed for greater than 5 seconds. EXT: 2+ global pulses, moving all extremities well, +5/5 muscle strength globally NEURO: CNII-XII grossly intact, no sensory deficits MEDICAL DECISION MAKING: The patient is a 79-year-old female who presented to the emergency department as an injury alert. The patient had a fall while she was going to her bathroom. She fell striking the right side of her chest. She did have significant tenderness to palpation of her chest wall. I thought she may have had some rib fractures given the fact that she was on blood thinners she was made an injury alert. I discussed the patient's laboratory and radiographic studies with her and her family member. She was treated with pain medication in the emergency department. She did require supplemental oxygen. The patient was found to have signs of elevated troponin. Her EKG does show ischemic changes but this appears very consistent with her previous EKG. The patient was also found to have a thoracic compression fracture. I discussed her condition with both the spinal surgeon at [facility] as well as our [facility] spinal surgeon. No definite surgical intervention would be required at this time and the patient was felt to be a good candidate to stay at our facility. I discussed her condition with the on-call [facility] hospitalist. They have agreed to evaluate the patient in the emergency department for further management and disposition. The patient may require further workup because of her elevated troponin as well as her elevated white blood cell count. Triage Nursing notes reviewed. Prior medical records reviewed Vital Signs: reviewed and remarkable for no significant abnormalities Differential diagnosis: Fracture, dislocation, contusion, intra-abdominal, pneumothorax, intrathoracic, intracranial, neurologic, compartment syndrome, rhabdomyolysis, as well as other pathologies. ER treatment provided: See below Diagnostics interpreted by me: ECG: EKG was obtained in the emergency department. My interpretation is normal sinus rhythm at [address] segment depressions were noted. There were no PVCs. This was compared to a tracing from April 13, 2024. A similar ST segment depression was noted in the inferior leads, Cardiac Monitoring: An order was placed for continuous cardiac monitoring. The monitor shows a rate of 83 bpm with sinus rhythm. Laboratory studies: As stated above and show below. Imaging studies: See below. Radiographic imaging was reviewed by myself Consultation(s): I discussed this case with Dr. Oliver who is on-call for spinal surgery at [facility]. I discussed this case with Dr. Ambrosio who is on-call for orthopedic spine. I discussed this case with Delfina who is on-call for the [facility] hospitalist group. ED COURSE: Procedures: none Critical Care: I have personally spent greater than 35 minutes of critical care time in the direct management of this patient. This includes bedside care, interpretation of diagnostic studies, and testing, discussion with consultants, patient, and family members, and other required patient management activities. This 35 minutes is in excess of all separately billable procedures. Past Med/Surg History Problem List (Updated 05/27/24 @ 18:21 by Joseluis Russell DO) Chest wall contusion (Acute) Closed compression fracture of thoracic vertebra (Acute) Elevated WBC count (Acute) Fall (Acute) Acute non-ST elevation myocardial infarction (NSTEMI) (Acute) S/P ORIF (open reduction internal fixation) fracture Leukocytosis (Acute) Polycythemia vera (Acute) History of atrial fibrillation (Acute) Fall (Acute) Fall Intertrochanteric fracture of left femur (Acute) Endometrial mass Bladder carcinoma [place]URBT- 06/2022 [place] Mass of bladder Bladder tumor Malignant neoplasm of upper-outer quadrant of right breast in female, 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 surgery + radiation >no limb restriction TMJ (temporomandibular joint disorder) hx locking History of migraine History of DVT (deep vein thrombosis) LLE following travel Hearing deficit BL LAW Hypertension Dyslipidemia Surgical History History of cystoscopy bladder biopsy, fulguration>09/2022 [place] History of dilatation and curettage endometrial fibroid removed History of hysteroscopy uterine fibroid removed History of transurethral resection of bladder tumor (TURBT) 06/11/2223 Grade 1 view, MAC 3, ETT 7. History of breast biopsy History of foot surgery Rt x 2 History of colonoscopy History of lumpectomy of right breast History of cataract surgery rt/left Status post blepharoplasty of both eyes History of facelift Hx laparoscopic cholecystectomy History of arthroplasty of left knee Family History Mother , 89yo;Oxygen dependent;"bowel leak", HTN No problems noted. Father , 68yo;smoker, [place], poor circulation No problems noted. Brother No problems noted. Son No problems noted. Daughter No problems noted. 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 Feels Safe at Home: Yes Assistive Devices: Cane Allergies Allergies Allergy/AdvReac Type Severity Reaction Status Date / Time adhesive tape Allergy Intermediate Hives Verified 04/14/24 09:05 Iodinated Contrast Media Allergy Intermediate HIVES TO Verified 04/14/24 09:05 RADIO OPAQUE CONTRAST iodine Allergy Intermediate HIVES- Verified 04/14/24 09:05 ALSO SEAFOOD-HIVES iothalamate sodium Allergy Intermediate Hives Verified 04/14/24 09:05 latex Allergy Intermediate HIVES Verified 04/14/24 09:05 morphine Allergy Intermediate hives Verified 04/14/24 09:05 hydrocodone AdvReac Mild BAD TASTE Verified 04/14/24 09:05 IN MOUTH lactose AdvReac Mild INTOLERANT Verified 04/14/24 09:05 sulindac [From Clinoril] AdvReac Mild "Out of Verified 04/14/24 09:05 body experience" Home Meds Home Medications Medication Instructions Recorded Confirmed olmesartan 5 mg tablet (Benicar) 5 mg PO QAM 07/02/23 05/27/24 albuterol sulfate 90 mcg/actuation 2 puff inhalation Q6H PRN cough or 05/27/24 05/27/24 aerosol inhaler wheezing diclofenac sodium 1 % topical gel 2 g topical QID PRN Pain 05/27/24 05/27/24 furosemide 40 mg tablet 20 mg PO DAILY PRN swelling 05/27/24 05/27/24 loratadine 10 mg tablet 10 mg PO DAILY 05/27/24 05/27/24 lorazepam 0.5 mg tablet 0.5 mg PO BID PRN Anxiety 05/27/24 05/27/24 metformin 500 mg tablet 500 mg PO BID 05/27/24 05/27/24 Previous Rx's Medication Instructions Recorded acetaminophen 650 mg 650 mg PO QID #100 tabs 04/16/24 tablet,extended release apixaban 5 mg tablet (Eliquis) 5 mg PO BID #60 tabs 04/16/24 atorvastatin 20 mg tablet 20 mg PO QAM #30 tabs 04/16/24 calcium 600 mg (as 1 tab PO BID #60 tabs 04/16/24 carbonate)-vitamin D3 5 mcg (200 unit) tablet cyanocobalamin (vitamin B-12) 500 500 mcg PO QAM #30 tabs 04/16/24 mcg tablet (Vitamin B-12) fluticasone propionate 50 1 spray intranasal BID PRN 04/16/24 mcg/actuation nasal Congestion #1 g spray,suspension gabapentin 300 mg capsule 300 mg PO TID #90 caps 04/16/24 hydroxyurea 500 mg capsule 500 mg PO QAM #30 caps 04/16/24 hydroxyzine HCl 10 mg tablet 10 mg PO QID PRN Itching #30 tabs 04/16/24 omeprazole 20 mg capsule,delayed 20 mg PO QAM #30 caps 04/16/24 release Results & Data (ED) Vital Signs Vital Signs - 24 hr 05/27/24 13:27 05/27/24 13:30 05/27/24 14:18 Temperature 36.7 C Temperature Source Oral Pulse Rate 90 Pulse Rate [Finger] 83 89 Pulse Rhythm Regular Pulse Rhythm [Finger] Regular Pulse Strength Normal Pulse Strength [Finger] Normal Respiratory Rate 20 20 16 Respiratory Effort / Characteristics Non-Labored Non-Labored Non-Labored Spontaneous Respiratory Depth Normal Normal Respiratory Pattern Regular Regular Blood Pressure 176/96 H Blood Pressure [Right Arm] 168/95 H 170/93 H Blood Pressure Mean 122 Blood Pressure Mean [Right Arm] 119 118 Blood Pressure Position Lying Blood Pressure Position [Right Arm] Lying Pulse Oximetry 92 96 Oxygen Delivery Method Room Air Nasal Cannula Oxygen Flow Rate 2 Sepsis Recent Fever Within 48 Hours No Sepsis New/Unexplained Change in Mental Status N/A Sepsis Action Taken by Nursing No Action Required 05/27/24 14:19 05/27/24 14:19 05/27/24 14:30 Temperature Temperature Source Pulse Rate 89 83 Pulse Rate [Finger] 83 Pulse Rhythm Pulse Rhythm [Finger] Pulse Strength Pulse Strength [Finger] Respiratory Rate 16 16 Respiratory Effort / Characteristics Non-Labored Spontaneous Respiratory Depth Respiratory Pattern Blood Pressure Blood Pressure [Right Arm] 166/96 H Blood Pressure Mean Blood Pressure Mean [Right Arm] 119 Blood Pressure Position Blood Pressure Position [Right Arm] Pulse Oximetry 96 96 Oxygen Delivery Method Nasal Cannula Room Air Oxygen Flow Rate 2 Sepsis Recent Fever Within 48 Hours Sepsis New/Unexplained Change in Mental Status Sepsis Action Taken by Nursing 05/27/24 15:00 05/27/24 16:00 05/27/24 17:00 Temperature Temperature Source Pulse Rate Pulse Rate [Finger] 78 81 83 Pulse Rhythm Pulse Rhythm [Finger] Regular Pulse Strength Pulse Strength [Finger] Normal Normal Normal Respiratory Rate 21 18 19 Respiratory Effort / Characteristics Non-Labored Spontaneous Non-Labored Spontaneous Non-Labored Spontaneous Respiratory Depth Normal Normal Normal Respiratory Pattern Regular Regular Regular Blood Pressure Blood Pressure [Right Arm] 162/88 H 157/117 H 152/78 H Blood Pressure Mean Blood Pressure Mean [Right Arm] 112 130 102 Blood Pressure Position Blood Pressure Position [Right Arm] Sitting Lying Lying Pulse Oximetry 92 97 96 Oxygen Delivery Method Room Air Nasal Cannula Nasal Cannula Oxygen Flow Rate 2 2 Sepsis Recent Fever Within 48 Hours Sepsis New/Unexplained Change in Mental Status Sepsis Action Taken by Snf Medications Current Medication List: was personally reviewed by me Laboratory Data Attestation: I reviewed the patient's lab results. 05/27/24 13:45 05/27/24 13:45 Lab Results 05/27/24 05/27/24 05/27/24 Range/Units 13:45 13:52 15:51 WBC 29.86 H (4.8-10.8) K/ul RBC 3.91 L (4.20-5.40) M/uL Hgb 12.3 (12.0-16.0) g/dl POC Hgb 15.0 (12.0-16.0) g/dl Hct 39.6 (37.0-47.0) % POC Hct 44 (37-47) % MCV 101.3 H (80.0-100.0) fL MCH 31.5 (25.0-34.0) pg MCHC 31.1 L (32.0-36.0) g/dL RDW Std Deviation 60.5 H (36.4-46.3) fL RDW Coeff of Ahsan 16.3 H (11.5-14.5) % Plt Count 570 H (130-400) K/uL MPV 12.9 H (9.4-12.4) fL Immature Gran % (Auto) 2.2 % Neut % (Auto) 88.1 % Lymph % (Auto) 4.2 % Divide % (Auto) 3.0 % Eos % (Auto) 1.4 % Baso % (Auto) 1.1 % Neut # (Auto) 26.30 H (1.40-6.50) K/uL Lymph # (Auto) 1.24 (1.20-3.40) K/uL Divide # (Auto) 0.91 H (0.11-0.59) K/uL Eos # (Auto) 0.41 (0.00-0.50) K/uL Baso # (Auto) 0.34 H (0.00-0.20) K/uL Immature Gran # (Auto) 0.66 H (0.01-0.20) K/uL PT 12.4 H (9.0-12.0) Seconds INR 1.2 H (0.9-1.1) APTT 33 H (21-31) Seconds PTT Ratio 1.2 POC Sodium 140 (135-144) mmol/L Sodium 141 (136-145) mmol/L POC Potassium 3.2 L (3.3-5.0) mmol/L Potassium 3.3 L (3.5-5.1) mmol/L POC Chloride 99 L (101-112) mmol/L Chloride 100 (98-107) mmol/L Carbon Dioxide 32 (21-32) mmol/L POC Total CO2 29 (24-31) mmol/L Anion Gap 9 (3-11) POC Anion Gap 16.0 (16-25) mmol/L POC BUN 9 (7-18) mg/dl BUN 10 (6-23) mg/dl Creatinine 0.61 (0.6-1.2) mg/dl POC Creatinine 2.3 H (0.6-1.3) mg/dl Est Cr Clr Drug Dosing 57.4 ml/min eGFR 91.45 BUN/Creatinine Ratio 16.4 (10-20) Glucose 114 H (70-99(Fasting)) mg/dl POC Glucose (other) 125 H (70-99) mg/dl Calcium 9.3 (8.6-10.3) mg/dl POC Ioniz Calcium Radha 1.10 L (1.12-1.32) mmol/l Total Bilirubin 1.3 H (0.2-1.0) mg/dl AST 22 (13-39) U/L ALT 6 L (7-52) U/L Alkaline Phosphatase 177 H (34-104) U/L Troponin I High Sens 177.8 H* 148.9 H* (0-14) pg/ml Total Protein 7.1 (6.0-8.3) gm/dl Albumin 4.3 (3.4-5.0) gm/dl Globulin 2.8 (2.5-4.0) gm/dl Albumin/Globulin Ratio 1.5 (0.9-2) Lipase 9 L (11-82) U/L Urine Color Urine Appearance (Clear) Urine pH (4.5-7.5) Ur Specific [place] (1.000-1.030) Urine Protein (Negative) Urine Glucose (UA) (Negative) Urine Ketones (Negative) Urine Blood (Negative) Urine Nitrite (Negative) Urine Bilirubin (Negative) Urine Urobilinogen (Negative) Ur Leukocyte Esterase (Negative) 05/27/24 Range/Units 17:47 WBC (4.8-10.8) K/ul RBC (4.20-5.40) M/uL Hgb (12.0-16.0) g/dl POC Hgb (12.0-16.0) g/dl Hct (37.0-47.0) % POC Hct (37-47) % MCV (80.0-100.0) fL MCH (25.0-34.0) pg MCHC (32.0-36.0) g/dL RDW Std Deviation (36.4-46.3) fL RDW Coeff of Ahsan (11.5-14.5) % Plt Count (130-400) K/uL MPV (9.4-12.4) fL Immature Gran % (Auto) % Neut % (Auto) % Lymph % (Auto) % Divide % (Auto) % Eos % (Auto) % Baso % (Auto) % Neut # (Auto) (1.40-6.50) K/uL Lymph # (Auto) (1.20-3.40) K/uL Divide # (Auto) (0.11-0.59) K/uL Eos # (Auto) (0.00-0.50) K/uL Baso # (Auto) (0.00-0.20) K/uL Immature Gran # (Auto) (0.01-0.20) K/uL PT (9.0-12.0) Seconds INR (0.9-1.1) APTT (21-31) Seconds PTT Ratio POC Sodium (135-144) mmol/L Sodium (136-145) mmol/L POC Potassium (3.3-5.0) mmol/L Potassium (3.5-5.1) mmol/L POC Chloride (101-112) mmol/L Chloride (98-107) mmol/L Carbon Dioxide (21-32) mmol/L POC Total CO2 (24-31) mmol/L Anion Gap (3-11) POC Anion Gap (16-25) mmol/L POC BUN (7-18) mg/dl BUN (6-23) mg/dl Creatinine (0.6-1.2) mg/dl POC Creatinine (0.6-1.3) mg/dl Est Cr Clr Drug Dosing ml/min eGFR BUN/Creatinine Ratio (10-20) Glucose (70-99(Fasting)) mg/dl POC Glucose (other) (70-99) mg/dl Calcium (8.6-10.3) mg/dl POC Ioniz Calcium Radha (1.12-1.32) mmol/l Total Bilirubin (0.2-1.0) mg/dl AST (13-39) U/L ALT (7-52) U/L Alkaline Phosphatase (34-104) U/L Troponin I High Sens (0-14) pg/ml Total Protein (6.0-8.3) gm/dl Albumin (3.4-5.0) gm/dl Globulin (2.5-4.0) gm/dl Albumin/Globulin Ratio (0.9-2) Lipase (11-82) U/L Urine Color Yellow Urine Appearance Clear (Clear) Urine pH 8.0 H (4.5-7.5) Ur Specific [place] 1.006 (1.000-1.030) Urine Protein Negative (Negative) Urine Glucose (UA) Negative (Negative) Urine Ketones Negative (Negative) Urine Blood Negative (Negative) Urine Nitrite Negative (Negative) Urine Bilirubin Negative (Negative) Urine Urobilinogen Negative (Negative) Ur Leukocyte Esterase Negative (Negative) Administered Medications Fentanyl Citrate (Fentanyl Citrate Pf 100 Mcg/2 Ml Vial) 50 mcg IV Q15M PRN PRN Reason: Pain Stop: 06/10/24 13:34 Last Admin: 05/27/24 13:59 Dose: 50 mcg Documented By: JUAN Discontinued Medications Ondansetron HCl (Ondansetron Inj 2 Mg/Ml 2 Ml Vial) 4 mg IV NOW STA Stop: 05/27/24 13:36 Last Admin: 05/27/24 13:57 Dose: 4 mg Documented By: JUAN Imaging Data Attestation: I personally reviewed and interpreted this imaging study as follows: My Impression: CT of the brain was obtained in the emergency department. My interpretation is no intracranial hemorrhage or mass effect, final report below. CT of the chest was obtained. My interpretation is diffuse increased interstitial prominence, final report below. Radiologist's Impression: Abdomen/Pelvis CT 05/27/24 13:[address] WITHOUT CONTRAST HISTORY: fall TECHNIQUE: Multiaxial CT images of the abdomen and pelvis were performed without contrast. A dose lowering technique was utilized adhering to the principles of ALARA. COMPARISON STUDY: 06/13/2022 FINDINGS: ABDOMEN: Gallbladder is surgically absent. Liver, spleen, pancreas, adrenal glands, and kidneys show no evidence of acute injury on this noncontrast exam. There are scattered atherosclerotic calcifications. No abdominal aortic aneurysm. Pelvis: Uterus and adnexal regions are grossly unremarkable. Urinary bladder is nondistended. There is mild sigmoid diverticulosis. No acute diverticulitis. No free fluid, free air, or abscess. No hematoma seen. Osseous structures: Visualized left femoral gamma nail is stable compared with the 04/13/2024 x-ray and the proximal left femur fracture demonstrates no significant displacement. There is interval mild vertebral body compression fracture at T9. No other acute osseous finding seen. IMPRESSION: 1. Acute T9 vertebral body compression fracture. 2. No other acute findings seen. Otherwise as described. ACT 112: Negative or not required by law. The above report was generated using voice recognition software. It may contain grammatical, syntax or spelling errors. Electronically signed by: Dre Campbell M.D. 05/27/2024 2:[address] 05/27/24 13:35 CT chest diagnostic wo con CLINICAL HISTORY: 79 years-old Female with fall. Acute chest trauma status post fall TECHNIQUE: Multiaxial CT images of the chest were performed without contrast. A dose lowering technique was utilized adhering to the principles of ALARA. COMPARISON: CT abdomen and pelvis and lumbar spine studies of same day FINDINGS: No dominant thyroid nodule. Calcified left hilar lymph nodes compatible with prior granulomatous disease. Cardiomegaly with mitral annular and extensive coronary artery calcifications. No thoracic aortic aneurysm. Main pulmonary artery measures up to 4.1 cm compatible with pulmonary arterial hypertension. Trace pleural effusions. Intralobular and bronchial wall thickening with intermixed groundglass densities and mild bibasilar atelectasis. 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 Cholecystectomy. Peripherally calcified likely benign right breast lesion. Anasarca. Degenerative changes of the shoulders and spine. Acute superior endplate compression deformity at T9 with 3 mm retropulsion and approximately 20% vertebral body height loss. No definite fracture extension into the posterior elements. Mild paravertebral edema. Healed chronic fracture deformity of the sternum. IMPRESSION: 1. Acute T9 superior endplate compression deformity/burst fracture with 3 mm retropulsion and mild paravertebral edema. 2. No acute rib fracture or pneumothorax. 3. Cardiomegaly with pulmonary edema and trace pleural effusions. 4. Pulmonary arterial hypertension. 5. Please refer to the same day CT abdomen and pelvis study for additional findings. ACT 112: Negative or not required by law. Electronically signed by: Kvng Saenz M.D. 05/27/2024 2:[address] 05/27/24 13:36 CT cervical spine wo con CT DOSE: 2524.30mGy*cm CLINICAL HISTORY: Trauma. Ground-level fall COMPARISON: None TECHNIQUE: Multiple axial CT images of the cervical spine were obtained without contrast. Sagittal and coronal reconstructions were done. A dose lowering technique was utilized adhering to the principles of ALARA. FINDINGS: There is no acute traumatic cervical spine injury identified. There is no fracture or traumatic malalignment. The prevertebral soft tissues are not swollen. The atlantoaxial articulation and the odontoid are intact. There is a unilateral right-sided facet fusion at C3-4. There is multilevel cervical spondylosis and facet arthrosis. There is a nodular thyroid gland with a solid nodule projecting from the lower pole the left lobe. Consider correlation with thyroid ultrasound on elective procedure. IMPRESSION: No acute traumatic cervical spine injury. Multinodular thyroid consider elective thyroid ultrasound. ACT 112: Negative or not required by law. The above report was generated using voice recognition software. It may contain grammatical, syntax or spelling errors. Electronically signed by: Keely Gallardo M.D. 05/27/2024 2:30 PM Chest X-Ray 05/27/24 13:36 XR chest 1V portable CLINICAL HISTORY: Trauma COMPARISON STUDY: 04/13/2024 FINDINGS: There is stable cardiomegaly with mild pulmonary vascular congestion. There is mild pulmonary interstitial prominence. There is no pulmonary consolidation or pleural effusion. No pneumothorax. Stable old fracture proximal left humerus. IMPRESSION: 1. Mild CHF. 2. No other acute findings seen. ACT 112: Negative or not required by law. Electronically signed by: Dre Campbell M.D. 05/27/2024 2:[address] 05/27/24 13:36 CT head/brain wo con CLINICAL HISTORY: 79 years-old Female with trauma. Acute head trauma TECHNIQUE: Multiple axial CT images of the head were obtained without contrast. A dose lowering technique was utilized adhering to the principles of ALARA. COMPARISON: None. FINDINGS: No acute intracranial hemorrhage, midline shift, intracranial mass, hydrocephalus, territorial ischemia or abnormal extra-axial collection. Mineralization of the basal ganglia. Involutional changes with chronic microvascular ischemic disease. Calcifications of the dentate nuclei are also seen. The calvarium is intact. The paranasal sinuses, mastoid air cells, and middle ear cavities are clear. IMPRESSION: No acute intracranial abnormality. ACT 112: Negative or not required by law. The above report was generated using voice recognition software. It may contain grammatical, syntax or spelling errors. Electronically signed by: Kvng Saenz M.D. 05/27/2024 2:[address] 05/27/24 13:36 CT lumbar spine wo con CLINICAL HISTORY: trauma COMPARISON STUDY: 06/13/2022 FINDINGS: There is diffuse degenerative disc disease. There is mild retrolisthesis of L2 on 3, L3 on 4, and L4 on 5 and grade 1 anterolisthesis of L5 on S1, stable. No lumbar spine fracture seen. There is stable mild scoliosis. IMPRESSION: No lumbar spine fracture seen. ACT 112: Negative or not required by law. Electronically signed by: Dre Campbell M.D. 05/27/2024 2:47 PM Hip/Pelvis X-Ray 05/27/24 13:38 XR hip LT 2V w pelvis CLINICAL HISTORY: fall, recent surgery COMPARISON: 04/28/2024 FINDINGS: Left femoral gamma nail and left knee prosthesis show no hardware complication. Left proximal femur fracture remains nondisplaced. No interval fracture or dislocation seen. IMPRESSION: 1. No interval fracture seen. 2. Stable alignment at the proximal left femur fracture. ACT 112: Negative or not required by law. Electronically signed by: Dre Campbell M.D. 05/27/2024 2:04 PM Discharge Plan Visit Data Chief Complaint: Fall Stated Complaint: INJURY ALERT, FALL ED Provider: Joseluis Russell Discharge Problem: Acute non-ST elevation myocardial infarction (NSTEMI), Fall, Elevated WBC count, Closed compression fracture of thoracic vertebra, Chest wall contusion Patient Disposition: Being Evaluated by Hospitalist Forms Stand Alone Forms: [facility] Prescriptions Prescriptions: No Action hydroxyurea 500 mg Capsule 500 mg PO QAM Qty: 30 0RF atorvastatin 20 mg Tablet 20 mg PO QAM Qty: 30 0RF Rx Instructions: Last filled 04/2023 x15 day supply, prior to was consistently filled for 90 day supplies calcium carbonate-vitamin D3 600 mg-5 mcg (200 unit) Tablet 1 tab PO BID Qty: 60 0RF Rx Instructions: Unable to verify OTC meds at this date/time. acetaminophen 650 mg Tablet Extended Release 650 mg PO QID Qty: 100 0RF Rx Instructions: Unable to verify OTC meds at this date/time. cyanocobalamin (vitamin B-12) [Vitamin B-12] 500 mcg Tablet 500 mcg PO QAM Qty: 30 0RF Rx Instructions: Unable to verify OTC meds at this date/time. gabapentin 300 mg capsule 300 mg PO TID Qty: 90 0RF omeprazole 20 mg Capsule,Delayed Release(Dr/Ec) 20 mg PO QAM Qty: 30 0RF hydroxyzine HCl 10 mg Tablet 10 mg PO QID PRN (Reason: Itching) Qty: 30 0RF fluticasone propionate 50 mcg/actuation Model,Suspension 1 spray INTRANASAL BID PRN (Reason: Congestion) Qty: 1 0RF Rx Instructions: Unable to verify OTC meds at this date/time. Eliquis 5 mg Tablet 5 mg PO BID Qty: 60 0RF furosemide 40 mg tablet 20 mg PO DAILY PRN (Reason: swelling) lorazepam 0.5 mg tablet 0.5 mg PO BID PRN (Reason: Anxiety) loratadine 10 mg tablet 10 mg PO DAILY Rx Instructions: Unable to verify OTC meds at this date/time. albuterol sulfate 90 mcg/actuation Hfa Aerosol Inhaler 2 puff INHALATION Q6H PRN (Reason: cough or wheezing) diclofenac sodium 1 % Gel 2 g TOPICAL QID PRN (Reason: Pain) Rx Instructions: apply to single elbow, wrist or hand; for hand includes palm/fingers/back of hand metformin 500 mg tablet 500 mg PO BID olmesartan [Benicar] 5 mg Tablet 5 mg PO QAM Referrals Referrals: Roby Chandra MD [Primary Care Provider] -
[2024-05-27] MEDS: ONDANSETRON INJ 2 MG/ML 2 ML VIAL IV STA (13:57)
[2024-05-27] MEDS: fentaNYL citrate PF 100 MCG/2 ML VIAL IV PRN (13:59)
--- NOTE | 2024-05-27 14:04 | XRay Report ---
XR chest 1V portable CLINICAL HISTORY: Trauma COMPARISON STUDY: 04/13/2024 FINDINGS: There is stable cardiomegaly with mild pulmonary vascular congestion. There is mild pulmona ry interstitial prominence. There is no pulmonary consolidation or pleural effusion. No pneumothorax. Stable old fracture proximal left humerus. IMPRESSION: 1. Mild CHF. 2. No other acute findings seen. ACT 112: Negative or not required by law. Electronically signed by: Dre Campbell M.D. 05/27/2024 2:02 PM
--- NOTE | 2024-05-27 14:05 | XRay Report ---
XR hip LT 2V w pelvis CLINICAL HISTORY: fall, recent surgery COMPARISON: 04/28/2024 FINDINGS: Left femoral gamma nail and left knee prosthesis show no hardware complication. Left proxi mal femur fracture remains nondisplaced. No interval fracture or dislocation seen. IMPRESSION: 1. No interval fracture seen. 2. Stable alignment at the proximal left femur fracture. ACT 112: Negative or not required by law. Electronically signed by: Dre Campbell M.D. 05/27/2024 2:04 PM
[2024-05-27 14:06] LABS: iSTAT Creatinine 2.3 mg/dl (0.6-1.3); iSTAT Ionized Calcium 1.1 mmol/l (1.12-1.32); iSTAT Potassium 3.2 mmol/L (3.3-5.0)
[2024-05-27 14:10] LABS: INR 1.2 (0.9-1.1); Partial Thromboplastin Ratio 1.2; Partial Thromboplastin Time 33 Seconds (21-31); Prothrombin Time 12.4 Seconds (9.0-12.0)
[2024-05-27 14:19] LABS: Albumin Level 4.3 gm/dl (3.4-5.0); Bilirubin,Total 1.3 mg/dl (0.2-1.0); Calcium 9.3 mg/dl (8.6-10.3); Potassium 3.3 mmol/L (3.5-5.1)
[2024-05-27 14:21] LABS: Basophils # (auto) 0.34 K/uL (0.00-0.20); Basophils % (auto) 1.1 %; Eosinophils # (auto) 0.41 K/uL (0.00-0.50); Eosinophils % (auto) 1.4 %; Hematocrit (blood only) 39.6 % (37.0-47.0); Hemoglobin 12.3 g/dl (12.0-16.0); Immature Granulocytes # (auto) 0.66 K/uL (0.01-0.20); Immature Granulocytes % (auto) 2.2 %; Lymphocytes # (auto) 1.24 K/uL (1.20-3.40); Lymphocytes % (auto) 4.2 %; Mean Corpuscular Hemoglobin 31.5 pg (25.0-34.0); Mean Corpuscular Hgb Conc 31.1 g/dL (32.0-36.0); Mean Corpuscular Volume 101.3 fL (80.0-100.0); Mean Platelet Volume 12.9 fL (9.4-12.4); Monocytes # (auto) 0.91 K/uL (0.11-0.59); Neutrophils % (auto) 88.1 %; Platelet Count 570 K/uL (130-400); RDW Coefficient of Variation 16.3 % (11.5-14.5); RDW Standard Deviation 60.5 fL (36.4-46.3); Red Blood Count 3.91 M/uL (4.20-5.40); White Blood Count 29.86 K/ul (4.8-10.8)
[2024-05-27 14:25] LABS: Albumin Globulin Ratio 1.5 (0.9-2); BUN Creatinine Ratio 16.4 (10-20); Creatinine Clr Calc Pharmacy 57.4 ml/min; Globulin 2.8 gm/dl (2.5-4.0); Total Protein 7.1 gm/dl (6.0-8.3)
--- NOTE | 2024-05-27 14:27 | CT Scan Report ---
CT head/brain wo con CLINICAL HISTORY: 79 years-old Female with trauma. Acute head trauma TECHNIQUE: Multiple axial CT images of the head were obtained without contrast. A dose lowering tech nique was utilized adhering to the principles of ALARA. COMPARISON: None. FINDINGS: No acute intracranial hemorrhage, midline shift, intracranial mass, hydrocephalus, territorial ischem ia or abnormal extra-axial collection. Mineralization of the basal ganglia. Involutional changes with chronic microvascular ischemic disease. Calcifications of the dentate nuclei are also seen. The calvarium is intact. The paranasal sinuses, mastoid air cells, and middle ear cavities are clear . IMPRESSION: No acute intracranial abnormality. ACT 112: Negative or not required by law. The above report was generated using voice recognition software. It may contain grammatical, syntax o r spelling errors. Electronically signed by: Kvng Saenz M.D. 05/27/2024 2:26 PM
[2024-05-27 14:28] LABS: Troponin I High Sensitivity 177.8 pg/ml (0-14)
--- NOTE | 2024-05-27 14:32 | CT Scan Report ---
CT cervical spine wo con CT DOSE: 2524.30mGy*cm CLINICAL HISTORY: Trauma. Ground-level fall COMPARISON: None TECHNIQUE: Multiple axial CT images of the cervical spine were obtained without contrast. Sagittal an d coronal reconstructions were done. A dose lowering technique was utilized adhering to the principle s of ALARA. FINDINGS: There is no acute traumatic cervical spine injury identified. There is no fracture or traum atic malalignment. The prevertebral soft tissues are not swollen. The atlantoaxial articulation and t he odontoid are intact. There is a unilateral right-sided facet fusion at C3-4. There is multilevel c ervical spondylosis and facet arthrosis. There is a nodular thyroid gland with a solid nodule projecting from the lower pole the left lobe. Co nsider correlation with thyroid ultrasound on elective procedure. IMPRESSION: No acute traumatic cervical spine injury. Multinodular thyroid consider elective thyroid ultrasound. ACT 112: Negative or not required by law. The above report was generated using voice recognition software. It may contain grammatical, syntax o r spelling errors. Electronically signed by: Keely Gallardo M.D. 05/27/2024 2:30 PM
--- NOTE | 2024-05-27 14:47 | CT Scan Report ---
CT chest diagnostic wo con CLINICAL HISTORY: 79 years-old Female with fall. Acute chest trauma status post fall TECHNIQUE: Multiaxial CT images of the chest were performed without contrast. A dose lowering techni que was utilized adhering to the principles of ALARA. COMPARISON: CT abdomen and pelvis and lumbar spine studies of same day FINDINGS: No dominant thyroid nodule. Calcified left hilar lymph nodes compatible with prior granulom atous disease. Cardiomegaly with mitral annular and extensive coronary artery calcifications. No thor acic aortic aneurysm. Main pulmonary artery measures up to 4.1 cm compatible with pulmonary arterial hypertension. Trace pleural effusions. Intralobular and bronchial wall thickening with intermixed groundglass densi ties and mild bibasilar atelectasis. 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 Cholecyst ectomy. Peripherally calcified likely benign right breast lesion. Anasarca. Degenerative changes of t he shoulders and spine. Acute superior endplate compression deformity at T9 with 3 mm retropulsion an d approximately 20% vertebral body height loss. No definite fracture extension into the posterior daryn ments. Mild paravertebral edema. Healed chronic fracture deformity of the sternum. IMPRESSION: 1. Acute T9 superior endplate compression deformity/burst fracture with 3 mm retropulsion and mild pa ravertebral edema. 2. No acute rib fracture or pneumothorax. 3. Cardiomegaly with pulmonary edema and trace pleural effusions. 4. Pulmonary arterial hypertension. 5. Please refer to the same day CT abdomen and pelvis study for additional findings. ACT 112: Negative or not required by law. Electronically signed by: Kvng Saenz M.D. 05/27/2024 2:44 PM
--- NOTE | 2024-05-27 14:48 | CT Scan Report ---
CT lumbar spine wo con CLINICAL HISTORY: trauma COMPARISON STUDY: 06/13/2022 FINDINGS: There is diffuse degenerative disc disease. There is mild retrolisthesis of L2 on 3, L3 on 4, and L4 on 5 and grade 1 anterolisthesis of L5 on S1, stable. No lumbar spine fracture seen. There is stable mild scoliosis. IMPRESSION: No lumbar spine fracture seen. ACT 112: Negative or not required by law. Electronically signed by: Dre Campbell M.D. 05/27/2024 2:47 PM
--- NOTE | 2024-05-27 14:56 | CT Scan Report ---
ABDOMEN AND PELVIS CT WITHOUT CONTRAST HISTORY: fall TECHNIQUE: Multiaxial CT images of the abdomen and pelvis were performed without contrast. A dose lo wering technique was utilized adhering to the principles of ALARA. COMPARISON STUDY: 06/13/2022 FINDINGS: ABDOMEN: Gallbladder is surgically absent. Liver, spleen, pancreas, adrenal glands, and kidneys show no evidence of acute injury on this noncontrast exam. There are scattered atherosclerotic calcificati ons. No abdominal aortic aneurysm. Pelvis: Uterus and adnexal regions are grossly unremarkable. Urinary bladder is nondistended. There i s mild sigmoid diverticulosis. No acute diverticulitis. No free fluid, free air, or abscess. No hemat lyle seen. Osseous structures: Visualized left femoral gamma nail is stable compared with the 04/13/2024 x-ray and the proximal left femur fracture demonstrates no significant displacement. There is interval mild ve rtebral body compression fracture at T9. No other acute osseous finding seen. IMPRESSION: 1. Acute T9 vertebral body compression fracture. 2. No other acute findings seen. Otherwise as described. ACT 112: Negative or not required by law. The above report was generated using voice recognition software. It may contain grammatical, syntax o r spelling errors. Electronically signed by: Dre Campbell M.D. 05/27/2024 2:54 PM
--- NOTE | 2024-05-27 16:53 | History & Physical Report ---
Date of Service May 27, 2024 Assessment & Plan (1) Closed compression fracture of thoracic vertebra: (2) Fall: (3) Polycythemia vera: (4) Diabetes mellitus, type 2: (5) Paroxysmal atrial fibrillation: (6) GERD (gastroesophageal reflux disease): (7) Hypertension: (8) Dyslipidemia: Plan This is 79 y/o female with DM2, PAF on AC, HTN, dyslipidemia, HFpEF, hx bladder CA (s/p TURP 07/02), polycythemia vera (JAK2 positive), hx breast cancer, remote hx DVT, and other history as listed below who presents to the ED today with a fall. Work-up in the ED including singh CT per protocol revealed an acute T9 compression/burst fracture with 3 mm retropulsion and mild paravertebral edema but no other significant fracture noted. Specifically no interval fracture or hardware complication noted in the left hip. Pt was referred for admission for further management of fracture. #Fall - loss of balance, no syncope #Acute T9 compression/burst fracture - Admit to med surg - Pain control - scheduled acetaminophen, lido patch, prn oxycodone - Consult ortho spine for additional recommendations - Fall precautions - PT/OT evaluations #Leukocytosis - appears chronic #Diarrhea #Urinary symptoms - unclear acute vs. chronic - Trend CBC - Check stool for C. diff - Urine studies pending - Hold antibiotics for now due to afebrile, no clear source of infection #Polycythemia vera - Continue hydroxyurea #DM2 - Holding oral meds - Diabetic diet - Sliding scale insulin - BSG ACHS #PAF on chronic AC - Since H&H stable, no evidence of active bleeding will continue Eliquis and monitor #Hypertension #Dyslipidemia - Chronic, stable - continue home meds Pt seen and reviewed with collaborating physician, Dr. Cardoso. Plan of care discu ssed and as outlined above. Code status: full code DVT prophylaxis: Esperanza Nugent PA-C History of Present Illness Chief Complaint: "injury alert" Primary Care Provider: Roby Chandra MD This is 79 y/o female with DM2, PAF on AC, HTN, dyslipidemia, HFpEF, hx bladder CA (s/p TURP 07/02), polycythemia vera (JAK2 positive), hx breast cancer, remote hx DVT, and other history as listed below who presents to the ED today with a f all. She was admitted to this facility 04/13/24-04/16/24 after a fall with resultant left proximal femur fracture for which she underwent left hip ORIF. She was discharged to rehab and completed rehab only a week ago. She is currently staying with her daughter before ultimately planning to return home to [place] at [place]. This morning when she was trying to maneuver her walker out of the bathroom, she caught the tray of the walker on the doorway of the bathroom and lost her balance. She landed on her right side with her right ribs taking the brunt of the fall. No LOC, no head injury. She was unable to get off the floor so EMS called and was brought to the ED as an injury alert. Her main complaint of pain at present is right thoracic area - back > ribs. She is also concerned because she feels like she has had increased issue with her breathing since discharge from the hospital but relates this to not being able to use her inhaler or nasal spray at rehab because it was not ordered. Notes increased nasal congestion due to allergies. She has been having diarrhea for the last few weeks - using Imodium but only gives her transient relief. Was on course of cefdinir in late March for sinusitis and possible UTI. She reports increased urinary frequency, dysuria. Urinating every 2-3 hours at night. She denies fevers, chest pain, nausea, vomiting. Appetite has been decreased. She also notes increased stress over the last several weeks with resultant panic attacks since her had to be placed in memory care due to worsening dementia. Was given script for PRN Ativan, which she has used sparingly. Most recent dose was last night for panic attack symptoms. Pt's outpatient labs were reviewed - pt with chronic leukocytosis that has gradually worsened over the last year. She has a known history of polycythemia vera, JAK2 mutation positive, on hydroxyurea - follows with Dr. Stinson, prn phlebotomy for Hct >45/46. 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 Since discharge from the hospital last month, she saw Dr. Stinson and a possible dose reduction of Eliquis was discussed but pt was to talk to cardiology. Outpatient notes reviewed and cardiology preferred not to reduce dose due to concerns of the 2.5 mg being inadequate to prevent strokes/clot formation. Allergies Allergy/AdvReac Type Severity Reaction Status Date / Time adhesive tape Allergy Intermediate Hives Verified 04/14/24 09:05 Iodinated Contrast Media Allergy Intermediate HIVES TO Verified 04/14/24 09:05 RADIO OPAQUE CONTRAST iodine Allergy Intermediate HIVES- Verified 04/14/24 09:05 ALSO SEAFOOD-HIVES iothalamate sodium Allergy Intermediate Hives Verified 04/14/24 09:05 latex Allergy Intermediate HIVES Verified 04/14/24 09:05 morphine Allergy Intermediate hives Verified 04/14/24 09:05 hydrocodone AdvReac Mild BAD TASTE Verified 04/14/24 09:05 IN MOUTH lactose AdvReac Mild INTOLERANT Verified 04/14/24 09:05 sulindac [From Clinoril] AdvReac Mild "Out of Verified 04/14/24 09:05 body experience" Home Medications Medication Instructions Recorded Confirmed Type olmesartan 5 mg tablet (Benicar) 5 mg PO QAM 07/02/23 05/27/24 History acetaminophen 650 mg 650 mg PO QID #100 tabs 04/16/24 05/27/24 Rx tablet,extended release apixaban 5 mg tablet (Eliquis) 5 mg PO BID #60 tabs 04/16/24 05/27/24 Rx atorvastatin 20 mg tablet 20 mg PO QAM #30 tabs 04/16/24 05/27/24 Rx calcium 600 mg (as 1 tab PO BID #60 tabs 04/16/24 05/27/24 Rx carbonate)-vitamin D3 5 mcg (200 unit) tablet cyanocobalamin (vitamin B-12) 500 500 mcg PO QAM #30 tabs 04/16/24 05/27/24 Rx mcg tablet (Vitamin B-12) fluticasone propionate 50 1 spray intranasal BID PRN 04/16/24 05/27/24 Rx mcg/actuation nasal Congestion #1 g spray,suspension gabapentin 300 mg capsule 300 mg PO TID #90 caps 04/16/24 05/27/24 Rx hydroxyurea 500 mg capsule 500 mg PO QAM #30 caps 04/16/24 05/27/24 Rx hydroxyzine HCl 10 mg tablet 10 mg PO QID PRN Itching #30 tabs 04/16/24 05/27/24 Rx omeprazole 20 mg capsule,delayed 20 mg PO QAM #30 caps 04/16/24 05/27/24 Rx release albuterol sulfate 90 mcg/actuation 2 puff inhalation Q6H PRN cough or 05/27/24 05/27/24 History aerosol inhaler wheezing diclofenac sodium 1 % topical gel 2 g topical QID PRN Pain 05/27/24 05/27/24 History furosemide 40 mg tablet 20 mg PO DAILY PRN swelling 05/27/24 05/27/24 History loratadine 10 mg tablet 10 mg PO DAILY 05/27/24 05/27/24 History lorazepam 0.5 mg tablet 0.5 mg PO BID PRN Anxiety 05/27/24 05/27/24 History metformin 500 mg tablet 500 mg PO BID 05/27/24 05/27/24 History Past Med/Surg History Problem List (Updated 05/27/24 @ 20:00 by Lizette Nugent PA-C) Chest wall contusion (Acute) Closed compression fracture of thoracic vertebra (Acute) Elevated WBC count (Acute) Fall (Acute) Acute non-ST elevation myocardial infarction (NSTEMI) (Acute) S/P ORIF (open reduction internal fixation) fracture Leukocytosis (Acute) Polycythemia vera (Acute) History of atrial fibrillation (Acute) Fall (Acute) Fall Intertrochanteric fracture of left femur (Acute) Endometrial mass Bladder carcinoma TURBT- 06/2022 [place] Mass of bladder Bladder tumor Malignant neoplasm of upper-outer quadrant of right breast in female, 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 surgery + radiation >no limb restriction TMJ (temporomandibular joint disorder) hx locking History of migraine History of DVT (deep vein thrombosis) LLE following travel Hearing deficit BL LAW Hypertension Dyslipidemia Surgical History History of cystoscopy bladder biopsy, fulguration>09/2022 [place] History of dilatation and curettage endometrial fibroid removed History of hysteroscopy uterine fibroid removed History of transurethral resection of bladder tumor (TURBT) 06/11/2223 Grade 1 view, MAC 3, ETT 7. History of breast biopsy History of foot surgery Rt x 2 History of colonoscopy History of lumpectomy of right breast History of cataract surgery rt/left Status post blepharoplasty of both eyes History of facelift Hx laparoscopic cholecystectomy History of arthroplasty of left knee Family History Mother , 89yo;Oxygen dependent;"bowel leak", HTN No problems noted. Father , 68yo;smoker, [place], poor circulation No problems noted. Brother No problems noted. Son No problems noted. Daughter No problems noted. Other No family history of adverse response to anesthesia Social History Smoking Status: Former smoker Tobacco Type: Cigarettes Second Hand Exposure: Yes (as a child); Do You Dip or Chew Tobacco: No; Hx Alcohol Use: No Hx Substance Use: No Preferred Language: Icelandic Communication Ability: Effective Visual Impairment: No Limitations Hearing Ability: Hard of Hearing Beater Boss Required: No Beliefs That Will Affect Care: None Current Living Situation: Spouse Current Living Situation Comment[facility] Feels Safe at Home: Yes Assistive Devices: Cane Review of Systems Review of Systems: All systems reviewed & are unremarkable except as noted in Subjective Physical Exam Physical Exam: General: awake, alert, NAD but appears uncomfortable at times, frequently shifting position in bed. HEENT: no scleral icterus, moist oral mucosa Neck: supple, trachea midline Heart: RRR Lungs: CTA bilaterally on the anterior Abdomen: soft, NT, +BS Extremities: no pedal edema, distal pulses intact and equal Skin: left hip incision well-healed without signs of erythema or warmth Neurologic: OX3, no confusion or dysarthria, moving all extremities without focal deficit. Results & Data Results & Data Vital Signs (Past 12 Hours) Vital Signs Temp Pulse Pulse Resp BP BP Pulse Ox 05/27/24 16:00 81 18 157/117 H 97 05/27/24 15:00 78 21 162/88 H 92 05/27/24 14:30 83 05/27/24 14:19 89 16 96 05/27/24 14:19 83 16 166/96 H 96 05/27/24 14:18 89 16 170/93 H 96 05/27/24 13:30 83 20 168/95 H 05/27/24 13:27 36.7 C 90 20 176/96 H 92 O2 Del Method O2 Flow Rate 05/27/24 16:00 Nasal Cannula 2 05/27/24 15:00 Room Air 05/27/24 14:30 05/27/24 14:19 Room Air 05/27/24 14:19 Nasal Cannula 2 05/27/24 14:18 Nasal Cannula 2 05/27/24 13:30 05/27/24 13:27 Room Air Laboratory Results Lab Results 05/27/24 05/27/24 05/27/24 Range/Units 13:45 13:52 15:51 WBC 29.86 H (4.8-10.8) K/ul RBC 3.91 L (4.20-5.40) M/uL Hgb 12.3 (12.0-16.0) g/dl POC Hgb 15.0 (12.0-16.0) g/dl Hct 39.6 (37.0-47.0) % POC Hct 44 (37-47) % MCV 101.3 H (80.0-100.0) fL MCH 31.5 (25.0-34.0) pg MCHC 31.1 L (32.0-36.0) g/dL RDW Std Deviation 60.5 H (36.4-46.3) fL RDW Coeff of Ahsan 16.3 H (11.5-14.5) % Plt Count 570 H (130-400) K/uL MPV 12.9 H (9.4-12.4) fL Immature Gran % (Auto) 2.2 % Neut % (Auto) 88.1 % Lymph % (Auto) 4.2 % Pickett % (Auto) 3.0 % Eos % (Auto) 1.4 % Baso % (Auto) 1.1 % Neut # (Auto) 26.30 H (1.40-6.50) K/uL Lymph # (Auto) 1.24 (1.20-3.40) K/uL Pickett # (Auto) 0.91 H (0.11-0.59) K/uL Eos # (Auto) 0.41 (0.00-0.50) K/uL Baso # (Auto) 0.34 H (0.00-0.20) K/uL Immature Gran # (Auto) 0.66 H (0.01-0.20) K/uL PT 12.4 H (9.0-12.0) Seconds INR 1.2 H (0.9-1.1) APTT 33 H (21-31) Seconds PTT Ratio 1.2 POC Sodium 140 (135-144) mmol/L Sodium 141 (136-145) mmol/L POC Potassium 3.2 L (3.3-5.0) mmol/L Potassium 3.3 L (3.5-5.1) mmol/L POC Chloride 99 L (101-112) mmol/L Chloride 100 (98-107) mmol/L Carbon Dioxide 32 (21-32) mmol/L POC Total CO2 29 (24-31) mmol/L Anion Gap 9 (3-11) POC Anion Gap 16.0 (16-25) mmol/L POC BUN 9 (7-18) mg/dl BUN 10 (6-23) mg/dl Creatinine 0.61 (0.6-1.2) mg/dl POC Creatinine 2.3 H (0.6-1.3) mg/dl Est Cr Clr Drug Dosing 57.4 ml/min eGFR 91.45 BUN/Creatinine Ratio 16.4 (10-20) Glucose 114 H (70-99(Fasting)) mg/dl POC Glucose (other) 125 H (70-99) mg/dl Calcium 9.3 (8.6-10.3) mg/dl POC Ioniz Calcium Radha 1.10 L (1.12-1.32) mmol/l Total Bilirubin 1.3 H (0.2-1.0) mg/dl AST 22 (13-39) U/L ALT 6 L (7-52) U/L Alkaline Phosphatase 177 H (34-104) U/L Troponin I High Sens 177.8 H* 148.9 H* (0-14) pg/ml Total Protein 7.1 (6.0-8.3) gm/dl Albumin 4.3 (3.4-5.0) gm/dl Globulin 2.8 (2.5-4.0) gm/dl Albumin/Globulin Ratio 1.5 (0.9-2) Lipase 9 L (11-82) U/L Diagnostic Findings Abdomen/Pelvis CT 05/27/24 13:[address] WITHOUT CONTRAST HISTORY: fall TECHNIQUE: Multiaxial CT images of the abdomen and pelvis were performed without contrast. A dose lowering technique was utilized adhering to the principles of ALARA. COMPARISON STUDY: 06/13/2022 FINDINGS: ABDOMEN: Gallbladder is surgically absent. Liver, spleen, pancreas, adrenal glands, and kidneys show no evidence of acute injury on this noncontrast exam. There are scattered atherosclerotic calcifications. No abdominal aortic aneurysm. Pelvis: Uterus and adnexal regions are grossly unremarkable. Urinary bladder is nondistended. There is mild sigmoid diverticulosis. No acute diverticulitis. No free fluid, free air, or abscess. No hematoma seen. Osseous structures: Visualized left femoral gamma nail is stable compared with the 04/13/2024 x-ray and the proximal left femur fracture demonstrates no significant displacement. There is interval mild vertebral body compression fracture at T9. No other acute osseous finding seen. IMPRESSION: 1. Acute T9 vertebral body compression fracture. 2. No other acute findings seen. Otherwise as described. ACT 112: Negative or not required by law. The above report was generated using voice recognition software. It may contain grammatical, syntax or spelling errors. Electronically signed by: Dre Campbell M.D. 05/27/2024 2:[address] 05/27/24 13:35 CT chest diagnostic wo con CLINICAL HISTORY: 79 years-old Female with fall. Acute chest trauma status post fall TECHNIQUE: Multiaxial CT images of the chest were performed without contrast. A dose lowering technique was utilized adhering to the principles of ALARA. COMPARISON: CT abdomen and pelvis and lumbar spine studies of same day FINDINGS: No dominant thyroid nodule. Calcified left hilar lymph nodes compatible with prior granulomatous disease. Cardiomegaly with mitral annular and extensive coronary artery calcifications. No thoracic aortic aneurysm. Main pulmonary artery measures up to 4.1 cm compatible with pulmonary arterial hypertension. Trace pleural effusions. Intralobular and bronchial wall thickening with intermixed groundglass densities and mild bibasilar atelectasis. 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 Cholecystectomy. Peripherally calcified likely benign right breast lesion. Anasarca. Degenerative changes of the shoulders and spine. Acute superior endplate compression deformity at T9 with 3 mm retropulsion and approximately 20% vertebral body height loss. No definite fracture extension into the posterior elements. Mild paravertebral edema. Healed chronic fracture deformity of the sternum. IMPRESSION: 1. Acute T9 superior endplate compression deformity/burst fracture with 3 mm retropulsion and mild paravertebral edema. 2. No acute rib fracture or pneumothorax. 3. Cardiomegaly with pulmonary edema and trace pleural effusions. 4. Pulmonary arterial hypertension. 5. Please refer to the same day CT abdomen and pelvis study for additional findings. ACT 112: Negative or not required by law. Electronically signed by: Kvng Saenz M.D. 05/27/2024 2:[address] 05/27/24 13:36 CT cervical spine wo con CT DOSE: 2524.30mGy*cm CLINICAL HISTORY: Trauma. Ground-level fall COMPARISON: None TECHNIQUE: Multiple axial CT images of the cervical spine were obtained without contrast. Sagittal and coronal reconstructions were done. A dose lowering technique was utilized adhering to the principles of ALARA. FINDINGS: There is no acute traumatic cervical spine injury identified. There is no fracture or traumatic malalignment. The prevertebral soft tissues are not swollen. The atlantoaxial articulation and the odontoid are intact. There is a unilateral right-sided facet fusion at C3-4. There is multilevel cervical spondylosis and facet arthrosis. There is a nodular thyroid gland with a solid nodule projecting from the lower pole the left lobe. Consider correlation with thyroid ultrasound on elective procedure. IMPRESSION: No acute traumatic cervical spine injury. Multinodular thyroid consider elective thyroid ultrasound. ACT 112: Negative or not required by law. The above report was generated using voice recognition software. It may contain grammatical, syntax or spelling errors. Electronically signed by: Keely Gallardo M.D. 05/27/2024 2:30 PM Chest X-Ray 05/27/24 13:36 XR chest 1V portable CLINICAL HISTORY: Trauma COMPARISON STUDY: 04/13/2024 FINDINGS: There is stable cardiomegaly with mild pulmonary vascular congestion. There is mild pulmonary interstitial prominence. There is no pulmonary consolidation or pleural effusion. No pneumothorax. Stable old fracture proximal left humerus. IMPRESSION: 1. Mild CHF. 2. No other acute findings seen. ACT 112: Negative or not required by law. Electronically signed by: Dre Campblel M.D. 05/27/2024 2:[address] 05/27/24 13:36 CT head/brain wo con CLINICAL HISTORY: 79 years-old Female with trauma. Acute head trauma TECHNIQUE: Multiple axial CT images of the head were obtained without contrast. A dose lowering technique was utilized adhering to the principles of ALARA. COMPARISON: None. FINDINGS: No acute intracranial hemorrhage, midline shift, intracranial mass, hydrocephalus, territorial ischemia or abnormal extra-axial collection. Mineralization of the basal ganglia. Involutional changes with chronic microvascular ischemic disease. Calcifications of the dentate nuclei are also seen. The calvarium is intact. The paranasal sinuses, mastoid air cells, and middle ear cavities are clear. IMPRESSION: No acute intracranial abnormality. ACT 112: Negative or not required by law. The above report was generated using voice recognition software. It may contain grammatical, syntax or spelling errors. Electronically signed by: Kvng Saenz M.D. 05/27/2024 2:[address] 05/27/24 13:36 CT lumbar spine wo con CLINICAL HISTORY: trauma COMPARISON STUDY: 06/13/2022 FINDINGS: There is diffuse degenerative disc disease. There is mild retrolis thesis of L2 on 3, L3 on 4, and L4 on 5 and grade 1 anterolisthesis of L5 on S1, stable. No lumbar spine fracture seen. There is stable mild scoliosis. IMPRESSION: No lumbar spine fracture seen. ACT 112: Negative or not required by law. Electronically signed by: Dre Campbell M.D. 05/27/2024 2:47 PM Hip/Pelvis X-Ray 05/27/24 13:38 XR hip LT 2V w pelvis CLINICAL HISTORY: fall, recent surgery COMPARISON: 04/28/2024 FINDINGS: Left femoral gamma nail and left knee prosthesis show no hardware complication. Left proximal femur fracture remains nondisplaced. No interval fracture or dislocation seen. IMPRESSION: 1. No interval fracture seen. 2. Stable alignment at the proximal left femur fracture. ACT 112: Negative or not required by law. Electronically signed by: Dre Campbell M.D. 05/27/2024 2:04 PM Medications Administered Fentanyl Citrate (Fentanyl Citrate Pf 100 Mcg/2 Ml Vial) 50 mcg IV Q15M PRN PRN Reason: Pain Stop: 06/10/24 13:34 Last Admin: 04/17/25 13:59 Dose: 50 mcg Documented By: JUAN Discontinued Medications Ondansetron HCl (Ondansetron Inj 2 Mg/Ml 2 Ml Vial) 4 mg IV NOW STA Stop: 05/27/24 13:36 Last Admin: 05/27/24 13:57 Dose: 4 mg Documented By: JUAN Supervising Physician Co-Signing Physician Notes 79-year-old lady with PMH of PAF on AC, polycythemia vera presents to the ED after a fall, back pain and noted to have T9 compression fracture in the imaging at the ED. Patient does appear to have chronic leukocytosis, no signs of acute infection/urinary analysis negative for UTI. Labs fairly at her baseline, potassium at 3.3, will replete. Troponin flat trended, likely demand ischemia in the setting of acute pain. Pt denies chest pain. Admitting imagings reviewed. T9 compression fracture noted, multi nodular thyroid noted.Recommend thyroid ultrasound as an outpatient. Mechanical fall/T9 fracture: Pain management, orthospine consult. PT/OT once orthospine evaluation. On exam: As above. I have seen and examined the patient and have discussed the case with the provider above. I agree with the assessment and plan as stated. Time spent independently: 20 min (1) Closed compression fracture of thoracic vertebra Encounter type: initial encounter Qualified Code(s): S22.000A - Wedge compression fracture of unspecified thoracic vertebra, initial encounter for closed fracture (2) Fall Encounter type: initial encounter Qualified Code(s): W19.XXXA - Unspecified fall, initial encounter (4) Diabetes mellitus, type 2 Diabetes mellitus complication status: with other specified complication Diabetes mellitus terminal clerk insulin use: without nursing home use Qualified Code(s): E11.69 - Type 2 diabetes mellitus with other specified complication (6) GERD (gastroesophageal reflux disease) Esophagitis presence: esophagitis presence not specified Qualified Code(s): K21.9 - Gastro-esophageal reflux disease without esophagitis (7) Hypertension Hypertension type: unspecified Qualified Code(s): I10 - Essential (primary) hypertension
--- NOTE | 2024-05-27 17:16 | Electrocardiogram Report ---
Test Reason : Blood Pressure : */* mmHG Vent. Rate : 85 BPM Atrial Rate : 85 BPM P-R Int : 132 ms QRS Dur : 74 ms QT Int : 414 ms P-R-T Axes : 64 -6 -36 degrees QTcB Int : 492 ms Normal sinus rhythm Prolonged QT Abnormal ECG When compared with ECG of 13-Apr-2024 12:45, T wave inversion more evident in Inferior leads T wave inversion now evident in Anterolateral leads QT has lengthened Confirmed by Roberto Paniagua ([id number]) on 05/27/2024 5:16:12 PM Referred By: Confirmed By: Roberto Paniagua
[2024-05-27 17:54] LABS: Appearance Urine Clear (Clear); Bilirubin Urine Negative (Negative); Blood Urine Negative (Negative); Color Urine Yellow; Glucose Urine UA Negative (Negative); Ketones Urine Negative (Negative); Leukocyte Esterase Urine Negative (Negative); Nitrite Urine Negative (Negative); Protein Urine Negative (Negative); Specific Gravity Urine 1.006 (1.000-1.030); Urobilinogen Urine Negative (Negative)
[2024-05-27] MEDS ORDERED: GLUCAGON FOR INJ 1 MG VIAL SQ PRN (18:02)
[2024-05-27] MEDS ORDERED: CARBOHYDRATES FOR HYPOGLYCEMIA PO PRN (18:02)
[2024-05-27] MEDS ORDERED: GLUCOSE 10 TAB/TUBE PO PRN (18:02)
[2024-05-27] MEDS ORDERED: GLUCOSE 40% GEL 15 GM TUBE PO PRN (18:02)
[2024-05-27] MEDS ORDERED: DEXTROSE 50% 50 ML SYRINGE IV PRN (18:02)
[2024-05-27] MEDS: LIDOCAINE 5% 1 PATCH TD SCH (18:56)
[2024-05-27] MEDS: ACETAMINOPHEN 500 MG TAB PO SCH (18:56)
[2024-05-27] MEDS ORDERED: ALBUTEROL HFA 8 GM INHALER INH PRN (20:42)
[2024-05-27] MEDS ORDERED: hydrOXYzine HCl 10 MG TAB PO PRN (20:42)
[2024-05-27] MEDS: INSULIN ASPART PER UNIT CHARGE SC SCH (20:58)
[2024-05-27] MEDS: POTASSIUM CHLORIDE CRTAB 20 MEQ TABCR PO STA (21:07)
[2024-05-27] MEDS: FLUTICASONE PROPIONATE NA SPR 16 GM BTL SCH (21:08)
[2024-05-27] MEDS: APIXABAN 5 MG TABLET PO SCH (21:08)
[2024-05-27] MEDS: GABAPENTIN 300 MG CAP PO SCH (21:09)
[2024-05-27] MEDS: CALCIUM 600MG + VIT D 400 IU TAB PO SCH (21:09)
--- OUTSIDE RECORDS SUMMARY | 2024-05-27 21:11 | External Medical Summary ---
Author Name Unknown Address Unknown Organization [id number] [address] [place] [id number] Laboratory Report Ordering Provider Test Date Status MEGHAN SINGLETON 05/15/2024 11:20:00 Final Observation Date Value Abnormality Reference (Units ) Status Adenovirus DNA [Presence] in Nasopharynx by ZONIA with non-probe detection 05/15/2024 11:20:00 Negative Negative Final Human coronavirus 229E RNA [Presence] in Nasopharynx by ZONIA with non-probe detection 05/15/2024 11:20:00 Negative Negative Final Human coronavirus HKU1 RNA [Presence] in Nasopharynx by ZONIA with non-probe detection 05/15/2024 11:20:00 Negative Negative Final Human coronavirus NL63 RNA [Presence] in Nasopharynx by ZONIA with non-probe detection 05/15/2024 11:20:00 Negative Negative Final Human coronavirus OC43 RNA [Presence] in Nasopharynx by ZONIA with non-probe detection 05/15/2024 11:20:00 Positive Abnormal Negative Final Coronavirus OC43 detected by PCR (amplified probe). SARS-CoV-2 (COVID-19) RNA [P resence] in Nasopharynx by ZONIA with non-probe detection 05/15/2024 11:20:00 Negative Negative Final Human metapneumovirus RNA [P resence] in Nasopharynx by ZONIA with non-probe detection 05/15/2024 11:20:00 Negative Negative Final Rhinovirus+Enterovirus RNA [ Presence] in Nasopharynx by ZONIA with non-probe detection 05/15/2024 11:20:00 Negative Negative Final Influenza virus A RNA [Prese nce] in Nasopharynx by ZONIA with non-probe detection 05/15/2024 11:20:00 Negative Negative Final Influenza virus B RNA [Prese nce] in Nasopharynx by ZONIA with non-probe detection 05/15/2024 11:20:00 Negative Negative Final Parainfluenza virus 1 RNA [P resence] in Nasopharynx by ZONIA with non-probe detection 05/15/2024 11:20:00 Negative Negative Final Parainfluenza virus 2 RNA [P resence] in Nasopharynx by ZONIA with non-probe detection 05/15/2024 11:20:00 Negative Negative Final Parainfluenza virus 3 RNA [P resence] in Nasopharynx by ZONIA with non-probe detection 05/15/2024 11:20:00 Negative Negative Final Parainfluenza virus 4 RNA [P resence] in Nasopharynx by ZONIA with non-probe detection 05/15/2024 11:20:00 Negative Negative Final Respiratory syncytial virus RNA [Presence] in Nasopharynx by ZONIA with non-probe detection 05/15/2024 11:20:00 Negative Negative F inal Bordetella pertussis.pertuss is toxin promoter region [Presence] in Nasopharynx by ZONIA with non-probe detection 05/15/2024 11:20:00 Negative Negative Final Chlamydophila pneumoniae DNA [Presence] in Nasopharynx by ZONIA with non-probe detection 05/15/2024 11:20:00 Negative Negative Final Mycoplasma pneumoniae DNA [P resence] in Nasopharynx by ZONIA with non-probe detection 05/15/2024 11:20:00 Negative Negative Final Bordetella parapertussis IS1 001 DNA [Presence] in Nasopharynx by ZONIA with non-probe detection 05/15/2024 11:20:00 Negative Negative F inal The primers that detect Rhin ovirus may cross react with some Enterorviruses. The validation of bronchial specimens, tracheal aspirates, and throats for this assay was developed and performance characteristics determined by [employer]. �The validation of alternate specimen types has not been cleared or approved by the [place] Food and Drug Administration (FDA). �It has been determined that such clearance or approval is not necessary. Performing Location [facility] - [facility] [place] [id number]
--- OUTSIDE RECORDS SUMMARY | 2024-05-27 21:11 | External Medical Summary | Summary of Care ---
Author Name Unknown Organization [facility] Address [address] [facility] [place] [address] Phone [phone] Care Team Providers Care Temper Mill Roller Name Role Phone Roby Chandra MD Primary Care Provider Reason for Visit * Reason Onset Date Comments Hospital Follow-Up 05/24/2024 LE Encounter Details Date Type Department Care Team (Late st Contact Info) Description 05/24/2024 Telephone [facility], [address] [place], [place] [id number] Maki Blevins, RN Hospital Follow-Up (LE) Allergies Active Allergy Reactions Criticality Noted Date Comments Adhesive Tape Hives High 07/15/2023 Amoxicillin Rash 02/06/2023 Sulindac Nausea/vomiting 08/09/2013 Pt also c/o dizziness. Not a true allergy. Tolerates diclofenac with no problem. Hydrocodone 08/03/2020 Other reaction(s): leaves a metal taste in mouth Iodinated Contrast Media 07/20/2012 Reaction 40 years ago, IV contrast Lactose Low 07/15/2023 Other Reaction(s): INTOLERANT Latex Hives High 07/15/2023 Morphine Hives High 07/15/2023 documented as of this encounter (statuses as of 05/25/2024) Medications PRILOSEC 20 MG PO CPDR Take 1 Capsule by mouth in the morning. Can take extra cap for "heartburn". Active Calcium Carbonate-Vit D-Min (GNP CALCIUM 1200) 6612-6369 MG-UNIT CHEW Take 1 Capsule by mouth daily. Takes capsule not chews 9 Active Magnesium 500 MG Oral Capsule Take 1 Capsule by mouth in the morning. Active Vitamin B 12 500 MCG Oral Tablet Take 1 Tablet by mouth every morning. Active OneTouch Ultra In Vitro Strip (Glucose Blood)Indications :Type 2 diabetes mellitus with hemoglobin A1c goal of less than 7.0% (FORMERLY [facility]) TEST TWICE A DAY FOR TYPE 2 DIABETES 200 Strip 3 3 Active Diclofenac Sodium 1 % External Gel (Voltaren) APPLY TOPICALLY TO AFFECTED AREA 2 G IN THE MORNING AND 2 G AT NOON AND 2 G IN THE EVENING AND 2 G BEFORE BEDTIME. 100 g 5 3 Active Albuterol Sulfate HFA 108 (90 Base) MCG/ACT Inhalation Aerosol SolutionIndicatio ns:Mild intermittent asthma without complication Inhale 2 Puffs by mouth every 6 hours as needed for Cough or Wheezing. 8.5 g 5 4 Active Fluticasone Propionate 50 MCG/ACT Nasal Suspension (Flonase)Indicati ons:Post-tussive emesis Administer 2 Sprays into each nostril daily. 48 mL 1 4 Active Apixaban 5 MG Oral Tablet (Eliquis) Take 1 Tablet by mouth in the morning and 1 Tablet before bedtime. TAKE 1 TABLET BY MOUTH IN THE MORNING AND BEFORE BEDTIME. 60 Tablet 5 4 Active Acetaminophen ER 650 MG Oral Tablet Extended Release (Tylenol 8 Hour) Take 1 Tablet by mouth in the morning and 1 Tablet at noon and 1 Tablet before bedtime. Active OneTouch Delica Plus [id number] ons:Routine medical exam USE TO TEST BLOOD SUGAR ONCE DAILY. DX E11.9 100 Each 3 4 Active Meclizine HCl 25 MG Oral Tablet (Antivert)Indicat ions:Dizziness Take 1 Tablet by mouth 3 times a day as needed for Dizziness. 30 Tablet 1 4 Active Mupirocin 2 % External Ointment (Bactroban)Indica tions:Encounter for postoperative wound check Apply to affected area on lower leg three times per day for 10-14 days 30 g 1 4 Active OneTouch UltraSoft Lancets To check blood sugar as often as twice daily. Dx: E11.9 100 Each 3 4 Active OneTouch Verio In Vitro Strip (Glucose Blood) To check blood sugar as often as twice daily. Dx: E11.9 100 Strip 11 4 Active OneTouch Verio w/Device KitIndications:Ty pe 2 diabetes mellitus with hemoglobin A1c goal of less than 7.0% (FORMERLY [facility]) Use as directed. Use to check blood sugar up to twice daily. Dx: E11.9. 1 Kit 4 Active Gabapentin 300 MG Oral Capsule (Neurontin) Take 1 Capsule by mouth in the morning and 1 Capsule at noon and 1 Capsule before bedtime. 270 Capsule 1 4 Active Atorvastatin Calcium 20 MG Oral Tablet (Lipitor) Take 1 Tablet by mouth in the morning. 90 Tablet 1 4 Active Olmesartan Medoxomil 5 MG Oral Tablet (Benicar) Take 5 mg by mouth in the morning. In the morning.. 90 Tablet 3 5 Active Hydroxyurea 500 MG Oral Capsule (Hydrea)Indicatio ns:Polycythemia vera (HCC),Thrombocyto sis TAKE 1 CAPSULE BY MOUTH EVERY DAY 90 Capsule 3 5 Active OneTouch UltraSoft Lancets To check blood sugar as often as twice daily. Dx: E11.9 100 Each 3 5 Active OneTouch Verio In Vitro Strip (Glucose Blood) To check blood sugar as often as twice daily. Dx: E11.9 100 Strip 11 5 Active hydrOXYzine HCl 10 MG Oral Tablet (Atarax) TAKE ONE TABLET BY MOUTH, UP TO FOUR TIMES A DAY, NEEDED FOR ITCHINESS. 40 Tablet 2 5 Active Hydrocortisone 2.5 % External OintmentIndicatio ns:Skin neoplasm Apply twice daily to affected areas on face and neck up to 2 weeks, then taper to weekends only Fri-Sun as needed 30 g 1 5 Active Furosemide 20 MG Oral Tablet (Lasix)Indication s:Chronic heart failure with preserved ejection fraction (HCC) Take 1 Tablet by mouth in the morning. as needed -swelling. 90 Tablet 3 5 Active metFORMIN HCl ER 500 MG Oral Tablet Extended Release 24 Hour (Glucophage XR)Indications:Ty pe 2 diabetes mellitus with hemoglobin A1c goal of less than 7.0% (HCC) TAKE 1 TABLET BY MOUTH TWICE A DAY 180 Tablet 1 Active LORazepam 0.5 MG Oral Tablet (Ativan) Take 1 Tablet by mouth 2 times a day as needed for Anxiety. Do not drive while taking this medication. 30 Tablet 5 Active documented as of this encounter (statuses as of 05/25/2024) Active Problems Problem Noted Date Diagnosed Date Chronic heart failure with preserved ejection fr action 02/20/2024 Malignant neoplasm of urinary bladder 02/20/2024 Paroxysmal atrial fibrillation 09/17/2022 Endometrial mass 07/12/2022 Bladder tumor 07/12/2022 PMB (postmenopausal bleeding) 07/12/2022 CARITO-2 gene mutation 02/21/2021 Mixed dyslipidemia 02/20/2021 History of breast cancer 02/20/2021 Slac (scapholunate advanced collapse) of wrist, right 07/14/2020 Primary osteoarthritis of fi rst carpometacarpal joint of one hand 07/14/2019 Primary osteoarthritis of right wrist 07/14/2019 History of deep vein thrombosis (DVT) of lower e xtremity 02/13/2019 Overview (02/13/2019): 20+ya with flying Thrombocytosis 06/30/2017 Polycythemia vera 06/30/2017 HTN, goal below 140/90 03/28/2011 Personal history of malignant neoplasm of skin 1 Overview (12/06/2010): Hx BCC L neck 09/27/1996 Type 2 diabetes mellitus wit h hemoglobin A1c goal of less than 7.0% 12/08/2008 Esophageal reflux 03/02/2004 documented as of this encounter (statuses as of 05/25/2024) Resolved Problems Problem Noted Date Diagnosed Date Resolved Date Chest pain 07/12/2022 05/12/2023 Malignant neoplasm of upper- outer quadrant of right breast in female, estrogen receptor positive 08/15/2020 01/01/2021 Ganglion cyst of dorsum of right wrist 07/14/2020 02/20/2021 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, estrogen receptor positive 09/03/2017 02/20/2021 Cancer Staging:Clinical: Unsigned Pathologic stage from 10/27/2017:Stage IA(pT1b, pN0, cM0, G1, ER: Positive, OH: Negative, HER2: Negative, Oncotype DX score: 22) - Signed by Anton Stinson MD on 10/27/2017 Type 2 diabetes mellitus wit h diabetic cataract 04/08/2017 02/20/2021 Right acute serous otitis media 04/02/2017 04/10/2018 Hx of actinic keratosis 06/18/2016 030 02/2018 Hx of basal cell carcinoma 06/18/2016 0 04/10/2018 HTN, goal below 130/80 07/24/201512/08 Overview: Per HTN Protocol Acute bronchitis, complicated 02/13/2015 06/23/2015 Lower urinary tract infectious disease 02/13/2015 01/17/2017 Overview (06/13/2015): ICD-10 update of inactive term Other chest pain 03/28/2011 01/17/2017 HTN, goal below 140/80 03/28/201107/26 Overview: Per HTN Protocol ADVANCE DIRECTIVE INFORMATION 12/31/2005 02/20/2021 Overview (12/31/2005): Yes, Patient instructed to provide copy of advance directive for provider to review and to be scanned into Electronic Medical Record Dyslipidemia, goal to be determined 12/17/2004 01/04/2009 Overview (01/04/2009): Per Lipid Taxonomy GENERAL OSTEOARTHROSIS 12/17/200404/10 Osteoporosis 12/17/2004 04/03/2017 Type 2 diabetes mellitus wit h hemoglobin A1c goal of less than 7.0% 10/05/2004 12/08/2008 Overview (06/06/2015): Per Diabetes Taxonomy. ICD-10 update of inactive term Hearing loss 07/29/2002 04/10/2018 Intradermal nevus, Rt clavicle 08/08/00 10/21/2001 11/25/2017 Overview (10/21/2001): Dr Smart Actinic keratosis 10/21/2001 06/18/2016 Actinic cheilitis, Lower lip 03/04/90 10/21/2001 01/17/2017 Overview (10/21/2001): Dr Schulz Malignant neoplasm of skin of parts of face 10/21/2001 12/06/2010 Overview (05/04/2015): Dr Schulz ICD-10 update of inactive term PURE HYPERCHOLESTEROLEM 12/03/199901/10 Overview (01/19/2009): Per Lipid Taxonomy. Blepharochalasis 04/12/1998 11/25/2017 Malignant neoplasm of scalp and skin of neck 9 12/06/2010 Overview (05/16/2015): ICD-10 update of inactive term documented as of this encounter (statuses as of 05/25/2024) Immunizations Name Administration Dates Next Due COVID-19 mRNA, LNP-s, No Pre serve, 2-Dose Series (Ramped[employer]) 11/18/2020,04/24/2020,03/20/2020 COVID-19, LNP-s, No Preserve , Trip-sucrose, Ages 12+ (Pfizer) 05/14/2021 Covid-19, Mrna, Lnp-s, Pf, B ivalent, 30 Mcg, IM, 12 yrs and above ([employer]) 11/14/2021 H1N1 2009 Influenza, IM 01/16/2009 Pneumococcal Conjugate Vacc, 13 Valent (Prevnar) 08/15/2014 Pneumococcal Polysaccharide PPV23 (Pneumovax) 06/08/2012,07/09/2005 Seasonal Influenza Vac., MDV , IM, 0.5 mL (Fluzone) 10/26/2014,10/23/2013,10/24/2012,10/30,11/10/2010,11/03/2009,11/03/2008 ,12/07/2007,12/16/2006,11/29/2005 Seasonal Influenza Virus Vac cine, Unspecified Formulation 10/29/2021 Seasonal Influenza, High Dos e, Trivalent, PF, IM (Fluzone HD) 10/11/2019,10/24/2016 Seasonal Influenza, PF, 6 M & above, IM , (FluLaval or Fluzone) 10/20/2018,11/14/2017 Seasonal Influenza, Quadriva lent Hd (Fluzone Hd) 11/07/2020 Seasonal Influenza, Quadriva lent, No Preserve, IM 10/27/2015 TDAP (age 10 and older)(Boostrix) 05/05/2023, TDAP, Age 7 and older, IM (Adacel) 06/15/2008 Varicella Zoster Vaccine Kranthi lt (Zostavax) 09/03/2019,06/18/2019,07/20/2009 Zoster Vaccine Recombinant (Shingrix) 09/03/2019 ,06/18/2019 documented as of this encounter Social History Tobacco Use Types Packs/Day Years Used Date Smoking Tobacco: Former Cigarettes Q uit: 06/10/1988 Smokeless Tobacco: Never Comments:Quit 1996 after dane vonda. 5-6 years net smoking Alcohol Use Standard Drinks/Week Comments No 0 (1 standard drink = 0.6 oz pur e alcohol) rarely PHQ-2 Answer Date Recorded PHQ Adult Total Score 2 04/05/2024 Hunger Vital Sign Answer Date Recorded Within the past 12 months, y ou worried that your food would run out before you got the money to buy more. Never true 04/05/19 25 Within the past 12 months, t he food you bought just didn't last and you didn't have money to get more. Never true 04/05/2024 Childcare Answer Date Recorded Do you feel overwhelmed with taking care of a child, family member or friend? Yes 04/05/2024 Does your family need help f inding childcare? (Household - for ages 0-17 years) Not on file 04/05/2024 Clothing Answer Date Recorded Have you been unable to get clothing when it was really needed? No 04/05/2024 Is your family able to get c lothes or diapers when needed? (Household - for ages 0-17 years) Not on file 04/05/2024 Personal Safety Answer Date Recorded Do you feel unsafe or have concerns for your saf ety? No 04/05/2024 Do you have concerns for you r family's safety? (Household - for ages 0-17 years) Not on file 04/05/2024 Utilities Answer Date Recorded Do you have trouble paying y our heating, water, or electric bill? No 04/05/2024 Is your family able to pay t he heat, water, or electric bill? (Household - for ages 0-17 years) Not on file 04/05/2024 Does your family have access to good internet? (Household - for ages 0-17 years) Not on file 04/05/2024 Employment Status Answer Date Recorded Are you unemployed or without regular income? No 04/05/2024 Does the household have a re lar source of income? (Household - for ages 0-17 years) Not on file 04/05/2024 Social Connections Answer Date Recorded How often do you feel lonely or isolated from th ose around you? Never 04/05/2024 Financial Resource Strain Answer Date R ecorded Do you have any trouble payi ng for your medications, or do you think you might in the future? No 04/05/2024 Does your family have troubl e paying for medicine? (Household - for ages 0-17 years) Not on file 04/05/2024 Transportation Needs Answer Date Record ed Do you have trouble getting a ride to medical visits or work? (Adult - for ages 18 years and over) Not on file 04/05/2024 Does your family have a hard time getting a ride to doctors visits? (Household - for ages 0-17 years) Not on file 04/05/2024 Has lack of transportation k ept you from medical appointments, meetings, work, or from getting things needed for daily living? Check all that apply. No 04/05/2024 Do you (or your family) have trouble finding or paying for a ride (transportation)? (Household - for ages 0-17 years) Not on file 04/05/2024 Housing Stability Answer Date Recorded Do you currently live in a s helter or have no steady place to sleep at night? No 04/05/2024 Do you think you are at risk of becoming homeless? (Adult - for ages 18 years and over) Not on file 04/05/2024 Does your family worry about paying for your home or becoming homeless? (Household - for ages 0-17 years) Not on file 0 04/05/2024 Are you homeless or worried that you might be in the future? No 04/05/2024 Are you (or your family) lauryn eless or worried that you might be in the future? (Household - for ages 0-17 years) Not on file Food Insecurity Answer Date Recorded Do you need food for this week? No 11/11/2022 Are you able to get enough f ood for your family? (Household - for ages 0-17 years) Not on file 11/11/2022 Does your family need food t his week? (Household - for ages 0-17 years) Not on file 11/11/2022 Do you always have enough fo od for your family? (Household - for ages 0-17 years) Not on file 11/11/2022 Food Insecurity Answer Date Recorded Within the past 12 months, y ou worried that your food would run out before you got the money to buy more. Never true 04/05/19 Within the past 12 months, t he food you bought just didn't last and you didn't have money to get more. Never true 04/05/2024 Do you need food for this week? 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 She is staying with her daughter in [place] until 06/04 and then will come home and start OP therapy at [facility]. She declines med rec. She states her most recent medication is the ativan which Dr. Chandra prescribed. CV: Edema- left leg by the end of the day Pulmonary: Denies problems Chills/Sweats/Fever:Denies chills/sweats Denies fever Appetite:Denies problems such as nausea, vomiting, burning, +decreased appetite Current diet: regular Bowel: denies problems Bladder: denies problems Wound (If applicable): N/A Pain:Denies Sleep:Denies problems FUNCTIONAL STATUS: ADL'S: Needs Assistance With:N/A as pt is independent IADL'S: Needs Assistance With:Grocery Shopping, Cooking food, and Routine Housework Cognitive and Mental Health: denies problems, alert and oriented x 3, and able to communicate, understand instructions, process information. MEDICATION RECONCILIATION Medications: Declined med rec ASSESSMENT Medication Risk Assessment: No risks identified Discharge instructions available for review? Yes PLAN Symptom Monitoring Interventions:Member/caregiver education - signs and symptoms to contact PrimaryCare (DO NOT DELETE-Three bartlett symptoms patient is to report to PCP) 1. Chest pain 2. SOB 3. 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 Pt rescheduled 05/25 HD appt due to staying with her daughter in [place] until 06/04/24 Educated on role of LE completed with patient/caregiver. Educated patient/caregiver on patient right to have input on LE plan of care. Verification of Home Health/DME if indicated: Yes, glenn Identified Care Gaps: Yes Care Gaps closed this call: Appointment made or confirmed and Transition of Care follow-up communication Re-evaluation of Plan of Care and progress towards goals achievement: Patient education this visit: Verbal, see above Plan to follow-up as previously scheduled, instructed to call Primary Care Provider with change in symptoms or as needed before next follow-up, verbalizes understanding and agrees with plan. Maki Blevins RN documented in this encounter Plan of Treatment Upcoming Encounters Date Type Department Care Team (Late st Contact Info) Description 05/27/2024 2:00 PM EDT Appointment Radiology, [address] [place] [address] 05/27/2024 2:45 PM EDT Appointment Radiology, [address] [place] [address] 06/01/2024 3:00 PM EDT Hem/Onc Treatment Hematology/Oncology Treatment, [place] [address] [place] [phone] Brianna, Chair 6 Hem Onc Scenery [address] [place] [address] 06/04/2024 2:20 PM EDT Office Visit [facility] [address] [place] [address] Roby Chandra MD [address] [place] [address] 07/20/2024 12:15 PM EDT Office Visit [facility], [address] [place] [address] Dwayne Harris [facility] [address] [facility] [phone] 07/20/2024 2:00 PM EDT [facility] [place] [facility] [address] Zonia Park PA-C [address] [facility] [place] [address] 09/07/2024 11:00 AM EDT Office Visit Dermatology, [address] Abdi [place] [address] [place] [address] Michaelle Lopez PA-C [address] [place] [address] 11/04/2024 3:00 PM EDT Office Visit Hematology/Oncology [facility] [place] [phone] Anton Stinson MD [address] [facility] [place] [address] 11/05/2024 8:00 AM EDT Office Visit Gynecology/Obstetrics , [place] [address] [facility] [place] [address] aRdha Meadows MD [address] [place] [address] Scheduled Procedures Name Priority Associated Diagnoses Date/Ti me COLONOSCOPY FLEXIBLE PROXIMA L DIAGNOSTIC Recall History of colonic polyps Health Maintenance Due Date Last Done Comments Adult Wellness Visit 01/26/2012 COVID-19 Vaccine ( season) 2023 10/09/2023, 11/05/2022, 11/14/2021, Additional history exists B-12 09/11/2024 09/12/2023, 04/10, 08/21/2021, Additional history exists HbA1c 10/05/2024 04/07/2024, 09/11, 12/23/2022, Additional history exists Albumin/Creatinine Ratio 10/16/2024 024, 12/23/2022, 08/21/2021, Additional history exists Diabetic Foot Exam 10/16/2024 10/17/2023, 1 , 08/20/2021, Additional history exists Mammogram 11/16/2024 11/17/2023, 10/12, 11/08/2022 (Course Completed), Additional history exists Diabetic Eye Exam 11/18/2024 11/19/2023, , 10/01/2021, Additional history exists Depression Screening 04/05/2025 04/05/2024 GFR 05/21/2025 05/21/2024, 0 05/2024, 05/07/2024, Additional history exists Colonoscopy 09/12/2025 09/12/2022, 080 04/2022, 08/04/2019, Additional history exists DXA Scan 05/06/2029 05/06/2024, 11/10, 08/05/2016, Additional history exists DTap/Tdap Vaccines (4 - Td or Tdap) 05/04/2033 05/05/2023, 12/08/2018, 06/15/2008 Hepatitis C Screening Completed 05/04/2005 Pneumococcal Vaccine: 50+ Years Completed 08/15/2014, 06/08/2012, 07/09/2005 Zoster Vaccines Discontinued 09/03/2019, 08/11, 06/18/2019, Additional history exists Influenza Vaccine (FLU shot) Completed 10/09/2023, 11/05/2022, 10/29/2021, Additional history exists HPV (Gardasil) Vaccine Aged Out No lo nger eligible based on patient's age to complete this topic Hepatitis B Vaccine Aged Out No longe r eligible based on patient's age to complete this topic MENINGOCOCCAL (MENACTRA/MENVEO) Aged Out No longer eligible based on patient's age to complete this topic Meningitis B Vaccine (Bexsero/Trumemba) Aged Out No longer eligible based on patient's age to complete this topic documented as of this encounter Medical Devices Not on filedocumented as of this encounter Care Teams Temper Mill Roller Relationship Specialty Start Date End Date Roby Chandra MD [address] [place] [phone] PCP - General Family Medicine 04/05/24 documented as of this encounter
--- OUTSIDE RECORDS SUMMARY | 2024-05-27 21:11 | External Medical Summary ---
Author Name Unknown Address Unknown Organization K1F:[facility]ATORY [facility] - [address] [place] [address] Laboratory Report Ordering Provider Test Date Status SINGLETONMEGHAN SAM 05/21/2024 06:10:00 Final Observation Date Value Abnormality Reference (Units ) Status BUN 05/21/2024 06:10:00 10 6-20 (mg/dL) Final Creatinine 05/21/2024 06:10:00 0.7 0.5-1.0 (mg/dL) Final Glomerular filtration rate/1.73 sq M.predicted [Volume Rate/Area] in Serum, Plasma or Blood by Creatinine-based formula (CKD-EPI) 05/21/2024 06:10:00 89 >=60 (mL/min) Final eGFR is calculated based on the CKD-EPI 2020 equation. Sodium 05/21/2024 06:10:00 143 135-146 (m mol/L) Final Potassium 05/21/2024 06:10:00 4.1 3.5-5.1 (m mol/L) Final Cl 05/21/2024 06:10:00 104 98-107 (mm ol/L) Final CO2 05/21/2024 06:10:00 25 22-32 (mmo l/L) Final Anion gap 05/21/2024 06:10:00 14 7-15 (mmol /L) Final Glucose 05/21/2024 06:10:00 85 70-120 (mg /dL) Final Calcium 05/21/2024 06:10:00 8.3 Below low normal 8.4 -10.2 (mg/dL) Final Performing Location [facility] [address] [facility] [place] [address]
--- OUTSIDE RECORDS SUMMARY | 2024-05-27 21:11 | External Medical Summary ---
Author Name Unknown Address Unknown Organization K1F:[facility]ORY [facility] - [address] [place] [address] Laboratory Report Ordering Provider Test Date Status MEGHAN SINGLETON 05/14/2024 06:31:00 Final Observation Date Value Abnormality Reference (Units ) Status WBC, Total 05/14/2024 06:31:00 17.11 Above high normal 4.00-10.80 (K/uL) Final RBC 05/14/2024 06:31:00 3.31 3.85-5.15 (M/uL) Final Hemoglobin 05/14/2024 06:31:00 10.7 Below low normal 12.0-15.3 (g/dL) Final HCT 05/14/2024 06:31:00 35.5 Below low normal 36.0-45.2 (%) Final MCV 05/14/2024 06:31:00 107.3 81.5-97.5 (fL) Final MCH 05/14/2024 06:31:00 32.3 27.0-34.0 (pg) Final MCHC 05/14/2024 06:31:00 30.1 32.0-36.0 (g/dL) Final RDW 05/14/2024 06:31:00 16.6 11.5-15.5 (%) Final Platelets 05/14/2024 06:31:00 352 140-400 (K/uL) Final MPV 05/14/2024 06:31:00 13.8 6.6-11.1 (fL) Final Nucleated erythrocytes/100 leukocytes [Ratio] in Blood by Automated count 05/14/2024 06:31:00 0 <=0 (/100 WBCs) Final Performing Location [facility] - [address] [place] [address]
--- OUTSIDE RECORDS SUMMARY | 2024-05-27 21:11 | External Medical Summary ---
Author Name Unknown Address Unknown Organization K1F:LABORATORY [facility] - [address] [place] [address] Laboratory Report Ordering Provider Test Date Status SINGLETONMEGHAN SAM 05/14/2024 06:31:00 Final Observation Date Value Abnormality Reference (Units ) Status BUN 05/14/2024 06:31:00 10 6-20 (mg/dL) Final Creatinine 05/14/2024 06:31:00 0.7 0.5-1.0 (mg/dL) Final Glomerular filtration rate/1.73 sq M.predicted [Volume Rate/Area] in Serum, Plasma or Blood by Creatinine-based formula (CKD-EPI) 05/14/2024 06:31:00 90 >=60 (mL/min) Final eGFR is calculated based on the CKD-EPI 2020 equation. Sodium 05/14/2024 06:31:00 143 135-146 (m mol/L) Final Potassium 05/14/2024 06:31:00 4.0 3.5-5.1 (m mol/L) Final Cl 05/14/2024 06:31:00 105 98-107 (mm ol/L) Final CO2 05/14/2024 06:31:00 26 22-32 (mmo l/L) Final Anion gap 05/14/2024 06:31:00 12 7-15 (mmol /L) Final Glucose 05/14/2024 06:31:00 90 70-120 (mg /dL) Final Calcium 05/14/2024 06:31:00 8.3 Below low normal 8.4 -10.2 (mg/dL) Final Performing Location [facility] [address] [facility] [place] [address]
--- OUTSIDE RECORDS SUMMARY | 2024-05-27 21:11 | External Medical Summary ---
Author Name Unknown Address Unknown Organization K1F:LABORATORY [facility] - [address] [place] [address] Laboratory Report Ordering Provider Test Date Status MEGAHN SINGLETON 05/21/2024 06:10:00 Final Observation Date Value Abnormality Reference (Units ) Status WBC, Total 05/21/2024 06:10:00 20.49 Above high normal 4.00-10.80 (K/uL) Final RBC 05/21/2024 06:10:00 3.30 3.85-5.15 (M/uL) Final Hemoglobin 05/21/2024 06:10:00 10.5 Below low normal 12.0-15.3 (g/dL) Final HCT 05/21/2024 06:10:00 35.0 Below low normal 36.0-45.2 (%) Final MCV 05/21/2024 06:10:00 106.1 81.5-97.5 (fL) Final MCH 05/21/2024 06:10:00 31.8 27.0-34.0 (pg) Final MCHC 05/21/2024 06:10:00 30.0 32.0-36.0 (g/dL) Final RDW 05/21/2024 06:10:00 16.6 11.5-15.5 (%) Final Platelets 05/21/2024 06:10:00 383 140-400 (K/uL) Final MPV 05/21/2024 06:10:00 13.8 6.6-11.1 (fL) Final Nucleated erythrocytes/100 leukocytes [Ratio] in Blood by Automated count 05/21/2024 06:10:00 0 <=0 (/100 WBCs) Final Performing Location LABORATORY [facility] - [address] [place] [address]
--- OUTSIDE RECORDS SUMMARY | 2024-05-27 21:11 | External Medical Summary | Summary of Care ---
Author Name Unknown Organization [facility] Address [address] [facility] [address] Phone [phone] Care Team Providers Care Blind Cleaner Name Role Phone Roby Chandra MD Primary Care Provider Encounter Details Date Type Department Care Team (Late st Contact Info) Description 05/18/2024 Telephone [facility] [address] [place] [phone] Roby Chandra MD [address] [place] [address] Allergies Active Allergy Reactions Criticality Noted Date [...] as of this encounter (statuses as of 05/19/2024) Medications PRILOSEC 20 MG PO CPDR Take 1 Capsule by mouth in the morning. Can take extra cap for "heartburn". Active Calcium Carbonate-Vit D-Min (GNP CALCIUM 1200) 8069-4634 MG-UNIT CHEW Take 1 Capsule by mouth daily. Takes capsule not chews 9 Active Magnesium 500 MG Oral Capsule Take 1 Capsule by mouth in the morning. Active Vitamin B 12 500 MCG Oral Tablet Take 1 Tablet by mouth every morning. Active OneTouch Ultra In Vitro Strip (Glucose Blood)Indications :Type 2 diabetes mellitus with hemoglobin A1c goal of less than 7.0% ([facility]) TEST TWICE A DAY FOR TYPE 2 [...] Tablet before bedtime. Active OneTouch Delica Plus [id number] ons:Routine medical exam USE TO TEST BLOOD [...] hemoglobin A1c goal of less than 7.0% ([facility]) Use as directed. Use to check blood [...] as of this encounter (statuses as of 05/19/2024) Active Problems Problem Noted Date Diagnosed Date [...] as of this encounter (statuses as of 05/19/2024) Resolved Problems Problem Noted Date Diagnosed Date [...] 10/27/2017:Stage IA(pT1b, pN0, cM0, G1, ER: Positive, IL: Negative, HER2: Negative, Oncotype DX score: 22) - Signed by Anton Stinson MD on 10/27/2017 Type 2 diabetes mellitus wit h diabetic cataract 04/08/2017 02/20/2021 Right acute serous otitis media 04/02/2017 04/10/2018 Hx of actinic keratosis 06/18/201602/2018 Hx of basal cell carcinoma 06/18/2016 0 [...] 07/29/2002 04/10/2018 Intradermal nevus, Rt clavicle 08/08/00 10/21/200111/25/2017 Overview (10/21/2001): Dr Smart Actinic keratosis 10/21/2001 [...] as of this encounter (statuses as of 05/19/2024) Immunizations Name Administration Dates Next Due COVID-19 mRNA, LNP-s, No Pre serve, 2-Dose Series ([facility]) 11/18/2020,04/24/2020,03/20/2020 COVID-19, LNP-s, No Preserve , Trip-sucrose, Ages 12+ ([facility]) 05/14/2021 Covid-19, Mrna, Lnp-s, Pf, B ivalent, 30 Mcg, IM, 12 yrs and above ([facility]) 11/14/2021 H1N1 2009 Influenza, IM 01/16/2009 Pneumococcal [...] No 04/05/2024 Does the household have a [facility] source of income? (Household - for ages [...] encounter Miscellaneous Notes * Telephone Encounter - Jaycee Harden LPN - 05/18/2024 3:56 PM EDT [facility] from [facility] Patient is being discharged on 05/21/24 need to schedule discharge follow up with pcp Patient scheduled 05/25/24 at 11:[address] Chandra documented in this encounter Plan of Treatment Upcoming Encounters Date Type Department Care Team (Late st Contact Info) Description 05/25/2024 11:20 AM EDT Office Visit [facility] [address] [place] [phone] Roby Chandra MD [address] [place] [address] 05/27/2024 2:00 PM EDT Appointment Radiology, [address] [place] [address] 05/27/2024 2:45 PM EDT Appointment Radiology, [address] [place] [address] 06/01/2024 3:00 PM EDT Hem/Onc Treatment Hematology/Oncology Treatment, [place] [address] [place] [address] Brianna, Chair 6 Hem Onc [address] [facility] [address] 07/20/2024 12:15 PM EDT Office Visit Interventional Pain Center, [address] [place] [address] Dwayne Harris DO [facility] [phone] 07/20/2024 2:00 PM EDT Office Visit Cardiology, [place] [facility] [address] Zonia Park PA-C 400 [facility] [place] [address] 09/07/2024 11:00 AM EDT Office Visit Dermatology, [address] Ab[address] [place] [address] [place] [address] Michaelle Lopez PA-C 27 [place] [address] 11/04/2024 3:00 PM EDT Office Visit Hematology/Oncology [facility] 200 [facility] [place] [address] Anton Stinson MD 200 [facility] [place] [address] 11/05/2024 8:00 AM EDT Office Visit Gynecology/Obstetrics , [place] 400 [facility] [place] [address] Radha Meadows MD [address] [place] [address] Scheduled Procedures Name Priority Associated Diagnoses Date/Ti [...] history exists Depression Screening 04/05/2025 04/05/2024 GFR 05/14/2025 05/14/2024, 04/11, 04/30/2024, Additional history exists Colonoscopy 09/12/2025 09/12/2022, 08/04/2022, 08/04/2019, Additional history exists DXA Scan 05/06/2029 [...] filedocumented as of this encounter Care Teams Blind Cleaner Relationship Specialty Start Date End Date Roby Chandra MD [address] [place] [phone] PCP - General Family Medicine 04/05/24 documented as of this encounter
--- OUTSIDE RECORDS SUMMARY | 2024-05-27 21:11 | External Medical Summary ---
Author Name Unknown Address Unknown Organization K1F:LABORATORY [facility] - [address] [place] [address] Laboratory Report Ordering Provider Test Date Status SINGLETONMEGHAN 05/21/2024 06:10:00 Final Observation Date Value Abnormality Reference (Units ) Status SYNC LEUKOCYTES IN BLOOD BY AUTOMATED COUNT 05/21/2024 06:10:00 20.49 Above high normal 4.00-10.80 (K/uL) Final Neutrophils/100 leukocytes in Blood by Manual count 05/21/2024 06:10:00 92.0 Above high normal 40.0-75.0 (%) Final Lymphocytes/100 leukocytes in Blood by Manual count 05/21/2024 06:10:00 4.0 Below low normal 18.0-42.0 (%) Final Eosinophils/100 leukocytes in Blood by Manual count 05/21/2024 06:10:00 4.0 0.0-6.0 (%) Final Neutrophils [#/volume] in Blood by Manual count 05/21/2024 06:10:00 18.85 Above high normal 1.80-7.70 (K/uL) Final Lymphocytes [#/volume] in Blood by Manual count 05/21/2024 06:10:00 0.82 Below low normal 1.00-4.80 (K/uL) Final Eosinophils [#/volume] in Blood by Manual count 05/21/2024 06:10:00 0.82 Above high normal 0.00-0.70 (K/uL) Final Giant platelets [Presence] in Blood by Light microscopy 05/21/2024 06:10:00 Present Abnormal None Seen Final Performing Location LABORATORY [facility] - [address] [facility] [address] [place] [address]
--- OUTSIDE RECORDS SUMMARY | 2024-05-27 21:11 | External Medical Summary | Summary of Care ---
Author Name Unknown Organization [facility] Address [address] [place] [facility] [place] [address] Phone [phone] Care Team Providers Care Alarm Operator Name Role Phone Roby Chandra MD Primary Care Provider Encounter Details Date Type Department Care Team (Late st Contact Info) Description 05/27/2024 Orders Only Hematology/Oncology [facility] [address] [place] [address] Anton Stinson MD [address] [place] [address] Allergies Active Allergy Reactions Criticality Noted Date [...] as of this encounter (statuses as of 05/27/2024) Medications PRILOSEC 20 MG PO CPDR Take 1 Capsule by mouth in the morning. Can take extra cap for "heartburn". Active Calcium Carbonate-Vit D-Min (GNP CALCIUM 1200) 9708-9359 MG-UNIT CHEW Take 1 Capsule by mouth daily. Takes capsule not chews 9 Active Magnesium 500 MG Oral Capsule Take 1 Capsule by mouth in the morning. Active Vitamin B 12 500 MCG Oral Tablet Take 1 Tablet by mouth every morning. Active OneTouch Ultra In Vitro Strip (Glucose Blood)Indications :Type 2 diabetes mellitus with hemoglobin A1c goal of less than 7.0% ([facility]) TEST TWICE A DAY FOR TYPE 2 [...] Tablet before bedtime. Active OneTouch Delica Plus [id number] ons:Routine medical exam USE TO TEST BLOOD [...] hemoglobin A1c goal of less than 7.0% ([facility]) Use as directed. Use to check blood [...] MOUTH TWICE A DAY 180 Tablet 1 5 Active LORazepam 0.5 MG Oral Tablet (Ativan) Take 1 Tablet by mouth 2 times a day as needed for Anxiety. Do not drive while taking this medication. 30 Tablet 5 Active documented as of this encounter (statuses as of 05/27/2024) Active Problems Problem Noted Date Diagnosed Date [...] as of this encounter (statuses as of 05/27/2024) Resolved Problems Problem Noted Date Diagnosed Date [...] 10/27/2017:Stage IA(pT1b, pN0, cM0, G1, ER: Positive, MI: Negative, HER2: Negative, Oncotype DX score: 22) [...] as of this encounter (statuses as of 05/27/2024) Immunizations Name Administration Dates Next Due COVID-19 mRNA, LNP-s, No Pre serve, 2-Dose Series ([employer]) 11/18/2020,04/24/2020,03/20/2020 COVID-19, LNP-s, No Preserve , Trip-sucrose, Ages 12+ ([employer]) 05/14/2021 Covid-19, Mrna, Lnp-s, Pf, B ivalent, 30 Mcg, IM, 12 yrs and above ([employer]) 11/14/2021 H1N1 2009 Influenza, IM 01/16/2009 Pneumococcal [...] 04/05/2024 Does the household have a re gular source of income? (Household - for ages [...] on file documented as of this encounter Plan of Treatment Upcoming Encounters Date Type Department Care Team (Late st Contact Info) Description 05/27/2024 2:00 PM EDT Hospital Encounter Radiology, [address] [place] [phone] 06/04/2024 2:20 PM EDT [facility] [address] [place] [phone] Roby Chandra MD [address] [place] [phone] 07/20/2024 12:15 PM EDT Office Visit Interventional Pain Center, [facility] 400 [place], [place] [phone] Dwayne Harris DO 400 [place] [address] 07/20/2024 2:00 PM EDT Office Visit Cardiology, [place] [address] [place] [address] Zonia Park PA-C [address] [place], [place] [phone] 08/02/2024 11:00 AM EDT Laboratory Laboratory, [facility] 400 [place] [phone] [facility], Lab [address] [place], [place] [phone] 08/03/2024 3:00 PM EDT Hem/Onc Treatment Hematology/Oncology Treatment, [place] 200 [facility] [address] Brianna, Chair 11 Hem [address] [place] [address] 09/07/2024 11:00 AM EDT Office Visit Dermatology, [place] [address] [facility] 140 [place] [address] Michaelle Lopez PATeofilo [address] [place] [phone] 11/04/2024 3:00 PM EDT Office Visit Hematology/Oncology [facility] [place] 200 [facility] [place] [address] Anton Stinson MD 200 [facility] [place] [address] 11/05/2024 8:00 AM EDT Office Visit Gynecology/Obstetrics , [place] [place] [address] Radha Meadows MD [address] [place] [address] Scheduled Procedures Name Priority Associated Diagnoses Date/Ti [...] Depression Screening 04/05/2025 04/05/2024 GFR 05/21/2025 05/21/2024, 04/0 05/2024, 05/07/2024, Additional history exists Colonoscopy 09/12/2025 09/12/2022, 08/0 04/2022, 08/04/2019, Additional history exists DXA Scan [...] filedocumented as of this encounter Care Teams Alarm Operator Relationship Specialty Start Date End Date Roby Chandra MD [address] [place] [address] PCP - General Family Medicine 04/05/24 documented as of this encounter
--- OUTSIDE RECORDS SUMMARY | 2024-05-27 21:12 | External Medical Summary ---
Author Name Unknown Address Unknown Organization K1F:LABORATORY [facility] - 400 [facility]. [place] [address] Laboratory Report Ordering Provider Test Date Status VILMA SIMMS 05/07/2024 06:28:00 Final Observation Date Value Abnormality Reference (Units ) Status SYNC LEUKOCYTES IN BLOOD BY AUTOMATED COUNT 05/07/2024 06:28:00 21.66 Above high normal 4.00-10.80 (K/uL) Final Neutrophils/100 leukocytes in Blood by Manual count 05/07/2024 06:28:00 87.0 Above high normal 40.0-75.0 (%) Final Lymphocytes/100 leukocytes in Blood by Manual count 05/07/2024 06:28:00 7.0 Below low normal 18.0-42.0 (%) Final Monocytes/100 leukocytes in Blood by Manual count 05/07/2024 06:28:00 1.0 1.0-11.0 (%) Final Eosinophils/100 leukocytes in Blood by Manual count 05/07/2024 06:28:00 2.0 0.0-6.0 (%) Final Basophils/100 leukocytes in Blood by Manual count 05/07/2024 06:28:00 3.0 Above high normal 0.0-2.0 (%) Final Neutrophils [#/volume] in Blood by Manual count 05/07/2024 06:28:00 18.84 Above high normal 1.80-7.70 (K/uL) Final Lymphocytes [#/volume] in Blood by Manual count 05/07/2024 06:28:00 1.52 1.00-4.80 (K/uL) Final Monocytes [#/volume] in Blood by Manual count 05/07/2024 06:28:00 0.22 0.00-1.10 (K/uL) Final Eosinophils [#/volume] in Blood by Manual count 05/07/2024 06:28:00 0.43 0.00-0.70 (K/uL) Final Basophils [#/volume] in Blood by Manual count 05/07/2024 06:28:00 0.65 Above high normal 0.00-0.20 (K/uL) Final Performing Location LABORATORY [facility] - [address] [place] [address]
--- OUTSIDE RECORDS SUMMARY | 2024-05-27 21:12 | External Medical Summary ---
Author Name Unknown Address Unknown Organization K1F:LABORATORY [facility] - [address] [place] [address] Laboratory Report Ordering Provider Test Date Status VILMA SIMMS 05/07/2024 06:28:00 Final Observation Date Value Abnormality Reference (Units ) Status WBC, Total 05/07/2024 06:28:00 21.66 Above high normal 4.00-10.80 (K/uL) Final RBC 05/07/2024 06:28:00 3.39 3.85-5.15 (M/uL) Final Hemoglobin 05/07/2024 06:28:00 10.8 Below low normal 12.0-15.3 (g/dL) Final HCT 05/07/2024 06:28:00 35.3 Below low normal 36.0-45.2 (%) Final MCV 05/07/2024 06:28:00 104.1 81.5-97.5 (fL) Final MCH 05/07/2024 06:28:00 31.9 27.0-34.0 (pg) Final MCHC 05/07/2024 06:28:00 30.6 32.0-36.0 (g/dL) Final RDW 05/07/2024 06:28:00 16.8 11.5-15.5 (%) Final Platelets 05/07/2024 06:28:00 498 Above high normal 140-400 (K/uL) Final MPV 05/07/2024 06:28:00 13.2 6.6-11.1 (fL) Final Nucleated erythrocytes/100 leukocytes [Ratio] in Blood by Automated count 05/07/2024 06:28:00 0 <=0 (/100 WBCs) Final Performing Location LABORATORY [facility] - [address] [place] [address]
--- OUTSIDE RECORDS SUMMARY | 2024-05-27 21:12 | External Medical Summary | Summary of Care ---
Author Name Unknown Organization [facility] Address [address] [place] [facility] [place] [address] Phone [phone] Care Team Providers Care Sticker Operator Name Role Phone Roby Chandra MD Primary Care Provider Reason for Visit * Reason Onset Date Comments Advice 05/07/2024 Milad Encounter Details Date Type Department Care Team (Late st Contact Info) Description 05/07/2024 Telephone Hematology/Oncology [facility] [address] [place] [facility] [place] [address] Services, Scheduling [address] [place] [address] Advice (Milad) Allergies Active Allergy Reactions Criticality Noted Date [...] as of this encounter (statuses as of 05/07/2024) Medications PRILOSEC 20 MG PO CPDR Take 1 Capsule by mouth in the morning. Can take extra cap for "heartburn". Active Calcium Carbonate-Vit D-Min (GNP CALCIUM 1200) 0538-4917 MG-UNIT CHEW Take 1 Capsule by mouth [...] Tablet before bedtime. Active OneTouch Delica Plus [id number] ons:Routine medical exam USE TO TEST BLOOD [...] A DAY 180 Tablet 1 5 Active documented as of this encounter (statuses as of 05/07/2024) Active Problems Problem Noted Date Diagnosed Date [...] as of this encounter (statuses as of 05/07/2024) Resolved Problems Problem Noted Date Diagnosed Date [...] 10/27/2017:Stage IA(pT1b, pN0, cM0, G1, ER: Positive, [place]: Negative, HER2: Negative, Oncotype DX score: 22) - Signed by Anton Stinson MD on 10/27/2017 Type 2 diabetes mellitus wit h diabetic cataract 04/08/2017 02/20/2021 Right acute serous otitis media 04/02/2017 04/10/2018 Hx of actinic keratosis 06/18/2016 03/02/2018 Hx of basal cell carcinoma 06/18/2016 0 [...] neoplasm of scalp and skin of neck 12/06/2010 Overview (05/16/2015): ICD-10 update of inactive term documented as of this encounter (statuses as of 05/07/2024) Immunizations Name Administration Dates Next Due COVID-19 mRNA, LNP-s, No Pre serve, 2-Dose Series ([employer]) 11/18/2020,04/24/2020,03/20/2020 COVID-19, LNP-s, No Preserve , Trip-sucrose, Ages 12+ ([employer]) 05/14/2021 Covid-19, Mrna, Lnp-s, Pf, B ivalent, 30 Mcg, IM, 12 yrs and above ([employer]) 11/14/2021 H1N1 2009 Influenza, IM 01/16/2009 Pneumococcal Conjugate Vacc, 13 Valent (Prevnar) 08/15/2014 Pneumococcal Polysaccharide PPV23 (Pneumovax) 06/08/2012,07/09/2005 Seasonal Influenza Vac., MDV , IM, 0.5 mL (Fluzone) 10/26/2014,10/23/2013,10/24/2012,10/30,11/10/2010,11/03/2009,11/03/2008 ,12/07/2007,12/16/2006,11/29/2005,11/11,12/20/2002,11/25/2001, 1,02/18/2000,12/06/1998 Seasonal Influenza Virus Vac cine, Unspecified Formulation [...] older, IM (Adacel) 06/15/2008 Varicella Zoster Vaccine (Adult) 09/03/2019,09/2019,07/20/2009 Zoster Vaccine Recombinant (Shingrix) 09/03/2019 ,06/18/2019 documented [...] encounter Miscellaneous Notes * Telephone Encounter - Kusum Monge OSA - 05/07/2024 1:28 PM EDT Pt is scheduled and is aware * Telephone Encounter - Cindy Rhodes RN - 05/07/2024 1:14 PM EDT Called patient, she is aware of US order. Would like this done in [place]. Scheduling: please follow up with patient to schedule. Thanks! * Telephone Encounter - Anton Stinson MD - 05/07/2024 12:[address] urogram done in February 2024 showed thickening of the endometrium I would like to proceed with pelvic sonogram for for further evaluation. * Telephone Encounter - Carmela Ugalde OSA - 05/07/2024 9:03 AM EDT Pt is calling to let Dr Stinson that she was not able to get in to see RADIATOR FITTER until October. At her appointment last week, he told her to have a breast exam done. She has called multiple places and the soonest her could get in was October. She wants to know what she should do. Please advise documented in this encounter Plan of Treatment Upcoming Encounters Date Type Department Care Team (Late st Contact Info) Description 05/27/2024 2:00 PM EDT Appointment Rad[address], [address] [place] [address] 05/27/2024 2:45 PM EDT Appointment Radiology, [address] [place] [address] 06/01/2024 3:00 PM EDT Hem/Onc Treatment Hematology/Oncology Treatment, [place] [address] [place] [phone] Brianna, Chair 6 Hem Onc [address] [place] [address] 07/20/2024 12:15 PM EDT Office Visit Interventional Pain Center, [address] [place] [address] Dwayne Harris, DO 400 [facility] [place], [place] [address] 07/20/2024 2:00 PM EDT Office Visit Cardiology, [place] 400 [facility] [place] [address] Zonia Park PA-C 400 [facility] [place], [place] [phone] 09/07/2024 11:00 AM EDT Office Visit Dermatology, [address] Abdi [place] [address] [place] [address] Michaelle Lopez PA-C [address] [place] [address] 11/04/2024 3:00 PM EDT Office Visit Hematology/Oncology [facility] 200 [facility] [place] [phone] Anton Stinson MD 200 [facility] [place] [address] 11/05/2024 8:00 AM EDT Office Visit Gynecology/Obstetrics , [place] 400 [facility] [place] [address] Radha Meadows MD [address] [place] [address] Scheduled Orders Name Type Priority Associated Diagnoses Orde r Schedule US PELVIS TRANS-ABDOMINAL Medical Imaging Routine Endometrial thickening on ultrasound Ordered: 05/07/2024 US PELVIS TRANS-VAGINAL NON-OB Medical Imaging Routine Endometrial thickening on ultrasound Ordered: 05/07/2024 Scheduled Procedures Name Priority Associated Diagnoses Date/Ti me COLONOSCOPY FLEXIBLE PROXIMA L DIAGNOSTIC Recall History of colonic polyps Health Maintenance Due Date Last Done Comments Adult Wellness Visit 01/26/2012 COVID-19 Vaccine ( season) 2023 10/09/2023, 11/05/2022, 11/14/2021, Additional history exists B-12 09/11/2024 09/12/2023, 04/10, 08/21/2021, Additional history exists HbA1c 10/05/2024 04/07/2024, 082 02/2023, 12/23/2022, Additional history exists Albumin/Creatinine Ratio 10/16/2024 024, 12/23/2022, 08/21/2021, Additional history exists Diabetic Foot Exam 10/16/2024 10/17/2023, 1 , 08/20/2021, Additional history exists Mammogram 11/16/2024 11/17/2023, 10/12, 11/08/2022 (Course Completed), Additional history exists Diabetic Eye Exam 11/18/2024 11/19/2023, , 10/01/2021, Additional history exists Depression Screening 04/05/2025 04/05/2024 GFR 05/07/2025 05/07/2024, 04/11, 04/23/2024, Additional history exists Colonoscopy 09/12/2025 09/12/2022, 08/0 [...] Not on filedocumented as of this encounter Visit Diagnoses Diagnosis Endometrial thickening on ultrasound- Primary documented in this encounter Care Teams Sticker Operator Relationship Specialty Start Date End Date Roby Chandra MD [address] [place] [address] PCP - General Family Medicine 04/05/24 documented as of this encounter
--- OUTSIDE RECORDS SUMMARY | 2024-05-27 21:12 | External Medical Summary | Summary of Care ---
Author Name Unknown Organization [facility] Address [address] [place] [place] [address] Phone [phone] Care Team Providers Care Brick Burner Name Role Phone Roby Chandra MD Primary Care Provider Reason for Visit * Reason Onset Date Comments Advice 05/07/2024 Milad Encounter Details Date Type Department Care Team (Late st Contact Info) Description 05/07/2024 Telephone Hematology/Oncology [facility] [address] [place] [facility] [place] [address] Services, Scheduling [address] [place] [address] Advice (Milad) Allergies Active Allergy Reactions Criticality [...] Active Calcium Carbonate-Vit D-Min (GNP CALCIUM 1200) 0444-8095 MG-UNIT CHEW Take 1 Capsule by mouth daily. Takes capsule not chews 9 Active Magnesium 500 MG Oral Capsule Take 1 Capsule by mouth in the morning. Active Vitamin B 12 500 MCG Oral Tablet Take 1 Tablet by mouth every morning. Active OneTouch Ultra In Vitro Strip (Glucose Blood)Indications :Type 2 diabetes mellitus with hemoglobin A1c goal of less than 7.0% ([facility]) TEST TWICE A DAY FOR TYPE 2 [...] Tablet before bedtime. Active OneTouch Delica Plus [id number] ons:Routine medical exam USE TO TEST BLOOD [...] hemoglobin A1c goal of less than 7.0% ([facility]) Use as directed. Use to check blood [...] 10/27/2017:Stage IA(pT1b, pN0, cM0, G1, ER: Positive, NE: Negative, HER2: Negative, Oncotype DX score: 22) [...] mRNA, LNP-s, No Pre serve, 2-Dose Series ([employer]) 11/18/2020,04/24/2020,03/20/2020 COVID-19, LNP-s, No Preserve , Trip-sucrose, Ages 12+ ([employer]) 05/14/2021 Covid-19, Mrna, Lnp-s, Pf, B ivalent, 30 Mcg, IM, 12 yrs and above ([employer]) 11/14/2021 H1N1 2009 Influenza, IM 01/16/2009 Pneumococcal [...] US order. Would like this done in [place]. Scheduling: please follow up with patient to [...] not able to get in to see SECOND HELPER until October. At her appointment last week, [...] Description 05/27/2024 2:00 PM EDT [address], [address] [address] 05/27/2024 2:45 PM EDT Appointment Radiology, [address] [place] [address] 06/01/2024 3:00 PM EDT Hem/Onc Treatment Hematology/Oncology Treatment, [place] [address] [place] [phone] Brianna, Chair 6 Hem Onc Scenery [address] [place] [address] 07/20/2024 12:15 PM EDT Office Visit Interventional Pain Center, [address] [place] [address] Dwayne Harris, DO [address] [facility] [place], [place] [address] 07/20/2024 2:00 PM EDT Office Visit Cardiology, [place] [address] [facility] [place] [address] Zonia Park PA-C [address] [facility] [place], [place] [phone] 09/07/2024 11:00 AM EDT Office Visit Dermatology, [address] [place] [address] [place] [address] Michaelle Lopez PA-C [address] [place] [address] 11/04/2024 3:00 PM EDT Office Visit Hematology/Oncology [facility] 200 [facility] [place] [phone] Anton Stinson MD [address] [facility] [place] [address] 11/05/2024 8:00 AM EDT Office Visit Gynecology/Obstetrics , [place] [address] [facility] [place] [address] Radha Meadows MD [address] [place] [address] Scheduled Orders Name Type Priority Associated Diagnoses [...] Primary documented in this encounter Care Teams Brick Burner Relationship Specialty Start Date End Date Roby Chandra MD [address] [place] [address] PCP - General Family Medicine 04/05/24 documented as of this encounter
--- OUTSIDE RECORDS SUMMARY | 2024-05-27 21:12 | External Medical Summary | Continuity of Care Document ---
Author Name Unknown Organization [facility] [id number] Address [address] [place] [id number] Care Team Providers Care Biochemistry Professor Name Role Phone PrateekRoby carrasquillo I Primary Care Physician [phone] Encounter [facility] [id number] Date(s): 04/28/24 - 04/28/24 [place] [address] [facility] Medicine [address] [place] [address] Encounter Diagnosis Fracture, intertrochanteric, left femur(Discharge Diagnosis) - 04/28/24 Osteoporosis(Discharge Diagnosis) - 04/28/24 Discharge Disposition: Home or Self Care Attending Physician: MD Argueta Paul S Encounter Type: Clinic Allergies, Adverse Reactions, Alerts Substance Criticality Severity Reaction Reaction Severity Status sulindac out of body Active morphine Unable to assess criticality Moderate hives Active HYDROcodone Unable to assess criticality Mild BAD TASTE IN MOUTH Active lactulose Unable to assess criticality Mild INTOLERANT Active Adhesive bandage Unable to assess criticality Moderate Hives Active iodine Unable to assess criticality Moderate HIVES- ALSO SEAFOOD-HIVES Active Latex Unable to assess criticality Moderate HIVES Active Medications acetaminophen 650 mg oral tablet, extended release Start: 04/16/24 9:11:46 AM EST, 650 Unknown, Unknown, 0 Refill(s) Start Date: 04/16/24 Status: Ordered Repeat number: 1 Albuterol (Eqv-Ventolin HFA) 90 mcg/inh inhalation aerosol Start: 04/28/24 3:30:00 PM EDT Start Date: 04/28/24 Status: Ordered Repeat number: 1 apixaban 5 mg oral tablet Start: 04/16/24 9:11:46 AM EST, 5 Unknown, Unknown, 0 Refill(s) Start Date: 04/16/24 Status: Ordered Repeat number: 1 atorvastatin 20 mg oral tablet Start: 04/28/24 3:28:00 PM EDT, 14 each, 0 Refill(s) Start Date: 04/28/24 Status: Ordered Repeat number: 1 [place] Saline 0.65% nasal gel Start: 04/28/24 3:30:00 PM EDT Start Date: 04/28/24 Status: Ordered Repeat number: 1 calcium (as carbonate)-vitamin D 600 mg-5 mcg (200 intl units) oral tablet Start: 04/16/24 9:11:46 AM EST, 1 Unknown, Unknown, 0 Refill(s) Start Date: 04/16/24 Status: Ordered Repeat number: 1 Eliquis 5 mg oral tablet Start: 04/28/24 3:30:00 PM EDT, 1 tab, PO, bid Start Date: 04/28/24 Status: Ordered Repeat number: 1 gabapentin 300 mg oral capsule Start: 04/28/24 3:30:00 PM EDT Start Date: 04/28/24 Status: Ordered Repeat number: 1 hydroxyurea 500 mg oral capsule Start: 04/28/24 3:30:00 PM EDT Start Date: 04/28/24 Status: Ordered Repeat number: 1 loratadine 10 mg oral tablet Start: 04/28/24 3:30:00 PM EDT Start Date: 04/28/24 Status: Ordered Repeat number: 1 LORazepam 0.5 mg oral tablet Start: 04/28/24 3:30:00 PM EDT Start Date: 04/28/24 Status: Ordered Repeat number: 1 metFORMIN 500 mg oral tablet Start: 04/28/24 3:30:00 PM EDT Start Date: 04/28/24 Status: Ordered Repeat number: 1 omeprazole 20 mg oral delayed release capsule Start: 04/28/24 3:30:00 PM EDT Start Date: 04/28/24 Status: Ordered Repeat number: 1 traMADol 50 mg oral tablet Start: 04/28/24 3:30:00 PM EDT Start Date: 04/28/24 Status: Ordered Repeat number: 1 Vitamin B-12 500 mcg oral tablet Start: 04/28/24 3:30:00 PM EDT Start Date: 04/28/24 Status: Ordered Repeat number: 1 Mental Status 04/28/24 Barriers to Learning one year None evide nt Mandatory Health Literacy Documentation Yes Health Literacy Communication Barriers N ever Primary Language Sierra Leonean Problem List Condition Confirmation Course Effective Dates Status Health St atus Informant Fracture, intertrochanteric, left femur Confirmed Active Osteoporosis Confirmed Active Diagnosis Diagnosis Type Effective Dates Health Status Clinical Service Informant Fracture, intertrochanteric, left femur Discharge Diagnosis 04/28/24 Non-Specified Osteoporosis Discharge Diagnosis 04/28/24 Social History Social History Type Response Smoking Status Never smoked cigaret camilla Sex Female Sex Representation Female (finding) Ortho Outpt Note * Ann Ayala: PERFORM, MODIFY, MODIFY, MODIFY, MODIFY, MODIFY, MODIFY, MODIFY MD Argueta Paul S: MODIFY Event Display: Ortho Outpt Note Authored Date: [id number] Name: EUNICE MCDERMOTT Patient Number: [id number] : 1945 Date of Service: 04/28/2024 CHIEF COMPLAINT: F/u 2 weeks s/p ORIF left hip, DOS: 04/14/24 HPI: Eunice Mcdermott ("Crystal") is a 79 year old Female who presents today for f/u 2 weeks s/p above noted procedure. She has been attending PT and reports that she is doing well overall. Thepatient is ambulating mostly in a wheelchair, and has been walking with a walker during therapy. She notes that her foot is swollen today. She has been sleeping in her lounge chair at night with her feet up. She notes that she has been urinating more frequently. Patient is taking Eliquis and may soon be reducing the dose from 5mg to 2.5mg. PHYSICAL EXAM: Focusing on the patient's LEFT lower extremity: 1+ Edema 5/5 Strength ankle and knee Trace DP pulse Knee ROM: 90° flexion No knee tenderness No knee effusion Bruise present over knee 1 cm superficial scab on the mid-lateral left leg Can arise nearly independently Able to ambulate a few steps with assistance Thigh is nontender DIAGNOSTIC REVIEW: 2 views of the left femur obtained today and personally interpreted by me taken at [facility] show probably reverse obliquity intertrochanteric fracture with long trochanteric nail in place. Fracture iswell aligned. Total knee present with hardware intact. Vitamin D level: 33 IMPRESSION: 79 year old female 2 weeks s/p ORIF left hip, DOS: 04/14/24. PLAN: - Loc were removed and steri strips placed at the visit today - Continue elevating the left leg and attending PT - May continue progressing walking with the walker - Continue taking Eliquis as prescribed - Recommend repeat bone density test if most recent was longer than 2 years ago. Recommend continued vitamin D and calcium supplementation. - Follow up in 1 month with x-rays ATTESTATION: I, Ann Ayala, have scribed for, and in the presence of, Claude Argueta, on this date, 04/28/2024 15:24:05. Electronic Signature on File Electronically Reviewed/Signed by: Ann Ayala Author Signature Dt/Tm:04/28/2024 04:22 PM Electronically Reviewed/Signed by: Claude Argueta MD Cosigner Signature Dt/Tm: 04/28/2024 05:27 PM Division of Sports Medicine [facility] Patient Care team information Care Team Personnel Name: MD Chandra Lowell I Position: Referring DIRECT Member Role: Primary Care Provider Address: [address] [place] [address] Telecom: [phone] Insurance Providers Guarantor name: EUNICE J SHARRON Health Plan Information #: 1 Payer: [employer] Member Number: [id number] Policy Number: NA Group Number: [id number] Health Plan Information #: 2 Payer: [employer] Member Number: [id number] Policy Number: NA Group Number: [id number]
--- OUTSIDE RECORDS SUMMARY | 2024-05-27 21:12 | External Medical Summary ---
Author Name Unknown Address Unknown Organization K1F:[facility] - [address] [facility]. [place] [address] Laboratory Report Ordering Provider Test Date Status VILMA SIMMS 04/30/2024 05:57:00 Final Observation Date Value Abnormality Reference (Units ) Status SYNC LEUKOCYTES IN BLOOD BY AUTOMATED COUNT 04/30/2024 05:57:00 24.44 Above high normal 4.00-10.80 (K/uL) Final Segs 04/30/2024 05:57:00 86.5 Above high normal 40.0-75.0 (%) Final Lymphs % 04/30/2024 05:57:00 5.2 Below low normal 18.0-42.0 (%) Final Monos 04/30/2024 05:57:00 3.8 1.0-11.0 (%) Final Eosinophils 04/30/2024 05:57:00 1.9 0.0-6.0 (%) Final Basos 04/30/2024 05:57:00 1.3 0.0-2.0 (%) Final Immature Granulocyte, Percent 04/30/2024 05:57:00 1.3 0.0-2.0 (%) Final Absolute Segs 04/30/2024 05:57:00 21.12 Above high normal 1.80-7.70 (K/uL) Final Lymphs, absolute 04/30/2024 05:57:00 1.28 1.00-4.80 (K/ul) Final Monos, Abs 04/30/2024 05:57:00 0.94 0.00-1.10 (K/uL) Final Eos, Abs 04/30/2024 05:57:00 0.47 0.00-0.70 (K/uL) Final Basos, Abs 04/30/2024 05:57:00 0.31 Above high normal 0.00-0.20 (K/uL) Final Immature Granulocytes, Number 04/30/2024 05:57:00 0.32 Above high normal 0.00-0.20 (K/uL) Final Performing Location [facility] - [facility] [address]. [place] [address]
--- OUTSIDE RECORDS SUMMARY | 2024-05-27 21:12 | External Medical Summary ---
Author Name Unknown Address Unknown Organization K1F:[facility] - [address] [place] [address] Ave. [place] [address] Laboratory Report Ordering Provider Test Date Status VILMA SIMMS 04/30/2024 05:57:00 Final Observation Date Value Abnormality Reference (Units ) Status WBC, Total 04/30/2024 05:57:00 24.44 Above high normal 4.00-10.80 (K/uL) Final RBC 04/30/2024 05:57:00 3.54 3.85-5.15 (M/uL) Final Hemoglobin 04/30/2024 05:57:00 11.3 Below low normal 12.0-15.3 (g/dL) Final HCT 04/30/2024 05:57:00 37.2 36.0-45.2 (%) Final MCV 04/30/2024 05:57:00 105.1 81.5-97.5 (fL) Final MCH 04/30/2024 05:57:00 31.9 27.0-34.0 (pg) Final MCHC 04/30/2024 05:57:00 30.4 32.0-36.0 (g/dL) Final RDW 04/30/2024 05:57:00 17.1 11.5-15.5 (%) Final Platelets 04/30/2024 05:57:00 683 Above high normal 140-400 (K/uL) Final MPV 04/30/2024 05:57:00 12.7 6.6-11.1 (fL) Final Nucleated erythrocytes/100 leukocytes [Ratio] in Blood by Automated count 04/30/2024 05:57:00 0 <=0 (/100 WBCs) Final Performing Location [facility] - [address] [place] [address]
--- OUTSIDE RECORDS SUMMARY | 2024-05-27 21:12 | External Medical Summary ---
Author Name Unknown Address Unknown Organization K1F:[facility] - [address] [facility]. [place] [address] Laboratory Report Ordering Provider Test Date Status MEGHAN SINGLETON 05/14/2024 06:31:00 Final Observation Date Value Abnormality Reference (Units ) Status SYNC LEUKOCYTES IN BLOOD BY AUTOMATED COUNT 05/14/2024 06:31:00 17.11 Above high normal 4.00-10.80 (K/uL) Final Neutrophils/100 leukocytes in Blood by Manual count 05/14/2024 06:31:00 90.0 Above high normal 40.0-75.0 (%) Final Lymphocytes/100 leukocytes in Blood by Manual count 05/14/2024 06:31:00 4.0 Below low normal 18.0-42.0 (%) Final Monocytes/100 leukocytes in Blood by Manual count 05/14/2024 06:31:00 2.0 1.0-11.0 (%) Final Eosinophils/100 leukocytes in Blood by Manual count 05/14/2024 06:31:00 2.0 0.0-6.0 (%) Final Basophils/100 leukocytes in Blood by Manual count 05/14/2024 06:31:00 2.0 0.0-2.0 (%) Final Neutrophils [#/volume] in Blood by Manual count 05/14/2024 06:31:00 15.40 Above high normal 1.80-7.70 (K/uL) Final Lymphocytes [#/volume] in Blood by Manual count 05/14/2024 06:31:00 0.68 Below low normal 1.00-4.80 (K/uL) Final Monocytes [#/volume] in Blood by Manual count 05/14/2024 06:31:00 0.34 0.00-1.10 (K/uL) Final Eosinophils [#/volume] in Blood by Manual count 05/14/2024 06:31:00 0.34 0.00-0.70 (K/uL) Final Basophils [#/volume] in Blood by Manual count 05/14/2024 06:31:00 0.34 Above high normal 0.00-0.20 (K/uL) Final Giant platelets [Presence] in Blood by Light microscopy 05/14/2024 06:31:00 Present Abnormal None Seen Final Performing Location [facility] - [address] [place] [address]
--- OUTSIDE RECORDS SUMMARY | 2024-05-27 21:12 | External Medical Summary | Summary of Care ---
Author Name Unknown Organization [facility] Address [address] [facility] [address] Phone [phone] Care Team Providers Care Candle Extrusion Machine Operator Name Role Phone Roby Chandra MD Primary Care Provider Encounter Details Date Type Department Care Team (Late st Contact Info) Description 05/03/2024 Orders Only Access Center, [address] *DO NOT REMOVE THIS DEPARTMENT* [place] [address] Requisition, External Radiology [address] [place] [address] Age-related osteoporosis without current pathological fracture*; Displaced intertrochanteric fracture of left femur, initial encounter for closed fracture (HCC) Allergies Active Allergy Reactions Criticality Noted Date [...] as of this encounter (statuses as of 05/03/2024) Medications PRILOSEC 20 MG PO CPDR Take 1 Capsule by mouth in the morning. Can take extra cap for "heartburn". Active Calcium Carbonate-Vit D-Min (GNP CALCIUM 1200) 0825-4625 MG-UNIT CHEW Take 1 Capsule by mouth daily. Takes capsule not chews 9 Active Magnesium 500 MG Oral Capsule Take 1 Capsule by mouth in the morning. Active Vitamin B 12 500 MCG Oral Tablet Take 1 Tablet by mouth every morning. Active OneTouch Ultra In Vitro Strip (Glucose Blood)Indications :Type 2 diabetes mellitus with hemoglobin A1c goal of less than 7.0% ([facility]) TEST TWICE A DAY FOR TYPE 2 [...] Tablet before bedtime. Active OneTouch Delica Plus [id number] ons:Routine medical exam USE TO TEST BLOOD [...] hemoglobin A1c goal of less than 7.0% ([facility]) Use as directed. Use to check blood [...] as of this encounter (statuses as of 05/03/2024) Active Problems Problem Noted Date Diagnosed Date [...] as of this encounter (statuses as of 05/03/2024) Resolved Problems Problem Noted Date Diagnosed Date [...] 10/27/2017:Stage IA(pT1b, pN0, cM0, G1, ER: Positive, IA: Negative, HER2: Negative, Oncotype DX score: 22) [...] as of this encounter (statuses as of 05/03/2024) Immunizations Name Administration Dates Next Due COVID-19 mRNA, LNP-s, No Pre serve, 2-Dose Series ([employer]) 11/18/2020,04/24/2020,03/20/2020 COVID-19, LNP-s, No Preserve , Trip-sucrose, Ages 12+ ([employer]) 05/14/2021 Covid-19, Mrna, Lnp-s, Pf, B ivalent, 30 Mcg, IM, 12 yrs and above ([employer]) 11/14/2021 H1N1 2009 Influenza, IM 01/16/2009 Pneumococcal [...] Care Team (Late st Contact Info) Description 05/06/2024 10:00 AM EDT Appointment Radiology, [address] [place] [id number] 06/01/2024 3:00 PM EDT Hem/Onc Treatment Hematology/Oncology Treatment, [place] [address] [place] [phone] Brianna, Chair 6 Hem Onc Scenery [address] [place] [address] 07/20/2024 12:15 PM EDT Office Visit Interventional Pain Center, [facility] [address] [facility] [place] [address] Dwayne Harris DO [address] [facility] [place] [phone] 07/20/2024 2:00 PM EDT Office Visit Cardiology, [place] [address] [facility] [place] [address] Zonia Park PA-C [address] [facility] [place] [address] 09/07/2024 11:00 AM EDT Office Visit Dermatology, [address] [place] [address] [place] [address] Michaelle Lopez PA-C [address] [place] [address] 11/04/2024 3:00 PM EDT Office Visit Hematology/Oncology [facility] [place] [phone] Anton Stinson MD [address] [place] [address] 11/05/2024 8:00 AM EDT Office Visit Gynecology/Obstetrics , [place] [address] [facility] [place] [address] Radha Meadows MD [address] [place] [address] Scheduled Orders Name Type Priority Associated Diagnoses Orde r Schedule DEXA SCAN/BONE MINERAL AXIAL Medical Imaging Routine Age-related osteoporosis without current pathological fracture Displaced intertrochanteric fracture of left femur, initial encounter for closed fracture (HCC) Expected: 05/03/2024, Expires: 06/03/2025 Scheduled Procedures Name Priority Associated Diagnoses Date/Ti [...] history exists Depression Screening 04/05/2025 04/05/2024 GFR 04/30/2025 04/30/2024, 04/10, 04/07/2024, Additional history exists Colonoscopy 09/12/2025 09/12/2022, 08/0 04/2022, 08/04/2019, Additional history exists DXA Scan 11/28/2025 11/28/2020, 07/12, 04/05/2014, Additional history exists DTap/Tdap Vaccines (4 - [...] as of this encounter Visit Diagnoses Diagnosis Age-related osteoporosis without current pathological fracture- Primary Senile osteoporosis Displaced intertrochanteric fracture of left femur, initial encounter for closed fracture (HCC) documented in this encounter Care Teams Candle Extrusion Machine Operator Relationship Specialty Start Date End Date Roby Chandra MD [address] [place] [address] [place] [address] PCP - General Family Medicine 04/05/24 documented as of this encounter
--- OUTSIDE RECORDS SUMMARY | 2024-05-27 21:12 | External Medical Summary | Summary of Care ---
Author Name Unknown Organization [facility] Address [address] [place] [address] Phone [phone] Care Team Providers Care Uc Architect Name Role Phone Roby Chandra MD Primary Care Provider Encounter Details Date Type Department Care Team (Latest Contact Info) Description 05/06/2024 10:00 AM EDT - 05/06/2024 11:59 PM EDT Hospital Encounter Radiology, [facility] [address] [place], [place] [id number] Arrived Discharge Disposition: Home - Self Care Allergies Active Allergy Reactions Criticality Noted Date [...] Active Calcium Carbonate-Vit D-Min (GNP CALCIUM 1200) 9109-7394 MG-UNIT CHEW Take 1 Capsule by mouth daily. Takes capsule not chews 9 Active Magnesium 500 MG Oral Capsule Take 1 Capsule by mouth in the morning. Active Vitamin B 12 500 MCG Oral Tablet Take 1 Tablet by mouth every morning. Active OneTouch Ultra In Vitro Strip (Glucose Blood)Indications :Type 2 diabetes mellitus with hemoglobin A1c goal of less than 7.0% ([facility]) TEST TWICE A DAY FOR TYPE 2 [...] Tablet before bedtime. Active OneTouch Delica Plus [id number] ons:Routine medical exam USE TO TEST BLOOD [...] hemoglobin A1c goal of less than 7.0% ([facility]) Use as directed. Use to check blood [...] TWICE A DAY 180 Tablet 1 Active documented as of this encounter (statuses [...] 10/27/2017:Stage IA(pT1b, pN0, cM0, G1, ER: Positive, NV: Negative, HER2: Negative, Oncotype DX score: 22) - Signed by Anton Stinson MD on 10/27/2017 Type 2 diabetes mellitus wit h diabetic cataract 04/08/2017 02/20/2021 Right acute serous otitis media 04/02/2017 04/10/2018 Hx of actinic keratosis 06/18/2016 03/0 02/2018 Hx of basal cell carcinoma 06/18/2016 [...] mRNA, LNP-s, No Pre serve, 2-Dose Series (SOLEM Electronique) 11/18/2020,04/24/2020,03/20/2020 COVID-19, LNP-s, No Preserve , Trip-sucrose, Ages 12+ (Pfizer) 05/14/2021 Covid-19, Mrna, Lnp-s, Pf, B ivalent, 30 Mcg, IM, 12 yrs and above (SOLEM Electronique) 11/14/2021 H1N1 2009 Influenza, IM 01/16/2009 Pneumococcal [...] Description 05/27/2024 2:00 PM EDT Appointment Radiology, [facility] [address] [place] [address] 05/27/2024 2:45 PM EDT Appointment Radiology, [facility] [address] [place] [address] 06/01/2024 3:00 PM EDT Hem/Onc Treatment Hematology/Oncology Treatment, [place] [address] [place] [phone] Brianna, Chair 6 Hem Onc Scenery [address] [place] [address] 07/20/2024 12:15 PM EDT Office Visit Interventional Pain Center, [facility] [address] [facility] [place] [address] Dwayne Harris DO 400 [place] [address] 07/20/2024 2:00 PM EDT Office Visit Cardiology, [place] [address] [facility] [place] [address] Zonia Park PA-C [address] [place] [address] 09/07/2024 11:00 AM EDT Office Visit Dermatology, [place] Abdi [place] [address] [place] [address] Michaelle Lopez PA-C [address] [place] [address] 11/04/2024 3:00 PM EDT Office Visit Hematology/Oncology [facility] [address] [facility], [place] [address] Anton Stinson MD 200 [facility], [place] [address] 11/05/2024 8:00 AM EDT Office Visit Gynecology/Obstetrics , [place] [address] [facility] [place] [address] Radha Meadows MD [address] [place] [address] Scheduled Procedures Name Priority Associated Diagnoses Date/Ti [...] Not on filedocumented as of this encounter Procedures Procedure Name Priority Date/Time Associated Diagnosis Comments DEXA SCAN/BONE MINERAL AXIAL Routine 05/06/2024 10:21 AM EDT Age-related osteoporosis without current pathological fracture Displaced intertrochanteric fracture of left femur, initial encounter for closed fracture (HCC) documented in this encounter Results * DEXA SCAN/BONE MINERAL AXIAL (05/06/2024 10:21 AM EDT) Anatomical Region Laterality Modality Dexa, Vertebra, Spine, Hip, Pelvis Nuclear Medicine Impressions 05/06/2024 1:27 PM EDT S: Fracture risk is based on current National Osteoporosis Foundation (www.nof.org) Clinicians Guide and [place] Association of Clinical Endocrinology (AACE) Guidelines (www.aace.com) and the application of current WHO FRAX tool (https://www.debbie.ac.uk/FRAX/) as well as the 2017 [place] [employer]umatology Glucocorticoid Induced Osteoporosis (GIOP) Guidelines (rheumatology.org/Practice-Quality/Clinical-Support/Oqgoqntc-Picjfpji-Mqrjw lines) using Bone mineral density derived T-scores and clinical risk factors obtained from the patient questionnaire. 1. The fracture risk is HIGH (based on 10 year absolute risk for major osteoporotic fracture of at least 20% and/or risk for hip fracture of at least 3%) 2. The quality of the examination is GOOD. 3. No previous study for comparison. DEXA machine was recently upgraded so comparison study can not be made SUGGESTIONS: Information concerning the evaluation and treatment of osteoporosis can be found at the National Osteoporosis Foundation website (www.nof.org) and [place] Association of Clinical Endocrinology (AACE-www.aace.com). Osteoporosis prevention and treatment begins by modifying risk factors (such as smoking cessation and avoiding alcohol excess) and by participating in weight-bearing activities and exercise. Issues related to fall prevention and home safety should be addressed. Current NOF guidelines suggest 1200 to 1500 mg of calcium from diet and or supplemental sources. It is generally felt best to get calcium from one s diet. Calcium carbonate and calcium citrate are common calcium supplement choices in most local pharmacies. If the patient is taking a proton pump inhibitor, then calcium citrate should be the preferred supplement, if that is necessary. NOF guidelines for vitamin D are 800 to 1000 units of vitamin D3 daily. However, this may best be guided by measurement of 25-OH vitamin-D level, aiming for a level between 30 to 50 units (ng/ml). Additional information can be found at the FRAX website (https://www.debbie.ac.uk/FRAX/), and the [place] College of Rheumatology website (https://www.rheumatology.org/Practice-Quality/Clinical-Support/Clinical-Pr actice-Guidelines). 1. Treatment with a bisphosphonate (such as Fosamax/Alendronate, Actonel/Risedronate, or Boniva/Ibandronate) should be considered. If the patient is unable to use an oral bisphosphonate, another agent such as IV bisphosphonates (Boniva/Ibandronate or Reclast/Zoledronic Acid ), Prolia/Denosumab Forteo/Teriparatide, Tymlos/Abaloparatide, Evenity/Romosozumab, or a selective estrogen receptor modulator (Evista/Raloxifene) should be considered. Secondary causes of low bone density should be considered. A 25-OH Vitamin D, serum calcium, and creatinine should be obtained. Other studies can be considered which would include a PTH, IEP, TSH, or Testosterone (in men). (For users of TapMe, there is an osteoporosis Smart Set #1146). 2. A repeat study should be considered in 2 years, after therapy is started PEDRO US M.D. ISCD Certified Clinical Placement Manager Department of Rheumatology [facility], [place], [facility] Narrative 05/06/2024 1:27 PM EDT Radiology, [facility] DXA Performed: 05/06/24 DXA Resulted: 05/06/2024 Eunice Lucas Isai Reason for testing: estrogen deficient woman at clinical risk Osteoporosis treatment (per questionnaire): A. Previous treatment: Fosamax/Alendronate 6723-0182 B. Current treatment: NONE Major risk factors: personal history of fracture after age 50, femur fracture, other fracture Using a [employer] [place] images of the right hip, left forearm were obtained using DXA.. The bone mineral density and T scores [standard, young, normal, female population] are as follows: RESULTS: Left forearm: 0.674 gms/cm2 T-score: -0.3 Right femoral neck: 0.640 gms/cm2 T-score: -1.9 Using the NOF/WHO FRAX calculator, the 10 year absolute risk for any major osteoporotic fracture is 19 % and the risk for hip fracture is 4.8 %. Claude Argueta MD RADIOLOGY ([facility]) Final Result documented in this encounter Visit Diagnoses Diagnosis Age-related osteoporosis without current pathological fracture Senile osteoporosis Displaced intertrochanteric fracture of left femur, initial encounter for closed fracture (HCC) documented in this encounter Care Teams Uc Architect Relationship Specialty Start Date End Date Roby Chandra MD [address] [place] [address] PCP - General Family Medicine 04/05/24 documented as of this encounter
--- OUTSIDE RECORDS SUMMARY | 2024-05-27 21:12 | External Medical Summary ---
Author Name Unknown Address Unknown Organization K1F:[facility] - [address] [place] [address] Laboratory Report Ordering Provider Test Date Status VILMA SIMMS 05/07/2024 06:28:00 Final Observation Date Value Abnormality Reference (Units ) Status BUN 05/07/2024 06:28:00 11 6-20 (mg/dL) Final Creatinine 05/07/2024 06:28:00 0.7 0.5-1.0 (mg/dL) Final Glomerular filtration rate/1.73 sq M.predicted [Volume Rate/Area] in Serum, Plasma or Blood by Creatinine-based formula (CKD-EPI) 05/07/2024 06:28:00 87 >=60 (mL/min) Final eGFR is calculated based on the CKD-EPI 2020 equation. Sodium 05/07/2024 06:28:00 140 135-146 (m mol/L) Final Potassium 05/07/2024 06:28:00 4.3 3.5-5.1 (m mol/L) Final Cl 05/07/2024 06:28:00 102 98-107 (mm ol/L) Final CO2 05/07/2024 06:28:00 26 22-32 (mmo l/L) Final Anion gap 05/07/2024 06:28:00 12 7-15 (mmol /L) Final Glucose 05/07/2024 06:28:00 90 70-120 (mg /dL) Final Calcium 05/07/2024 06:28:00 8.7 8.4-10.2 ( mg/dL) Final Performing Location [facility] - [address] [place] [address]
--- OUTSIDE RECORDS SUMMARY | 2024-05-27 21:12 | External Medical Summary | Summary of Care ---
Author Name Unknown Organization [facility] Address [address] [place] [address] Phone [phone] Care Team Providers Care Fashion Artist Name Role Phone Roby Chandra MD Primary Care Provider Reason for Visit * Reason Onset Date Comments Advice 05/07/2024 Milad Encounter Details Date Type Department Care Team (Late st Contact Info) Description 05/07/2024 Telephone Hematology/Oncology [facility] [address] [facility] [place] [address] Services, Scheduling [address] [place] [address] Advice (Milad) Allergies Active Allergy Reactions Criticality [...] Active Calcium Carbonate-Vit D-Min (GNP CALCIUM 1200) 4223-5435 MG-UNIT CHEW Take 1 Capsule by mouth daily. Takes capsule not chews 9 Active Magnesium 500 MG Oral Capsule Take 1 Capsule by mouth in the morning. Active Vitamin B 12 500 MCG Oral Tablet Take 1 Tablet by mouth every morning. Active OneTouch Ultra In Vitro Strip (Glucose Blood)Indications :Type 2 diabetes mellitus with hemoglobin A1c goal of less than 7.0% ([facility]) TEST TWICE A DAY FOR TYPE [...] Tablet before bedtime. Active OneTouch Delica Plus [id number] ons:Routine medical exam USE TO TEST BLOOD [...] hemoglobin A1c goal of less than 7.0% ([facility]) Use as directed. Use to check [...] 10/27/2017:Stage IA(pT1b, pN0, cM0, G1, ER: Positive, MS: Negative, HER2: Negative, Oncotype DX score: 22) [...] mRNA, LNP-s, No Pre serve, 2-Dose Series (docTrackr) 11/18/2020,04/24/2020,03/20/2020 COVID-19, LNP-s, No Preserve , Trip-sucrose, Ages 12+ (docTrackr) 05/14/2021 Covid-19, Mrna, Lnp-s, Pf, B ivalent, 30 Mcg, IM, 12 yrs and above (docTrackr) 11/14/2021 H1N1 2009 Influenza, IM 01/16/2009 Pneumococcal [...] US order. Would like this done in [place]. Scheduling: please follow up with patient to [...] not able to get in to see MANAGER CLINICAL INFORMATICS until October. At her appointment last week, [...] Description 05/27/2024 2:00 PM EDT Appoint[address], [address] [place] [address] 05/27/2024 2:45 PM EDT Appointment Radiology, [address] [place] [address] 06/01/2024 3:00 PM EDT Hem/Onc Treatment Hematology/Oncology Treatment, [place] [address] [place] [phone] Brianna, Chair 6 Hem Onc Scenery [address] [place] [address] 07/20/2024 12:15 PM EDT Office Visit Interventional Pain Center, [address] [place] [address] Dwayne Harris, DO 400 [facility] [place], [place] [address] 07/20/2024 2:00 PM EDT Office Visit Cardiology, [place] 400 [facility] [place] [address] Zonia Park PA-C 400 [facility] [place], [place] [phone] 09/07/2024 11:00 AM EDT Office Visit Dermatology, Nida Abdi [place] [address] [place] [address] Michaelle Lopez PA-C [address] [place] [address] 11/04/2024 3:00 PM EDT Office Visit Hematology/Oncology [facility] 200 [facility] [place] [phone] Anton Stinson MD 200 [facility] [place] [address] 11/05/2024 8:00 AM EDT Office Visit Gynecology/Obstetrics , [place] 400 [facility] [place] [address] Radha Meadows MD [address] [place] [address] Scheduled Orders Name Type Priority Associated Diagnoses [...] Primary documented in this encounter Care Teams Fashion Artist Relationship Specialty Start Date End Date Roby Chandra MD [address] [place] [address] PCP - General Family Medicine 04/05/24 documented as of this encounter
[2024-05-28 08:07] LABS: BUN Creatinine Ratio 17.5 (10-20); Calcium 8.5 mg/dl (8.6-10.3); Creatinine Clr Calc Pharmacy 55.5 ml/min; Potassium 3.9 mmol/L (3.5-5.1)
[2024-05-28 08:10] LABS: Hematocrit (blood only) 34.6 % (37.0-47.0); Hemoglobin 10.5 g/dl (12.0-16.0); Mean Corpuscular Hemoglobin 31.2 pg (25.0-34.0); Mean Corpuscular Hgb Conc 30.3 g/dL (32.0-36.0); Mean Corpuscular Volume 102.7 fL (80.0-100.0); Mean Platelet Volume 12.9 fL (9.4-12.4); Platelet Count 456 K/uL (130-400); RDW Coefficient of Variation 16.2 % (11.5-14.5); RDW Standard Deviation 60.9 fL (36.4-46.3); Red Blood Count 3.37 M/uL (4.20-5.40)
[2024-05-28 08:18] LABS: Basophils # (auto) 0.26 K/uL (0.00-0.20); Basophils % (auto) 1.2 %; Eosinophils # (auto) 0.38 K/uL (0.00-0.50); Eosinophils % (auto) 1.7 %; Immature Granulocytes # (auto) 0.24 K/uL (0.01-0.20); Immature Granulocytes % (auto) 1.1 %; Lymphocytes # (auto) 1.12 K/uL (1.20-3.40); Monocytes # (auto) 0.84 K/uL (0.11-0.59); Monocytes % (auto) 3.7 %; Neutrophils # (auto) 19.66 K/uL (1.40-6.50); Neutrophils % (auto) 87.3 %
[2024-05-28] MEDS: ATORVASTATIN 20 MG TAB PO SCH (08:50)
[2024-05-28] MEDS: CYANOCOBALAMIN (B-12) 500 MCG TABLET PO SCH (08:51)
[2024-05-28] MEDS: LORATADINE 10 MG TAB PO SCH (08:52)
[2024-05-28] MEDS: LOSARTAN POTASSIUM 25 MG TAB PO SCH (08:52)
[2024-05-28] MEDS: PANTOprazole 40 MG TAB PO SCH (08:53)
--- NOTE | 2024-05-28 09:06 | CT Scan Report ---
CT thoracic spine wo con CLINICAL HISTORY: T9 compresion fracture COMPARISON STUDY: Chest CT of the same day FINDINGS: There is an acute fracture at the T9 vertebral body with mild to moderate height loss. Ther e is mild retropulsion of the posterior superior aspect of the T9 vertebral body without significant central canal narrowing. No other fracture or subluxation seen at the thoracic spine. IMPRESSION: Acute fracture at the T9 vertebral body. ACT 112: Negative or not required by law. Electronically signed by: Dre Campbell M.D. 05/28/2024 9:04 AM
[2024-05-28] MEDS: HYDROXYUREA 500 MG CAP PO SCH (09:52)
[2024-05-28] MEDS ORDERED: OXYMETAZOLINE 0.05% 30 ML BTL PRN (11:55)
[2024-05-28] MEDS ORDERED: SODIUM CHLORIDE 0.65% NA SOLN 45 ML (OCEAN) PRN (11:56)
[2024-05-28] MEDS: FUROSEMIDE INJ 20 MG/2 ML VIAL IV ONE (12:43)
--- NOTE | 2024-05-28 13:07 | Orthopedic Consultation ---
Date of Consultation May 28, 2024 Assessment & Plan (1) Closed compression fracture of thoracic vertebra: Patient presents status post fall resulting in a T9 burst fracture. Stable intrinsically. I have reviewed the findings with the patient and family members who are in the room. She does have tenderness which is to be expected. Due to her falls risk from her recent hip fracture in this fall I believe she would benefit from utilizing a TLSO anytime she is up and walking. She does not need it when she is sitting quietly in a chair she does not need it for sleep at night. When she goes to get up out of bed she should have it in place. I have ordered the brace for her. Once the brace arrives she may be up with physical therapy and Occupational Therapy. She likely is going to need another short stay in rehab to become stronger. I would see her in the office approximately 4 weeks out for repeat x-rays upright in her brace. There is no indication for any type of surgical intervention at this point. Dr. Ambrosio and I both reviewed the films as well as the treatment plan he agrees. History of Present Illness Attending Physician: Magnus Villatoro MD History of Present Illness Patient is a 79-year-old female with history of frequent falls. She is just recovering from intertrochanteric nail for reverse obliquity inotrope fracture that was done early last month. While walking at her daughter's house getting through the bathroom she had got her walker stuck and had fallen directly on the right-hand side hitting the tub. She had immediate onset of pain she was unable to get up on her own and presented to the emergency room on 05/27/2024. She had multiple CT scans done and the most predominant injury was a T9 burst fracture. She is not have any radicular complaints at this point she does have pain in the back. She not have any pain or weakness in the legs other than her baseline. She does not have any difficulties breathing or shortness of breath. She does have some pain in the ribs themselves but is not radicular in nature. She denies any other numbness, tingling, or paresthesias. Allergies Allergy/AdvReac Type Severity Reaction Status Date / Time adhesive tape Allergy Intermediate Hives Verified 04/14/24 09:05 Iodinated Contrast Media Allergy Intermediate HIVES TO Verified 04/14/24 09:05 RADIO OPAQUE CONTRAST iodine Allergy Intermediate HIVES- Verified 04/14/24 09:05 ALSO SEAFOOD-HIVES iothalamate sodium Allergy Intermediate Hives Verified 04/14/24 09:05 latex Allergy Intermediate HIVES Verified 04/14/24 09:05 morphine Allergy Intermediate hives Verified 04/14/24 09:05 hydrocodone AdvReac Mild BAD TASTE Verified 04/14/24 09:05 IN MOUTH lactose AdvReac Mild INTOLERANT Verified 04/14/24 09:05 sulindac [From Clinoril] AdvReac Mild "Out of Verified 04/14/24 09:05 body experience" Home Medications Medication Instructions Recorded Confirmed Type olmesartan 5 mg tablet (Benicar) 5 mg PO QAM 07/02/23 05/27/24 History acetaminophen 650 mg 650 mg PO QID #100 tabs 04/16/24 05/27/24 Rx tablet,extended release apixaban 5 mg tablet (Eliquis) 5 mg PO BID #60 tabs 04/16/24 05/27/24 Rx atorvastatin 20 mg tablet 20 mg PO QAM #30 tabs 04/16/24 05/27/24 Rx calcium 600 mg (as 1 tab PO BID #60 tabs 04/16/24 05/27/24 Rx carbonate)-vitamin D3 5 mcg (200 unit) tablet cyanocobalamin (vitamin B-12) 500 500 mcg PO QAM #30 tabs 04/16/24 05/27/24 Rx mcg tablet (Vitamin B-12) fluticasone propionate 50 1 spray intranasal BID PRN 04/16/24 05/27/24 Rx mcg/actuation nasal Congestion #1 g spray,suspension gabapentin 300 mg capsule 300 mg PO TID #90 caps 04/16/24 05/27/24 Rx hydroxyurea 500 mg capsule 500 mg PO QAM #30 caps 04/16/24 05/27/24 Rx hydroxyzine HCl 10 mg tablet 10 mg PO QID PRN Itching #30 tabs 04/16/24 05/27/24 Rx omeprazole 20 mg capsule,delayed 20 mg PO QAM #30 caps 04/16/24 05/27/24 Rx release albuterol sulfate 90 mcg/actuation 2 puff inhalation Q6H PRN cough or 05/27/24 05/27/24 History aerosol inhaler wheezing diclofenac sodium 1 % topical gel 2 g topical QID PRN Pain 05/27/24 05/27/24 History furosemide 40 mg tablet 20 mg PO DAILY PRN swelling 05/27/24 05/27/24 History loratadine 10 mg tablet 10 mg PO DAILY 05/27/24 05/27/24 History lorazepam 0.5 mg tablet 0.5 mg PO BID PRN Anxiety 05/27/24 05/27/24 History metformin 500 mg tablet 500 mg PO BID 05/27/24 05/27/24 History Patient History Medical History Paroxysmal atrial fibrillation Bladder cancer Diabetes mellitus, type 2 Seasonal allergies Polycythemia vera GERD (gastroesophageal reflux disease) History of breast cancer Rt breast 2017. surgery + radiation >no limb restriction TMJ (temporomandibular joint disorder) hx locking History of migraine History of DVT (deep vein thrombosis) LLE following travel Hearing deficit BL LAW Hypertension Dyslipidemia Surgical History History of cystoscopy bladder biopsy, fulguration>09/2022 [place] History of dilatation and curettage endometrial fibroid removed History of hysteroscopy uterine fibroid removed History of transurethral resection of bladder tumor (TURBT) 06/11/2223 Grade 1 view, MAC 3, ETT 7. History of breast biopsy History of foot surgery Rt x 2 History of colonoscopy History of lumpectomy of right breast History of cataract surgery rt/left Status post blepharoplasty of both eyes History of facelift Hx laparoscopic cholecystectomy History of arthroplasty of left knee Family History Mother , 89yo;Oxygen dependent;"bowel leak", HTN No problems noted. Father , 68yo;smoker, [place], poor circulation No problems noted. Brother No problems noted. Son No problems noted. Daughter No problems noted. Other No family history of adverse response to anesthesia Social History Smoking Status: Never smoker Tobacco Type: Cigarettes Second Hand Exposure: Yes (as a child); Do You Dip or Chew Tobacco: No; Hx Alcohol Use: No Hx Substance Use: No Preferred Language: Mexican Communication Ability: Effective Visual Impairment: No Limitations Hearing Ability: Hard of Hearing Control Systems Developer Required: No Beliefs That Will Affect Care: None Current Living Situation: Alone Current Living Situation Comment: Lives independently at [facility]. Other Information That Helps Us Care for You: No Feels Safe at Home: Yes Safety Concerns: Feels Safe At This Time Assistive Devices: Hospital Bed and Walker Physical Exam Physical Exam: On exam she is seen in the bed she answers questions appropriately. She is alert and oriented. She is in no apparent distress. She has some tenderness just below the scapular angle. She is tender to percussion as well. She is nontender in the ribs themselves. Lower extremity motor exam reveals no focal atrophy strength and sensation are both intact her gait was not observed. Cardiovascular exam reveals no gross abnormalities her breathing is nonlabored. Her visual chapin are grossly intact. Results & Data Vital Signs (Past 12 Hours) Vital Signs Temp Pulse Resp BP Pulse Ox O2 Del Method O2 Flow Rate 05/28/24 08:15 Nasal Cannula 2 05/28/24 07:13 36.6 C 74 16 145/76 H 97 Nasal Cannula [address] scan of the thoracic spine was reviewed. This reveals a T9 compression fracture with approximately 30% anterior height loss. There is extension of the middle column with 2 to 3 mm retropulsed fragments. There is trace of spondylolisthesis of T8 on T9 as well. There is no extension into the posterior column. Do not appreciate any spinous process fractures or any splaying of the spinous processes. (1) Closed compression fracture of thoracic vertebra Encounter type: initial encounter Qualified Code(s): S22.000A - Wedge compression fracture of unspecified thoracic vertebra, initial encounter for closed fracture
[2024-05-28] MEDS ORDERED: POLYETHYLENE (MIRALAX) 17 GM PACK PO PRN (15:51)
--- NOTE | 2024-05-28 15:56 | Hospitalist Progress Note ---
Date of Service May 28, 2024 Assessment & Plan (1) Closed compression fracture of thoracic vertebra: (2) Fall: (3) Polycythemia vera: (4) Diabetes mellitus, type 2: (5) Paroxysmal atrial fibrillation: (6) GERD (gastroesophageal reflux disease): (7) Hypertension: (8) Dyslipidemia: Plan Patient is a is 79 yr female with DM2, PAF on AC, HTN, dyslipidemia, HFpEF, hx bladder CA (s/p TURP 07/02), polycythemia vera (JAK2 positive), hx breast cancer, remote hx DVT, and other history as listed below who presents to the ED today with a fall. Work-up in the ED including singh CT per protocol revealed an acute T9 compression/burst fracture with 3 mm retropulsion and mild paravertebral edema but no other significant fracture noted. Specifically no interval fracture or hardware complication noted in the left hip. Pt was referred for admission for further management of fracture. Mechanical Fall - loss of balance, no syncope Acute T9 compression/burst fracture --CT T-Spine:Acute fracture at the T9 vertebral body. --Hip X ray:No interval fracture seen. Stable alignment at the proximal left femur fracture. --L Spine CT: No lumbar spine fracture seen. --CT head:No acute intracranial abnormality. Fall precautions PT OT Bowel regimen to prevent constipation Pain control as needed Appreciate orthopedic spine input: Utilize TLSO brace with activity. No surgical intervention needed. Needs follow-up with orthopedics on discharge with repeat imaging in 4 weeks May need rehab placement Leukocytosis -likely due to polycythemia vera, partly reactive Diarrhea UA suggestive of UTI No other obvious source of infection Stool for C. difficile pending Will hold off antibiotics for now Hypoxia ? Mild congestion on CXR ? Due to shallow breathing due to pain Lasix as needed at home Will check echo Incentive spirometry Supplemental oxygen as needed Abnormal EKG Mild troponin elevation likely demand ischemia Denies chest pain, dyspnea Echo pending Hypokalemia Replete and monitor Thyroid nodules Incidental finding Check TSH Advised to follow-up with PCP as outpatient Polycythemia vera -Continue hydroxyurea DM II Continue insulin per protocol Monitor blood glucose levels PAF on chronic AC continue Eliquis Not on rate or rhythm control medications monitor Hypertension Dyslipidemia continue home meds DVT Px: Eliquis CODE STATUS Full code Disposition PT OT prior to discharge Admission and Anticipated Discharge Date Admission Date: May 27, 2024 Subjective Patient is seen and examined at bedside States having back pain and some left hip pain with activity Also reports nasal congestion Denies any chest pain, dyspnea, nausea, vomiting, abdominal pain Family at bedside No other complaints today Review of Systems Review of Systems: All systems reviewed & are unremarkable except as noted in Subjective Physical Exam Physical Exam: Physical Exam: Vitals signs as noted above General Appearance:Thin, frail, no apparent distress Head: normocephalic, Atraumatic Eyes: normal inspection, EOMI Neck: supple, Trachea midline Respiratory/Chest: Normal breath sounds, CTA, No accessory muscle use Cardiovascular: S1, S2, No murmur Abdomen/GI:Soft, Non tender, Bowel sounds present Back+ Tenderness Extremities/Musculoskeletal:normal inspection, no edema Neurologic/Psych:AAOX3, grossly no focal neurological deficits Skin: normal color, warm, +Left hip surgical scar well healing Results & Data Results & Data Vital Signs (Past 12 Hours) Vital Signs Temp Pulse Resp BP Pulse Ox O2 Del Method O2 Flow Rate 05/28/24 14:35 36.6 C 94 H 16 125/76 93 Room Air 05/28/24 08:15 Nasal Cannula 2 05/28/24 07:13 36.6 C 74 16 145/76 H 97 Nasal Cannula 1 Laboratory Results Short CBC 05/28/24 Range/Units 07:21 WBC 22.50 H (4.8-10.8) K/ul Hgb 10.5 L (12.0-16.0) g/dl Hct 34.6 L (37.0-47.0) % Plt Count 456 H (130-400) K/uL BMP 05/28/24 07:21 Sodium 143 Potassium 3.9 Chloride 105 Carbon Dioxide 33 H BUN 11 Creatinine 0.63 Glucose 91 Calcium 8.5 L Urine 05/27/24 Range/Units 17:47 Urine Color Yellow Urine Appearance Clear (Clear) Urine pH 8.0 H (4.5-7.5) Ur Specific [place] [employer] 1.006 (1.000-1.030) Urine Protein Negative (Negative) Urine Glucose (UA) Negative (Negative) (1) Closed compression fracture of thoracic vertebra Encounter type: initial encounter Qualified Code(s): S22.000A - Wedge compression fracture of unspecified thoracic vertebra, initial encounter for closed fracture (2) Fall Encounter type: initial encounter Qualified Code(s): W19.XXXA - Unspecified fall, initial encounter (4) Diabetes mellitus, type 2 Diabetes mellitus assisted insulin use: without termite exterminator use Diabetes mellitus complication status: with other specified complication Qualified Code(s): E11.69 - Type 2 diabetes mellitus with other specified complication (6) GERD (gastroesophageal reflux disease) Esophagitis presence: esophagitis presence not specified Qualified Code(s): K21.9 - Gastro-esophageal reflux disease without esophagitis (7) Hypertension Hypertension type: unspecified Qualified Code(s): I10 - Essential (primary) h ypertension
[2024-05-28] MEDS: LORazepam 0.5 MG TAB PO PRN (17:24)
[2024-05-28] MEDS: oxyCODONE HCL IR 5 MG TAB (IMMEDIATE RELEASE) PO PRN (21:46)
[2024-05-29 06:37] LABS: BUN Creatinine Ratio 18.1 (10-20); Calcium 8.2 mg/dl (8.6-10.3); Creatinine Clr Calc Pharmacy 42.2 ml/min; Potassium 3.5 mmol/L (3.5-5.1)
[2024-05-29 06:40] LABS: Hematocrit (blood only) 34.4 % (37.0-47.0); Hemoglobin 10.6 g/dl (12.0-16.0); Mean Corpuscular Hemoglobin 31.6 pg (25.0-34.0); Mean Corpuscular Hgb Conc 30.8 g/dL (32.0-36.0); Mean Corpuscular Volume 102.7 fL (80.0-100.0); RDW Coefficient of Variation 16.3 % (11.5-14.5); RDW Standard Deviation 62.1 fL (36.4-46.3); Red Blood Count 3.35 M/uL (4.20-5.40)
[2024-05-29 06:54] LABS: Thyroid Stimulating Hormone 1.564 uIu/ml (0.300-4.500)
[2024-05-29 07:01] LABS: Mean Platelet Volume 13.2 fL (9.4-12.4); Platelet Count 473 K/uL (130-400)
[2024-05-29] MEDS: MAGNESIUM SULFATE / D5W 1 GM/100 ML BAG IV SCH (10:19)
--- NOTE | 2024-05-29 16:10 | Hospitalist Progress Note ---
Date of Service May 29, 2024 Assessment & Plan (1) Closed compression fracture of thoracic vertebra: (2) Fall: (3) Polycythemia vera: (4) Diabetes mellitus, type 2: (5) Paroxysmal atrial fibrillation: (6) GERD (gastroesophageal reflux disease): (7) Hypertension: (8) Dyslipidemia: Plan Patient is a is 79 yr female with DM2, PAF on AC, HTN, dyslipidemia, HFpEF, hx bladder CA (s/p TURP 07/02), polycythemia vera (JAK2 positive), hx breast cancer, remote hx DVT, and other history as listed below who presents to the ED today with a fall. Work-up in the ED including singh CT per protocol revealed an acute T9 compression/burst fracture with 3 mm retropulsion and mild paravertebral edema but no other significant fracture noted. Specifically no interval fracture or hardware complication noted in the left hip. Pt was referred for admission for further management of fracture. Mechanical Fall - loss of balance, no syncope Acute T9 compression/burst fracture --CT T-Spine:Acute fracture at the T9 vertebral body. --Hip X ray:No interval fracture seen. Stable alignment at the proximal left femur fracture. --L Spine CT: No lumbar spine fracture seen. --CT head:No acute intracranial abnormality. Fall precautions PT OT: Recommends rehab placement Bowel regimen to prevent constipation Pain control as needed Appreciate orthopedic spine input: Utilize TLSO brace with activity. No surgical intervention needed. Needs follow-up with orthopedics on discharge with repeat imaging in 4 weeks Will plan to discharge to rehab facility when arranged Case management to help with discharge planning Leukocytosis -likely due to polycythemia vera, partly reactive Diarrhea UA not suggestive of UTI No other obvious source of infection Stool for C. difficile negative Will hold off antibiotics for now Hypoxia ? Mild congestion on CXR ? Due to shallow breathing due to pain Lasix as needed at home Echo showed good EF Incentive spirometry Weaned off of supplemental oxygen Abnormal EKG Mild troponin elevation likely demand ischemia Troponin trended down Denies chest pain, dyspnea Echo: No wall motion abnormality on echo Hypokalemia Hypomagnesemia Replete and monitor Thyroid nodules Incidental finding Normal TSH Advised to follow-up with PCP as outpatient Polycythemia vera -Continue hydroxyurea DM II Continue insulin per protocol Monitor blood glucose levels PAF on chronic AC continue Eliquis Not on rate or rhythm control medications monitor Hypertension Dyslipidemia continue home meds DVT Px: Eliquis CODE STATUS Full code Disposition Rehab when accepted Admission and Anticipated Discharge Date Admission Date: May 27, 2024 Subjective Patient is seen and examined at bedside Less back pain today Was able to ambulate using brace today No other complaints today Denies any chest pain, dyspnea, nausea, vomiting, abdominal pain Review of Systems Review of Systems: All systems reviewed & are unremarkable except as noted in Subjective Physical Exam Physical Exam: Physical Exam: Vitals signs as noted above General Appearance:Thin, frail, no apparent distress Head: normocephalic, Atraumatic Eyes: normal inspection, EOMI Neck: supple, Trachea midline Respiratory/Chest: Normal breath sounds, CTA, No accessory muscle use Cardiovascular: S1, S2, No murmur Abdomen/GI:Soft, Non tender, Bowel sounds present Back+ Tenderness Extremities/Musculoskeletal:normal inspection, no edema Neurologic/Psych:AAOX3, grossly no focal neurological deficits Skin: normal color, warm, +Left hip surgical scar well healing Results & Data Results & Data Vital Signs (Past 12 Hours) Vital Signs Temp Pulse Resp BP Pulse Ox O2 Del Method 05/29/24 14:49 36.5 C 67 15 123/71 95 Room Air 05/29/24 07:46 37 C 66 15 143/64 H 91 Room Air Laboratory Results Short CBC 05/29/24 Range/Units 05:44 WBC 20.70 H (4.8-10.8) K/ul Hgb 10.6 L (12.0-16.0) g/dl Hct 34.4 L (37.0-47.0) % Plt Count 473 H (130-400) K/uL BMP 05/29/24 05:44 Sodium 142 Potassium 3.5 Chloride 103 Carbon Dioxide 34 H BUN 15 Creatinine 0.83 Glucose 88 Calcium 8.2 L (1) Closed compression fracture of thoracic vertebra Encounter type: initial encounter Qualified Code(s): S22.000A - Wedge compression fracture of unspecified thoracic vertebra, initial encounter for closed fracture (2) Fall Encounter type: initial encounter Qualified Code(s): W19.XXXA - Unspecified fall, initial encounter (4) Diabetes mellitus, type 2 Diabetes mellitus watermaster insulin use: without jail use Diabetes mellitus complication status: with other specified complication Qualified Code(s): E11.69 - Type 2 diabetes mellitus with other specified complication (6) GERD (gastroesophageal reflux disease) Esophagitis presence: esophagitis presence not specified Qualified Code(s): K21.9 - Gastro-esophageal reflux disease without esophagitis (7) Hypertension Hypertension type: unspecified Qualified Code(s): I10 - Essential (primary) hypertension
[2024-05-29] MEDS: FUROSEMIDE 20 MG TAB PO SCH (17:08)
[2024-05-29] MEDS: MAGNESIUM CHLORIDE W/CALCIUM 64MG DELAYED REL TAB PO SCH (20:30)
[2024-05-30 06:19] LABS: BUN Creatinine Ratio 17.8 (10-20); Calcium 8.7 mg/dl (8.6-10.3); Creatinine Clr Calc Pharmacy 47.9 ml/min; Magnesium 1.7 mg/dl (1.7-2.4); Potassium 3.9 mmol/L (3.5-5.1)
[2024-05-30 06:54] LABS: Hematocrit (blood only) 35.2 % (37.0-47.0); Hemoglobin 11.1 g/dl (12.0-16.0); Mean Corpuscular Hemoglobin 31.9 pg (25.0-34.0); Mean Corpuscular Hgb Conc 31.5 g/dL (32.0-36.0); Mean Corpuscular Volume 101.1 fL (80.0-100.0); RDW Coefficient of Variation 15.9 % (11.5-14.5); RDW Standard Deviation 58.7 fL (36.4-46.3); Red Blood Count 3.48 M/uL (4.20-5.40)
[2024-05-30 06:56] LABS: Mean Platelet Volume 13.3 fL (9.4-12.4); Platelet Count 544 K/uL (130-400); White Blood Count 21.55 K/ul (4.8-10.8)
--- NOTE | 2024-05-30 16:10 | Hospitalist Progress Note ---
Date of Service May 30, 2024 Assessment & Plan (1) Closed compression fracture of thoracic vertebra: (2) Fall: (3) Polycythemia vera: (4) Diabetes mellitus, type 2: (5) Paroxysmal atrial fibrillation: (6) GERD (gastroesophageal reflux disease): (7) Hypertension: (8) Dyslipidemia: Plan Patient is a is 79 yr female with DM2, PAF on AC, HTN, dyslipidemia, HFpEF, hx bladder CA (s/p TURP 07/02), polycythemia vera (JAK2 positive), hx breast cancer, remote hx DVT, and other history as listed below who presents to the ED today with a fall. Work-up in the ED including singh CT per protocol revealed an acute T9 compression/burst fracture with 3 mm retropulsion and mild paravertebral edema but no other significant fracture noted. Specifically no interval fracture or hardware complication noted in the left hip. Pt was referred for admission for further management of fracture. Mechanical Fall - loss of balance, no syncope Acute T9 compression/burst fracture --CT T-Spine:Acute fracture at the T9 vertebral body. --Hip X ray:No interval fracture seen. Stable alignment at the proximal left femur fracture. --L Spine CT: No lumbar spine fracture seen. --CT head:No acute intracranial abnormality. Fall precautions PT OT: Recommends rehab placement Bowel regimen to prevent constipation Pain control as needed Appreciate orthopedic spine input: Utilize TLSO brace with activity. No surgical intervention needed. Needs follow-up with orthopedics on discharge with repeat imaging in 4 weeks Waiting for placement to rehab Leukocytosis -likely due to polycythemia vera Diarrhea UA not suggestive of UTI No other obvious source of infection Stool for C. difficile negative Will hold off antibiotics for now Hypoxia ? Mild congestion on CXR ? Due to shallow breathing due to pain Lasix as needed at home Echo showed good EF Incentive spirometry Weaned off of supplemental oxygen Saturating well on room air Abnormal EKG Mild troponin elevation likely demand ischemia Troponin trended down Denies chest pain, dyspnea Echo: No wall motion abnormality on echo Hypokalemia Hypomagnesemia Replete and monitor Thyroid nodules Incidental finding Normal TSH Advised to follow-up with PCP as outpatient Polycythemia vera -Continue hydroxyurea DM II Continue insulin per protocol Monitor blood glucose levels PAF on chronic AC continue Eliquis Not on rate or rhythm control medications monitor Hypertension Dyslipidemia continue home meds DVT Px: Eliquis CODE STATUS Full code Disposition Rehab when accepted Admission and Anticipated Discharge Date Admission Date: May 27, 2024 Subjective Patient is seen and examined at bedside Reports having transient dizziness this morning which resolved Back pain is controlled Has been using back brace with activity No other complaints today Denies any chest pain, dyspnea, nausea, vomiting, abdominal pain Review of Systems Review of Systems: All systems reviewed & are unremarkable except as noted in Subjective Physical Exam Physical Exam: Physical Exam: Vitals signs as noted above General Appearance:Thin, frail, no apparent distress Head: normocephalic, Atraumatic Eyes: normal inspection, EOMI Neck: supple, Trachea midline Respiratory/Chest: Normal breath sounds, CTA, No accessory muscle use Cardiovascular: S1, S2, No murmur Abdomen/GI:Soft, Non tender, Bowel sounds present Back+ Tenderness,+ brace Extremities/Musculoskeletal:normal inspection, no edema Neurologic/Psych:AAOX3, grossly no focal neurological deficits Skin: normal color, warm, +Left hip surgical scar well healing Results & Data Results & Data Vital Signs (Past 12 Hours) Vital Signs Temp Pulse Resp BP Pulse Ox O2 Del Method 05/30/24 14:55 36.6 C 67 16 118/66 93 Room Air 05/30/24 07:10 36.7 C 64 15 144/72 H 94 Room Air Laboratory Results Short CBC 05/30/24 Range/Units 05:41 WBC 21.55 H (4.8-10.8) K/ul Hgb 11.1 L (12.0-16.0) g/dl Hct 35.2 L (37.0-47.0) % Plt Count 544 H (130-400) K/uL BMP 05/30/24 05:41 Sodium 139 Potassium 3.9 Chloride 102 Carbon Dioxide 32 BUN 13 Creatinine 0.73 Glucose 110 H Calcium 8.7 (1) Closed compression fracture of thoracic vertebra Encounter type: initial encounter Qualified Code(s): S22.000A - Wedge compression fracture of unspecified thoracic vertebra, initial encounter for closed fracture (2) Fall Encounter type: initial encounter Qualified Code(s): W19.XXXA - Unspecified fall, initial encounter (4) Diabetes mellitus, type 2 Diabetes mellitus territory sales consultant insulin use: without territory sales consultant use Diabetes mellitus complication status: with other specified complication Qualified Code(s): E11.69 - Type 2 diabetes mellitus with other specified complication (6) GERD (gastroesophageal reflux disease) Esophagitis presence: esophagitis presence not specified Qualified Code(s): K21.9 - Gastro-esophageal reflux disease without esophagitis (7) Hypertension Hypertension type: unspecified Qualified Code(s): I10 - Essential (primary) hypertension
[2024-05-31 14:58] VITALS: RESP 18; TEMP 98.1
--- NOTE | 2024-05-31 16:35 | Hospitalist Progress Note ---
Date of Service May 31, 2024 Assessment & Plan (1) Closed compression fracture of thoracic vertebra: (2) Fall: (3) Polycythemia vera: (4) Diabetes mellitus, type 2: (5) Paroxysmal atrial fibrillation: (6) GERD (gastroesophageal reflux disease): (7) Hypertension: (8) Dyslipidemia: Plan Patient is a is 79 yr female with DM2, PAF on AC, HTN, dyslipidemia, HFpEF, hx bladder CA (s/p TURP 07/02), polycythemia vera (JAK2 positive), hx breast cancer, remote hx DVT, and other history as listed below who presents to the ED today with a fall. Work-up in the ED including singh CT per protocol revealed an acute T9 compression/burst fracture with 3 mm retropulsion and mild paravertebral edema but no other significant fracture noted. Specifically no interval fracture or hardware complication noted in the left hip. Pt was referred for admission for further management of fracture. Mechanical Fall - loss of balance, no syncope Acute T9 compression/burst fracture --CT T-Spine:Acute fracture at the T9 vertebral body. --Hip X ray:No interval fracture seen. Stable alignment at the proximal left femur fracture. --L Spine CT: No lumbar spine fracture seen. --CT head:No acute intracranial abnormality. Fall precautions PT OT: Recommends rehab placement Bowel regimen to prevent constipation Pain control as needed Appreciate orthopedic spine input: Utilize TLSO brace with activity. No surgical intervention needed. Needs follow-up with orthopedics on discharge with repeat imaging in 4 weeks Plan to discharge to rehab facility when accepted Leukocytosis -likely due to polycythemia vera Diarrhea UA not suggestive of UTI No other obvious source of infection Stool for C. difficile negative Will hold off antibiotics Hypoxia ? Mild congestion on CXR ? Due to shallow breathing due to pain Lasix as needed at home Echo showed good EF Incentive spirometry Hypoxia resolved Saturating well on room air Transient epistaxis Hemoglobin stable Afrin as needed Saline spray as needed to help with dryness Abnormal EKG Mild troponin elevation likely demand ischemia Troponin trended down Denies chest pain, dyspnea Echo: No wall motion abnormality on echo Hypokalemia Hypomagnesemia Replete and monitor Thyroid nodules Incidental finding Normal TSH Advised to follow-up with PCP as outpatient Polycythemia vera -Continue hydroxyurea DM II Continue insulin per protocol Monitor blood glucose levels PAF on chronic AC continue Eliquis Not on rate or rhythm control medications monitor Hypertension Dyslipidemia continue home meds DVT Px: Eliquis CODE STATUS Full code Disposition Rehab when accepted Admission and Anticipated Discharge Date Admission Date: May 27, 2024 Subjective Patient is seen and examined at bedside Reports having sinus congestion today Transient epistaxis Back pain is controlled Denies any chest pain, dyspnea, nausea, vomiting, abdominal pain Waiting for rehab placement Review of Systems Review of Systems: All systems reviewed & are unremarkable except as noted in Subjective Physical Exam Physical Exam: Physical Exam: Vitals signs as noted above General Appearance:Thin, frail, no apparent distress Head: normocephalic, Atraumatic Eyes: normal inspection, EOMI Neck: supple, Trachea midline Respiratory/Chest: Normal breath sounds, CTA, No accessory muscle use Cardiovascular: S1, S2, No murmur Abdomen/GI:Soft, Non tender, Bowel sounds present Back+ Tenderness,+ brace Extremities/Musculoskeletal:normal inspection, no edema Neurologic/Psych:AAOX3, grossly no focal neurological deficits Skin: normal color, warm, +Left hip surgical scar well healing Results & Data Results & Data Vital Signs (Past 12 Hours) Vital Signs Temp Pulse Resp BP Pulse Ox O2 Del Method 05/31/24 14:58 36.7 C 69 18 151/77 H 94 Room Air 05/31/24 07:35 36.6 C 63 16 159/75 H 93 Room Air (1) Closed compression fracture of thoracic vertebra Encounter type: initial encounter Qualified Code(s): S22.000A - Wedge compression fracture of unspecified thoracic vertebra, initial encounter for closed fracture (2) Fall Encounter type: initial encounter Qualified Code(s): W19.XXXA - Unspecified fall, initial encounter (4) Diabetes mellitus, type 2 Diabetes mellitus complication status: with other specified complication Diabetes mellitus long term care pharmacist insulin use: without long term care pharmacist use Qualified Code(s): E11.69 - Type 2 diabetes mellitus with other specified complication (6) GERD (gastroesophageal reflux disease) Esophagitis presence: esophagitis presence not specified Qualified Code(s): K21.9 - Gastro-esophageal reflux disease without esophagitis (7) Hypertension Hypertension type: unspecified Qualified Code(s): I10 - Essential (primary) hypertension
[2024-05-31 19:52] VITALS: PULSE 62; O2SAT 93
[2024-06-01 07:33] VITALS: BP 169/83
--- NOTE | 2024-06-01 07:49 | Hospitalist Progress Note ---
Date of Service June 01, 2024 Assessment & Plan (1) Closed compression fracture of thoracic vertebra: (2) Diabetes mellitus, type 2: (3) Paroxysmal atrial fibrillation: (4) GERD (gastroesophageal reflux disease): (5) Hypertension: (6) Dyslipidemia: Plan Patient is a is 79 yr female with DM2, PAF on AC, HTN, dyslipidemia, HFpEF, hx bladder CA (s/p TURP 07/02), polycythemia vera (JAK2 positive), hx breast cancer, remote hx DVT, and other history as listed below who presents to the ED today with a fall. Work-up in the ED including singh CT per protocol revealed an acute T9 compression/burst fracture with 3 mm retropulsion and mild paravertebral edema but no other significant fracture noted. Specifically no interval fracture or hardware complication noted in the left hip. Pt was referred for admission for further management of fracture. Mechanical Fall - loss of balance, no syncope Acute T9 compression/burst fracture --CT T-Spine:Acute fracture at the T9 vertebral body. --Hip X ray:No interval fracture seen. Stable alignment at the proximal left femur fracture. --L Spine CT: No lumbar spine fracture seen. --CT head:No acute intracranial abnormality. Fall precautions PT OT: Recommends rehab placement Bowel regimen to prevent constipation Pain control as needed Appreciate orthopedic spine input: Utilize TLSO brace with activity. No surgical intervention needed. Advised to follow-up with orthopedics on discharge with repeat imaging in 4 weeks SNF today Leukocytosis -likely due to polycythemia vera Diarrhea UA not suggestive of UTI No other obvious source of infection Stool for C. difficile negative Will hold off antibiotics Diarrhea resolved Hypoxia ? Mild congestion on CXR ? Due to shallow breathing due to pain Lasix as needed at home Echo showed good EF Incentive spirometry Hypoxia resolved Saturating well on room air Transient epistaxis Hemoglobin stable Afrin as needed Saline spray as needed to help with dryness Resolved Abnormal EKG Mild troponin elevation likely demand ischemia Troponin trended down Denies chest pain, dyspnea Echo: No wall motion abnormality on echo Hypokalemia Hypomagnesemia Replete and monitor Thyroid nodules Incidental finding Normal TSH Advised to follow-up with PCP as outpatient Polycythemia vera -Continue hydroxyurea DM II Continue insulin per protocol Monitor blood glucose levels PAF on chronic AC continue Eliquis Not on rate or rhythm control medications monitor Hypertension Dyslipidemia continue home meds DVT Px: Eliquis CODE STATUS Full code Disposition SNF today Admission and Anticipated Discharge Date Admission Date: May 27, 2024 Subjective Patient is seen and examined at bedside States feeling well today Epistaxis, sinus congestion resolved No new complaints today Back pain is controlled Denies any chest pain, dyspnea, nausea, vomiting, abdominal pain Plan to be discharged to rehab facility today Review of Systems Review of Systems: All systems reviewed & are unremarkable except as noted in Subjective Physical Exam Physical Exam: Physical Exam: Vitals signs as noted above General Appearance:Thin, frail, no apparent distress Head: normocephalic, Atraumatic Eyes: normal inspection, EOMI Neck: supple, Trachea midline Respiratory/Chest: Normal breath sounds, CTA, No accessory muscle use Cardiovascular: S1, S2, No murmur Abdomen/GI:Soft, Non tender, Bowel sounds present Back+ Tenderness,+ brace Extremities/Musculoskeletal:normal inspection, no edema Neurologic/Psych:AAOX3, grossly no focal neurological deficits Skin: normal color, warm, +Left hip surgical scar well healing Results & Data Results & Data Vital Signs (Past 12 Hours) Vital Signs Temp Pulse Resp BP Pulse Ox O2 Del Method 06/01/24 07:30 36.7 C 62 18 169/83 H 93 Room Air 05/31/24 19:51 36.7 C 62 18 151/79 H 93 Room Air (1) Closed compression fracture of thoracic vertebra Encounter type: initial encounter Qualified Code(s): S22.000A - Wedge compression fracture of unspecified thoracic vertebra, initial encounter for closed fracture (2) Diabetes mellitus, type 2 Diabetes mellitus complication status: with other specified complication Diabetes mellitus prison insulin use: without predatory animal exterminator use Qualified Code(s): E11.69 - Type 2 diabetes mellitus with other specified complication (4) GERD (gastroesophageal reflux disease) Esophagitis presence: esophagitis presence not specified Qualified Code(s): K21.9 - Gastro-esophageal reflux disease without esophagitis (5) Hypertension Hypertension type: unspecified Qualified Code(s): I10 - Essential (primary) hypertension
--- NOTE | 2024-06-01 07:55 | Discharge Summary ---
Date of Service June 01, 2024 Admission HPI Per Admitting Provider This is 79 y/o female with DM2, PAF on AC, HTN, dyslipidemia, HFpEF, hx bladder CA (s/p TURP 07/02), polycythemia vera (JAK2 positive), hx breast cancer, remote hx DVT, and other history as listed below who presents to the ED today with a fall. She was admitted to this facility 04/13/24-04/16/24 after a fall with resultant left proximal femur fracture for which she underwent left hip ORIF. She was discharged to rehab and completed rehab only a week ago. She is currently staying with her daughter before ultimately planning to return home to [place] at [place]. This morning when she was trying to maneuver her w alker out of the bathroom, she caught the tray of the walker on the doorway of the bathroom and lost her balance. She landed on her right side with her right ribs taking the brunt of the fall. No LOC, no head injury. She was unable to get off the floor so EMS called and was brought to the ED as an injury alert. Her main complaint of pain at present is right thoracic area - back > ribs. She is also concerned because she feels like she has had increased issue with her breathing since discharge from the hospital but relates this to not being able to use her inhaler or nasal spray at rehab because it was not ordered. Notes increased nasal congestion due to allergies. She has been having diarrhea for the last few weeks - using Imodium but only gives her transient relief. Was on course of cefdinir in late March for sinusitis and possible UTI. She reports increased urinary frequency, dysuria. Urinating every 2-3 hours at night. She denies fevers, chest pain, nausea, vomiting. Appetite has been decreased. She also notes increased stress over the last several weeks with resultant panic attacks since her had to be placed in memory care due to worsening dementia. Was given script for PRN Ativan, which she has used sparingly. Most recent dose was last night for panic attack symptoms. Pt's outpatient labs were reviewed - pt with chronic leukocytosis that has gradually worsened over the last year. She has a known history of polycythemia vera, JAK2 mutation positive, on hydroxyurea - follows with Dr. Stinson, prn phlebotomy for Hct >45/46. 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 Since discharge from the hospital last month, she saw Dr. Stinson and a possible dose reduction of Eliquis was discussed but pt was to talk to cardiology. Outpatient notes reviewed and cardiology preferred not to reduce dose due to concerns of the 2.5 mg being inadequate to prevent strokes/clot formation. Admission Exam Per Admitting Provider General: awake, alert, NAD but appears uncomfortable at times, frequently shifting position in bed. HEENT: no scleral icterus, moist oral mucosa Neck: supple, trachea midline Heart: RRR Lungs: CTA bilaterally on the anterior Abdomen: soft, NT, +BS Extremities: no pedal edema, distal pulses intact and equal Skin: left hip incision well-healed without signs of erythema or warmth Neurologic: OX3, no confusion or dysarthria, moving all extremities without focal deficit. Principal Diagnosis Mechanical Fall Acute T9 compression/burst fracture Polycythemia vera Hypokalemia Hypomagnesemia Thyroid nodules Discharge Data Allergies Allergy/AdvReac Type Severity Reaction Status Date / Time adhesive tape Allergy Intermediate Hives Verified 04/14/24 09:05 Iodinated Contrast Media Allergy Intermediate HIVES TO Verified 04/14/24 09:05 RADIO OPAQUE CONTRAST iodine Allergy Intermediate HIVES- Verified 04/14/24 09:05 ALSO SEAFOOD-HIVES iothalamate sodium Allergy Intermediate Hives Verified 04/14/24 09:05 latex Allergy Intermediate HIVES Verified 04/14/24 09:05 morphine Allergy Intermediate hives Verified 04/14/24 09:05 hydrocodone AdvReac Mild BAD TASTE Verified 04/14/24 09:05 IN MOUTH lactose AdvReac Mild INTOLERANT Verified 04/14/24 09:05 sulindac [From Clinoril] AdvReac Mild "Out of Verified 04/14/24 09:05 body experience" Consultations 05/27/24 16:49 ED Decision to Admit Stat 05/27/24 20:42 Consult Orthopedic Spine Surgery Routine Procedures Performed Laboratory Results WBC 21.55 K/ul (4.8-10.8) H 05/30/24 05:41 RBC 3.48 M/uL (4.20-5.40) L 05/30/24 05:41 Hgb 11.1 g/dl (12.0-16.0) L 05/30/24 05:41 POC Hgb 15.0 g/dl (12.0-16.0) 05/27/24 13:52 Hct 35.2 % (37.0-47.0) L 05/30/24 05:41 POC Hct 44 % (37-47) 05/27/24 13:52 MCV 101.1 fL (80.0-100.0) H 05/30/24 05:41 MCH 31.9 pg (25.0-34.0) 05/30/24 05:41 MCHC 31.5 g/dL (32.0-36.0) L 05/30/24 05:41 RDW Std Deviation 58.7 fL (36.4-46.3) H 05/30/24 05:41 RDW Coeff of Ahsan 15.9 % (11.5-14.5) H 05/30/24 05:41 Plt Count 544 K/uL (130-400) H 05/30/24 05:41 MPV 13.3 fL (9.4-12.4) H 05/30/24 05:41 Immature Gran % (Auto) 1.1 % 05/28/24 07:21 Neut % (Auto) 87.3 % 05/28/24 07:21 Lymph % (Auto) 5.0 % 05/28/24 07:21 [place]oard % (Auto) 3.7 % 05/28/24 07:21 Eos % (Auto) 1.7 % 05/28/24 07:21 Baso % (Auto) 1.2 % 05/28/24 07:21 Neut # (Auto) 19.66 K/uL (1.40-6.50) H 05/28/24 07:21 Lymph # (Auto) 1.12 K/uL (1.20-3.40) L 05/28/24 07:21 [place]oard # (Auto) 0.84 K/uL (0.11-0.59) H 05/28/24 07:21 Eos # (Auto) 0.38 K/uL (0.00-0.50) 05/28/24 07:21 Baso # (Auto) 0.26 K/uL (0.00-0.20) H 05/28/24 07:21 Immature Gran # (Auto) 0.24 K/uL (0.01-0.20) H 05/28/24 07:21 PT 12.4 Seconds (9.0-12.0) H 05/27/24 13:45 INR 1.2 (0.9-1.1) H 05/27/24 13:45 APTT 33 Seconds (21-31) H 05/27/24 13:45 PTT Ratio 1.2 05/27/24 13:45 POC Sodium 140 mmol/L (135-144) 05/27/24 13:52 Sodium 139 mmol/L (136-145) 05/30/24 05:41 POC Potassium 3.2 mmol/L (3.3-5.0) L 05/27/24 13:52 Potassium 3.9 mmol/L (3.5-5.1) 05/30/24 05:41 POC Chloride 99 mmol/L (101-112) L 05/27/24 13:52 Chloride 102 mmol/L (98-107) 05/30/24 05:41 Carbon Dioxide 32 mmol/L (21-32) 05/30/24 05:41 POC Total CO2 29 mmol/L (24-31) 05/27/24 13:52 Anion Gap 5 (3-11) 05/30/24 05:41 POC Anion Gap 16.0 mmol/L (16-25) 05/27/24 13:52 POC BUN 9 mg/dl (7-18) 05/27/24 13:52 BUN 13 mg/dl (6-23) 05/30/24 05:41 Creatinine 0.73 mg/dl (0.6-1.2) 05/30/24 05:41 POC Creatinine 2.3 mg/dl (0.6-1.3) H 05/27/24 13:52 Est Cr Clr Drug Dosing 47.9 ml/min 05/30/24 05:41 eGFR 84.12 05/30/24 05:41 BUN/Creatinine Ratio 17.8 (10-20) 05/30/24 05:41 Glucose 110 mg/dl (70-99(Fasting)) H 05/30/24 05:41 POC Glucose 102 mg/dl (70-99) H 06/01/24 07:29 POC Glucose (other) 125 mg/dl (70-99) H 05/27/24 13:52 Calcium 8.7 mg/dl (8.6-10.3) 05/30/24 05:41 POC Ioniz Calcium Radha 1.10 mmol/l (1.12-1.32) L 05/27/24 13:52 Magnesium 1.6 mg/dl (1.7-2.4) L 05/31/24 06:18 Total Bilirubin 1.3 mg/dl (0.2-1.0) H 05/27/24 13:45 AST 22 U/L (13-39) 05/27/24 13:45 ALT 6 U/L (7-52) L 05/27/24 13:45 Alkaline Phosphatase 177 U/L (34-104) H 05/27/24 13:45 Troponin I High Sens 68.0 pg/ml (0-14) H* D 05/29/24 05:44 Total Protein 7.1 gm/dl (6.0-8.3) 05/27/24 13:45 Albumin 4.3 gm/dl (3.4-5.0) 05/27/24 13:45 Globulin 2.8 gm/dl (2.5-4.0) 05/27/24 13:45 Albumin/Globulin Ratio 1.5 (0.9-2) 05/27/24 13:45 Lipase 9 U/L (11-82) L 05/27/24 13:45 TSH 1.564 uIu/ml (0.300-4.500) 05/29/24 05:44 Urine Color Yellow 05/27/24 17:47 Urine Appearance Clear (Clear) 05/27/24 17:47 Urine pH 8.0 (4.5-7.5) H 05/27/24 17:47 Ur Specific [place] 1.006 (1.000-1.030) 05/27/24 17:47 Urine Protein Negative (Negative) 05/27/24 17:47 Urine Glucose (UA) Negative (Negative) 05/27/24 17:47 Urine Ketones Negative (Negative) 05/27/24 17:47 Urine Blood Negative (Negative) 05/27/24 17:47 Urine Nitrite Negative (Negative) 05/27/24 17:47 Urine Bilirubin Negative (Negative) 05/27/24 17:47 Urine Urobilinogen Negative (Negative) 05/27/24 17:47 Ur Leukocyte Esterase Negative (Negative) 05/27/24 17:47 Stl C. diff Tox B Gene Negative Cdiff Gene (Neg) 05/29/24 09:36 Impressions Abdomen/Pelvis CT 05/27/24 13:[address] WITHOUT CONTRAST HISTORY: fall TECHNIQUE: Multiaxial CT images of the abdomen and pelvis were performed without contrast. A dose lowering technique was utilized adhering to the principles of ALARA. COMPARISON STUDY: 06/13/2022 FINDINGS: ABDOMEN: Gallbladder is surgically absent. Liver, spleen, pancreas, adrenal glands, and kidneys show no evidence of acute injury on this noncontrast exam. There are scattered atherosclerotic calcifications. No abdominal aortic aneurysm. Pelvis: Uterus and adnexal regions are grossly unremarkable. Urinary bladder is nondistended. There is mild sigmoid diverticulosis. No acute diverticulitis. No free fluid, free air, or abscess. No hematoma seen. Osseous structures: Visualized left femoral gamma nail is stable compared with the 04/13/2024 x-ray and the proximal left femur fracture demonstrates no significant displacement. There is interval mild vertebral body compression fracture at T9. No other acute osseous finding seen. IMPRESSION: 1. Acute T9 vertebral body compression fracture. 2. No other acute findings seen. Otherwise as described. ACT 112: Negative or not required by law. The above report was generated using voice recognition software. It may contain grammatical, syntax or spelling errors. Electronically signed by: Dre Campbell M.D. 05/27/2024 2:[address] 05/27/24 13:35 CT chest diagnostic wo con CLINICAL HISTORY: 79 years-old Female with fall. Acute chest trauma status post fall TECHNIQUE: Multiaxial CT images of the chest were performed without contrast. A dose lowering technique was utilized adhering to the principles of ALARA. COMPARISON: CT abdomen and pelvis and lumbar spine studies of same day FINDINGS: No dominant thyroid nodule. Calcified left hilar lymph nodes compatible with prior granulomatous disease. Cardiomegaly with mitral annular and extensive coronary artery calcifications. No thoracic aortic aneurysm. Main pulmonary artery measures up to 4.1 cm compatible with pulmonary arterial hypertension. Trace pleural effusions. Intralobular and bronchial wall thickening with intermixed groundglass densities and mild bibasilar atelectasis. 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 Cholecystectomy. Peripherally calcified likely benign right breast lesion. Anasarca. Degenerative changes of the shoulders and spine. Acute superior endplate compression deformity at T9 with 3 mm retropulsion and approximately 20% vertebral body height loss. No definite fracture extension into the posterior elements. Mild paravertebral edema. Healed chronic fracture deformity of the sternum. IMPRESSION: 1. Acute T9 superior endplate compression deformity/burst fracture with 3 mm retropulsion and mild paravertebral edema. 2. No acute rib fracture or pneumothorax. 3. Cardiomegaly with pulmonary edema and trace pleural effusions. 4. Pulmonary arterial hypertension. 5. Please refer to the same day CT abdomen and pelvis study for additional findings. ACT 112: Negative or not required by law. Electronically signed by: Kvng Saenz M.D. 05/27/2024 2:[address] 05/27/24 13:36 CT cervical spine wo con CT DOSE: 2524.30mGy*cm CLINICAL HISTORY: Trauma. Ground-level fall COMPARISON: None TECHNIQUE: Multiple axial CT images of the cervical spine were obtained without contrast. Sagittal and coronal reconstructions were done. A dose lowering technique was utilized adhering to the principles of ALARA. FINDINGS: There is no acute traumatic cervical spine injury identified. There is no fracture or traumatic malalignment. The prevertebral soft tissues are not sw ollen. The atlantoaxial articulation and the odontoid are intact. There is a unilateral right-sided facet fusion at C3-4. There is multilevel cervical spondylosis and facet arthrosis. There is a nodular thyroid gland with a solid nodule projecting from the lower pole the left lobe. Consider correlation with thyroid ultrasound on elective procedure. IMPRESSION: No acute traumatic cervical spine injury. Multinodular thyroid consider elective thyroid ultrasound. ACT 112: Negative or not required by law. The above report was generated using voice recognition software. It may contain grammatical, syntax or spelling errors. Electronically signed by: Keely Gallardo M.D. 05/27/2024 2:30 PM Chest X-Ray 05/27/24 13:36 XR chest 1V portable CLINICAL HISTORY: Trauma COMPARISON STUDY: 04/13/2024 FINDINGS: There is stable cardiomegaly with mild pulmonary vascular congestion. There is mild pulmonary interstitial prominence. There is no pulmonary consolidation or pleural effusion. No pneumothorax. Stable old fracture proximal left humerus. IMPRESSION: 1. Mild CHF. 2. No other acute findings seen. ACT 112: Negative or not required by law. Electronically signed by: Dre Campbell M.D. 05/27/2024 2:[address] 05/27/24 13:36 CT head/brain wo con CLINICAL HISTORY: 79 years-old Female with trauma. Acute head trauma TECHNIQUE: Multiple axial CT images of the head were obtained without contrast. A dose lowering technique was utilized adhering to the principles of ALARA. COMPARISON: None. FINDINGS: No acute intracranial hemorrhage, midline shift, intracranial mass, hydrocephalus, territorial ischemia or abnormal extra-axial collection. Mineralization of the basal ganglia. Involutional changes with chronic microvascular ischemic disease. Calcifications of the dentate nuclei are also seen. The calvarium is intact. The paranasal sinuses, mastoid air cells, and middle ear cavities are clear. IMPRESSION: No acute intracranial abnormality. ACT 112: Negative or not required by law. The above report was generated using voice recognition software. It may contain grammatical, syntax or spelling errors. Electronically signed by: Kvng Saenz M.D. 05/27/2024 2:[address] 05/27/24 13:36 CT lumbar spine wo con CLINICAL HISTORY: trauma COMPARISON STUDY: 06/13/2022 FINDINGS: There is diffuse degenerative disc disease. There is mild retrolisthesis of L2 on 3, L3 on 4, and L4 on 5 and grade 1 anterolisthesis of L5 on S1, stable. No lumbar spine fracture seen. There is stable mild scoliosis. IMPRESSION: No lumbar spine fracture seen. ACT 112: Negative or not required by law. Electronically signed by: Dre Campbell M.D. 05/27/2024 2:47 PM Hip/Pelvis X-Ray 05/27/24 13:38 XR hip LT 2V w pelvis CLINICAL HISTORY: fall, recent surgery COMPARISON: 04/28/2024 FINDINGS: Left femoral gamma nail and left knee prosthesis show no hardware complication. Left proximal femur fracture remains nondisplaced. No interval fracture or dislocation seen. IMPRESSION: 1. No interval fracture seen. 2. Stable alignment at the proximal left femur fracture. ACT 112: Negative or not required by law. Electronically signed by: Dre Campbell M.D. 05/27/2024 2:[address] 05/28/24 07:48 CT thoracic spine wo con CLINICAL HISTORY: T9 compresion fracture COMPARISON STUDY: Chest CT of the same day FINDINGS: There is an acute fracture at the T9 vertebral body with mild to moderate height loss. There is mild retropulsion of the posterior superior aspect of the T9 vertebral body without significant central canal narrowing. No other fracture or subluxation seen at the thoracic spine. IMPRESSION: Acute fracture at the T9 vertebral body. ACT 112: Negative or not required by law. Electronically signed by: Dre Campbell M.D. 05/28/2024 9:04 AM Ordered Studies 05/27/24 13:35 CT abd pelvis wo con Stat CT chest diagnostic wo con Stat 05/27/24 13:36 CT cervical spine wo con Stat CT head/brain wo con Stat CT lumbar spine wo con Stat 05/28/24 07:48 CT thoracic spine wo con Urgent Hospital Course (1) Closed compression fracture of thoracic vertebra: (2) Fall: (3) Polycythemia vera: (4) Diabetes mellitus, type 2: (5) Paroxysmal atrial fibrillation: (6) GERD (gastroesophageal reflux disease): (7) Hypertension: (8) Dyslipidemia: Plan Patient is a is 79 yr female with DM2, PAF on AC, HTN, dyslipidemia, HFpEF, hx bladder CA (s/p TURP 07/02), polycythemia vera (JAK2 positive), hx breast cancer, remote hx DVT, and other history as listed below who presents to the ED today with a fall. Work-up in the ED including singh CT per protocol revealed an acute T9 compression/burst fracture with 3 mm retropulsion and mild paravertebral edema but no other significant fracture noted. Specifically no interval fracture or hardware complication noted in the left hip. Pt was referred for admission for further management of fracture. Mechanical Fall - loss of balance, no syncope Acute T9 compression/burst fracture --CT T-Spine:Acute fracture at the T9 vertebral body. --Hip X ray:No interval fracture seen. Stable alignment at the proximal left femur fracture. --L Spine CT: No lumbar spine fracture seen. --CT head:No acute intracranial abnormality. Fall precautions PT OT: Recommends rehab placement Bowel regimen to prevent constipation Pain control as needed Appreciate orthopedic spine input: Utilize TLSO brace with activity. No surgical intervention needed. Advised to follow-up with orthopedics on discharge with repeat imaging in 4 weeks SNF today Leukocytosis -likely due to polycythemia vera Diarrhea UA not suggestive of UTI No other obvious source of infection Stool for C. difficile negative Will hold off antibiotics Diarrhea resolved Hypoxia ? Mild congestion on CXR ? Due to shallow breathing due to pain Lasix as needed at home Echo showed good EF Incentive spirometry Hypoxia resolved Saturating well on room air Transient epistaxis Hemoglobin stable Afrin as needed Saline spray as needed to help with dryness Resolved Abnormal EKG Mild troponin elevation likely demand ischemia Troponin trended down Denies chest pain, dyspnea Echo: No wall motion abnormality on echo Hypokalemia Hypomagnesemia Replete and monitor Thyroid nodules Incidental finding Normal TSH Advised to follow-up with PCP as outpatient Polycythemia vera -Continue hydroxyurea DM II Continue insulin per protocol Monitor blood glucose levels PAF on chronic AC continue Eliquis Not on rate or rhythm control medications monitor Hypertension Dyslipidemia continue home meds DVT Px: Eliquis CODE STATUS Full code Disposition SNF today Total Time Total Time Spent Total Time Spent (In Minutes): 42 minutes Discharge Plan Discharge Items Patient Disposition: Transfer Snf Fac Reason For Visit: FALL, T9 FRACTURE Discharge Diagnosis: Mechanical Fall Acute T9 compression/burst fracture Polycythemia vera Hypokalemia Hypomagnesemia Thyroid nodules Activity: Per Instructions section Exercise/Sports: Gradually increase as tolerated Non-emergency contact: Primary Care Provider and Surgeon Call non-emergency contact if: you have any medication questions, your symptoms worsen, your pain is concerning for you and you have a fever Follow-up/Referrals: Roby Chandra MD [Primary Care Provider] - Diet: Carb Consistent or DM2 Addtl Attending Provider Instructions: - Follow-up with your primary care physician in 1 week upon discharge from rehab facility -Follow-up with your orthopedic surgeon Dr. Ambrosio in 4 weeks with repeat x-rays of spine --Continue to use TLSO brace with activity as advised by your orthopedic surgeon --You incidentally noted to have thyroid nodules on imaging. Discussed with your primary care physician for further management as needed Seek immediate medical attention if your symptoms reoccur or worsen Please review medication list provided on discharge for any medication changes as instructed. Please call if you have any questions or problems. You can reach a [facility] hospitalist on duty at [facility] 24 hours a day by calling [phone] Pending Studies at Discharge: No Stand-Alone Forms: My [facility] Skilled Items Patient informed of condition?: Yes DNR: No Discharge Level of Care: Skilled Communicable Disease: No Discharge Prognosis: Stable Lines: None Urinary Catheter: No Medications and DC Order Prescriptions: New oxycodone 5 mg Tablet 5 mg PO Q8H PRN (Reason: pain) Qty: 10 0RF magnesium chloride [Mag 64] 64 mg Tablet,Delayed Release (Dr/Ec) 64 mg PO BID Qty: 60 0RF Continued hydroxyurea 500 mg Capsule 500 mg PO QAM Qty: 30 0RF atorvastatin 20 mg Tablet 20 mg PO QAM Qty: 30 0RF Rx Instructions: Last filled 04/2023 x15 day supply, prior to was consistently filled for 90 day supplies calcium carbonate-vitamin D3 600 mg-5 mcg (200 unit) Tablet 1 tab PO BID Qty: 60 0RF Rx Instructions: Unable to verify OTC meds at this date/time. acetaminophen 650 mg Tablet Extended Release 650 mg PO QID Qty: 100 0RF Rx Instructions: Unable to verify OTC meds at this date/time. cyanocobalamin (vitamin B-12) [Vitamin B-12] 500 mcg Tablet 500 mcg PO QAM Qty: 30 0RF Rx Instructions: Unable to verify OTC meds at this date/time. gabapentin 300 mg capsule 300 mg PO TID Qty: 90 0RF omeprazole 20 mg Capsule,Delayed Release(Dr/Ec) 20 mg PO QAM Qty: 30 0RF hydroxyzine HCl 10 mg Tablet 10 mg PO QID PRN (Reason: Itching) Qty: 30 0RF fluticasone propionate 50 mcg/actuation [place],Suspension 1 spray INTRANASAL BID PRN (Reason: Congestion) Qty: 1 0RF Rx Instructions: Unable to verify OTC meds at this date/time. Eliquis 5 mg Tablet 5 mg PO BID Qty: 60 0RF furosemide 40 mg tablet 20 mg PO DAILY PRN (Reason: swelling) lorazepam 0.5 mg tablet 0.5 mg PO BID PRN (Reason: Anxiety) loratadine 10 mg tablet 10 mg PO DAILY Rx Instructions: Unable to verify OTC meds at this date/time. albuterol sulfate 90 mcg/actuation Hfa Aerosol Inhaler 2 puff INHALATION Q6H PRN (Reason: cough or wheezing) diclofenac sodium 1 % Gel 2 g TOPICAL QID PRN (Reason: Pain) Rx Instructions: apply to single elbow, wrist or hand; for hand includes palm/fingers/back of hand metformin 500 mg tablet 500 mg PO BID olmesartan [Benicar] 5 mg Tablet 5 mg PO QAM Discharge Orders: Discharge Order (Routine); Ordered 06/01/24 Ordered By: Magnus Villatoro Admission Data Admit Date/Time: 05/27/24 17:42 Attending Provider: Magnus Villatoro Admit Provider: Radha Cardoso Primary Care Provider: Roby Chandra I. Other Providers: Radha Cardoso; Fredi Ambrosio Other Interventions: Discharge Summary Assessment (RN) Last Done: 06/01/24 08:17
== END 2024-06-01 09:03 ==
LOC: ED 13:20 → 3E 17:42 → SUATTDRO 17:42 → INTOOBSV 17:42 → 3E 19:59